=== PATIENT | male | born 1965 | race Caucasian/White ===

== ENCOUNTER 2023-09-02 11:04 | Outpatient (AMB) | payer OTHER, SELFPAY ==
[2023-09-02 11:15] VITALS: BP 136/68; PULSE 105; O2SAT 98; BMI 32.1
--- NOTE | 2023-09-02 11:15 | MHC.OFFVIS ---
Intake Vital Signs 09/02/23 11:15 Height 5 ft 10 in Weight 224 lb BMI 32.1 BP 136/68 Blood Pressure Location Lt brachial Position Sitting Pulse 105 H Pulse Source Pulse Oximeter Pulse Oximetry (%) 98 Oxygen Delivery Method Room Air Intake Visit Reasons: COPD Technician Terminal And Repeater Required: No Security Operations Engineer: Security Operations Engineer offered & declined Accompanied by: Self / Same As Patient Allergies No Known Allergies Allergy (Verified 09/02/23 11:20) Medication List - Last Reconciled 09/02/23 by Diamond Agudelo LPN amlodipine 10 mg PO DAILY atorvastatin 10 mg PO BEDTIME cyclosporine 0.05% 1 drp ophthalmic (eye) Q12H magnesium oxide 420 mg PO DAILY HPI COPD HPI Details Kvng is a pleasant 58 year old male, with less than 10 pack year history, quit 30+ years ago, with underlying COPD and hypertension. He was referred by PCP for pulmonary evaluation after spirometry revealed moderate obstruction. He reports dyspnea with minimal exertion, intermittent wheezing, chest tightness and dry cough over the last few months. He reports chest CT from 2020 noted nodules, however report not available. 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 He denies any prior respiratory conditions or pertinent family history. [facility] Social History (Updated 09/02/23 @ 11:24 by Diamond Agudelo LPN) Patient Tobacco Use Status: Former Tobacco user Tobacco use type: Cigarette Cigarette Packs Per Day: 1 Years Smoked: 5 Review of Systems Const Denies chills, Denies excessive sweating, Denies fever(s), Denies headache(s) and Denies night sweats Eyes Denies dry eyes, Denies irritation and Denies itchy eyes ENT Reports Normal hearing present, Denies headache(s), Denies nasal congestion, Denies nasal discharge, Denies post nasal drip and Denies sore throat Card Denies chest pain, Denies chest pain at rest, Denies chest pain with activity, Denies claudication, Denies leg edema, Denies orthopnea and Denies paroxysmal nocturnal dyspnea Resp Denies chest congestion, Denies excessive phlegm production, Denies pain on inspiration, Denies pain with cough and Denies stridor Musc Denies myalgias Neuro Reports Normal hearing present and Denies headache(s) Endo Denies excessive sweating Muaricio/Lymph Denies lymphadenopathy Aller/Immun Denies itchy eyes and Denies seasonal rhinorrhea Physical Exam Vital Signs: Last Vital Signs Pulse 105 H 09/02/23 11:15 BP 136/68 09/02/23 11:15 Pulse Ox 98 09/02/23 11:15 Oxygen Delivery Method Room Air 09/02/23 11:15 BMI result Body Mass Index 32.1 Const General: cooperative, healthy appearing, comfortable, no acute distress, well developed and alert Nutritional Appearance: obese Orientation/consciousness: patient oriented x3 Limitations: no limitations HEENT Head: Yes normal to inspection, Yes normocephalic and Yes atraumatic Ears: hearing grossly normal bilaterally and external ears normal Eyes General: appearance normal, both eyes and all related structures Eyelids: Yes eyelids normal Sclerae: sclerae normal EOM: EOMs intact bilaterally Neck Neck: Yes normal visual inspection and Yes no lymphadenopathy Lymphatic: no lymphadenopathy noted Chest Chest palpation & inspection: normal inspection of the chest Resp Effort & Inspection: normal respiratory effort, able to speak in complete sentences, no audible wheezes, no cough, no stridor, not tachypneic, no tripod positioning and no use of accessory muscles Auscultation: diminished lung sounds Cardio Jugular venous distension: no JVD Rate: regular rate Rhythm: regular rhythm Skin Other: warm, dry General skin exam: no rashes or lesions noted Neuro General: patient oriented x3 Cranial nerves: Yes Normal hearing present Cognition (Neuro): normal cognition Gait exam (Neuro): Normal gait present Extrem General: Yes normal to inspection, Yes capillary refill normal, Yes no clubbing, cyanosis or edema and Yes no pedal edema Psych Appearance: grossly normal and well kempt Speech and movement: Normal speech and movement present and Clear speech present Affect: normal affect Attitude: cooperative Thought process: Normal thought process present Thought content: Normal thought content present Insight: Good insight present (Psych) Judgement: Good judgement present (Psych) Assessment & Plan Assessment & Plan (1) COPD (chronic obstructive pulmonary disease): Code(s): J44.9 - Chronic obstructive pulmonary disease, unspecified (2) Dyspnea: Code(s): R06.00 - Dyspnea, unspecified (3) Pulmonary nodule: Code(s): R91.1 - Solitary pulmonary nodule Plan Kvng's symptoms are likely related to pulmonary etiologies. Will send for full PFT and chest CT. Will empically trial on Breo. Reviewed inhaler technique and importance of good oral hygiene. All questions were answered and patient is in agreement of plan. Will follow up to review results and response to inhaler. Orders: Orders PFT pulmonary function test Today R06.00 - Dyspnea, unspecified CT chest wo IV con Today R06.00 - Dyspnea, unspecified, R91.1 - Solitary pulmonary nodule Medications: New albuterol sulfate 90 mcg/actuation 2 puffs inhalation Q4-6H PRN 1 ea 3RF shortness of breath or wheezing fluticasone furoate-vilanterol 100-25 mcg/dose (Breo Ellipta) 1 inh inhalation DAILY 60 ea 3RF Coding Level of Care Code New Pt Level 4 (77701) Diagnoses COPD (chronic obstructive pulmonary disease) J44.9 Dyspnea R06.00 Pulmonary nodule R91.1
== END 2023-09-02 12:09 | disposition home or self-care (01) ==
PROVIDERS: PCP Family Medicine; Visit Provider Nurse Practitioner Family
DX: J44.9 Chronic obstructive pulmonary disease, unspecified (principal); R06.00 Dyspnea, unspecified; R91.1 Solitary pulmonary nodule
CPT/HCPCS: 99204

== ENCOUNTER → 2023-09-02 11:04 | Outpatient (BNVA) | payer OTHER, SELFPAY | PROVIDERS: PCP Family Medicine; Visit Provider Nurse Practitioner Family | DX: J44.9 Chronic obstructive pulmonary disease, unspecified (principal); R06.00 Dyspnea, unspecified; R91.1 Solitary pulmonary nodule | CPT/HCPCS: 99202 ==

== ENCOUNTER 2023-09-18 07:13 | Outpatient (REF) | payer OTHER, SELFPAY ==
--- NOTE | ~2023-09-18 | CT_ITS ---
EXAMINATION: CT CHEST WITHOUT CONTRAST CLINICAL INFORMATION: Solitary pulmonary nodule. COMPARISON: None available. TECHNIQUE: Multidetector volumetric CT imaging of the chest was done. Axial MIP volume rendering provided. Sagittal and coronal reformatted images were obtained. This CT examination was performed using dose optimization techniques as appropriate, variously including the following: *Automated exposure control *Adjustment of mA and/or kV according to patient size (this includes techniques or standardized protocols for targeted exams where dose is matched to indication/reason for exam; i.e. extremities or head) *Use of iterative reconstruction technique DLP: 181 mGy-cm FINDINGS: LUNGS: No suspicious pulmonary nodules. No focal consolidation. Central airways are patent. MEDIASTINUM: No bulky axillary, hilar or mediastinal lymphadenopathy. Calcified right hilar and subcarinal lymph nodes. Great vessels are of normal caliber. Heart size is normal. No pericardial effusion. CORONARY ARTERY CALCIFICATION: None visualized on this study. PLEURA: There is no pleural effusion. No pleural mass or thickening. UPPER ABDOMEN: Unremarkable. OSSEOUS STRUCTURES: No destructive bone lesions. CT/CT chest wo IV con IMPRESSION: No acute intrathoracic abnormality.
== END 2023-09-18 07:14 | disposition home or self-care (01) ==
LOC: HO.CT 07:13
PROVIDERS: PCP Family Medicine; Visit Provider Nurse Practitioner Family
DX: R91.1 Solitary pulmonary nodule (principal); R06.00 Dyspnea, unspecified
CPT/HCPCS: 71250

== ENCOUNTER 2023-10-28 14:47 | Outpatient (REF) | payer OTHER, SELFPAY ==
[2023-10-28 09:45] VITALS: PULSE 80; RESP 16; O2SAT 95
--- NOTE | 2023-10-28 15:35 | PFT_ITS ---
Flows: FEV1: 96 % of predicted at 3.47 L FVC: 88 % of predicted at 4.10 L FEV1/FVC: 85 % Bronchodilator response: Absent Volumes: No lung volumes measurements performed secondary to a technical issue. Diffusion capacity: Normal Impression: No obstructive ventilatory defect. No bronchodilator response. No lung volumes measurements performed secondary to technical a issue. MTDD
== END 2023-10-28 14:48 | disposition home or self-care (01) ==
LOC: HO.RESP 14:47
PROVIDERS: PCP Internal Medicine; Visit Provider Nurse Practitioner Family
DX: R06.00 Dyspnea, unspecified (principal)
CPT/HCPCS: 94010; 94640; 94727; 94729

== ENCOUNTER → 2023-10-28 15:35 | Outpatient (BNV) | payer OTHER, SELFPAY | PROVIDERS: PCP Internal Medicine; Visit Provider Internal Medicine Pulmonary Disease | DX: R06.00 Dyspnea, unspecified (principal) | CPT/HCPCS: 94060; 94729 ==

== ENCOUNTER 2023-11-11 08:31 | Outpatient (AMB) | payer OTHER, SELFPAY ==
--- NOTE | 2023-11-11 08:35 | A.OFFVIS_ITS ---
Intake Vital Signs 11/11/23 08:36 Height 5 ft 10 in Weight 227 lb BMI 32.6 BP 128/70 Pulse 79 Pulse Source Pulse Oximeter Pulse Oximetry (%) 100 Oxygen Delivery Method Room Air Intake Visit Reasons: copd: 10 week f/u Service Person Required: No Machine Packager: Machine Packager offered & declined Accompanied by: Self / Same As Patient Allergies No Known Allergies Allergy (Verified 11/11/23 08:39) Medication List - Last Reconciled 11/11/23 by Diamond Agudelo LPN albuterol sulfate 90 mcg/actuation 2 puffs inhalation Q4-6H PRN amlodipine 10 mg PO DAILY atorvastatin 10 mg PO BEDTIME cyclosporine 0.05% 1 drp ophthalmic (eye) Q12H fluticasone propion-salmeterol 100-50 mcg/dose (Wixela Inhub) 1 inh inhalation BID magnesium oxide 420 mg PO DAILY HPI copd: 10 week f/u HPI Details Kvng is a pleasant 58 year old male, with less than 10 pack year history, quit 30+ years ago, with underlying COPD and hypertension. He was referred by PCP for pulmonary evaluation after spirometry revealed moderate obstruction. He reports dyspnea with minimal exertion, intermittent wheezing, chest tightness and dry cough over the last few months. At the last visit, he was started on wixela with significant improvement in symptoms. He reports notable decrease in dyspnea, wheezing and chest tightness. He also reports diminished cough. He continues to use albuterol PRN with good effect. Today he presents to review PFT and chest CT. [facility] Social History (Updated 11/11/23 @ 08:40 by Diamond Agudelo LPN) Patient Tobacco Use Status: Former Tobacco user Tobacco use type: Cigarette Cigarette Packs Per Day: 1 Years Smoked: 5 Review of Systems Const Denies chills, Denies excessive sweating, Denies fever(s), Denies headache(s) and Denies night sweats Eyes Denies dry eyes, Denies irritation and Denies itchy eyes ENT Reports Normal hearing present, Denies headache(s), Denies nasal congestion, Denies nasal discharge, Denies post nasal drip and Denies sore throat Card Denies chest pain, Denies chest pain at rest, Denies chest pain with activity, Denies claudication, Denies leg edema, Denies dyspnea, Denies dyspnea on exertion, Denies orthopnea and Denies paroxysmal nocturnal dyspnea Resp Denies chest congestion, Denies excessive phlegm production, Denies pain on inspiration, Denies pain with cough, Denies dyspnea, Denies dyspnea on exertion, Denies stridor and Denies wheezing Musc Denies myalgias Neuro Reports Normal hearing present and Denies headache(s) Endo Denies excessive sweating Mauricio/Lymph Denies lymphadenopathy Aller/Immun Denies itchy eyes, Denies seasonal rhinorrhea and Denies wheezing Physical Exam Vital Signs: Last Vital Signs Pulse 79 11/11/23 08:36 BP 128/70 11/11/23 08:36 Pulse Ox 100 11/11/23 08:36 Oxygen Delivery Method Room Air 11/11/23 08:36 BMI result Body Mass Index 32.6 Const General: cooperative, healthy appearing, comfortable, no acute distress, well developed and alert Nutritional Appearance: obese Orientation/consciousness: patient oriented x3 Limitations: no limitations HEENT Head: Yes normal to inspection, Yes normocephalic and Yes atraumatic Ears: hearing grossly normal bilaterally and external ears normal Eyes General: appearance normal, both eyes and all related structures Eyelids: Yes eyelids normal Sclerae: sclerae normal EOM: EOMs intact bilaterally Neck Neck: Yes normal visual inspection and Yes no lymphadenopathy Lymphatic: no lymphadenopathy noted Chest Chest palpation & inspection: normal inspection of the chest Resp Effort & Inspection: normal respiratory effort, able to speak in complete sentences, no audible wheezes, no cough, no stridor, not tachypneic, no tripod positioning and no use of accessory muscles Auscultation: clear to auscultation bilaterally Cardio Jugular venous distension: no JVD Rate: regular rate Rhythm: regular rhythm Skin Other: warm, dry General skin exam: no rashes or lesions noted Neuro General: patient oriented x3 Cranial nerves: Yes Normal hearing present Cognition (Neuro): normal cognition Gait exam (Neuro): Normal gait present Extrem General: Yes normal to inspection, Yes capillary refill normal, Yes no clubbing, cyanosis or edema and Yes no pedal edema Psych Appearance: grossly normal and well kempt Speech and movement: Normal speech and movement present and Clear speech present Affect: normal affect Attitude: cooperative Thought process: Normal thought process present Thought content: Normal thought content present Insight: Good insight present (Psych) Judgement: Good judgement present (Psych) Results Reviewed Results Reviewed: [address] [address] [address] Scan Report Signed Patient: Kvng Cosme MR#: [id number] : 1965 Acct:[id number] Age/Sex: 58 / M ADM Date: 09/18/23 Loc: HO.CT Attending Dr: Lorin Batista NP Ordering Physician: Lorin Batista NP Date of Service: 09/18/23 Procedure(s): CT chest wo IV con Accession Number(s): [id number] cc: Pavel Schreiber MD; Lorin Batista NP~ EXAMINATION: CT CHEST WITHOUT CONTRAST CLINICAL INFORMATION: Solitary pulmonary nodule. COMPARISON: None available. TECHNIQUE: Multidetector volumetric CT imaging of the chest was done. Axial MIP volume rendering provided. Sagittal and coronal reformatted images were obtained. This CT examination was performed using dose optimization techniques as appropriate, variously including the following: *Automated exposure control *Adjustment of mA and/or kV according to patient size (this includes techniques or standardized protocols for targeted exams where dose is matched to indication/reason for exam; i.e. extremities or head) *Use of iterative reconstruction technique DLP: 181 mGy-cm FINDINGS: LUNGS: No suspicious pulmonary nodules. No focal consolidation. Central airways are patent. MEDIASTINUM: No bulky axillary, hilar or mediastinal lymphadenopathy. Calcified right hilar and subcarinal lymph nodes. Great vessels are of normal caliber. Heart size is normal. No pericardial effusion. CORONARY ARTERY CALCIFICATION: None visualized on this study. PLEURA: There is no pleural effusion. No pleural mass or thickening. UPPER ABDOMEN: Unremarkable. OSSEOUS STRUCTURES: No destructive bone lesions. CT/CT chest wo IV con IMPRESSION: No acute intrathoracic abnormality. Dictated By: Loretta Calle MD Signed By: <Electronically signed by Loretta Calle MD in OV> 09/21/23 1122 Assessment & Plan Assessment & Plan (1) Asthma: Code(s): J45.909 - Unspecified asthma, uncomplicated (2) Dyspnea: Code(s): R06.00 - Dyspnea, unspecified (3) Pulmonary nodule: Code(s): R91.1 - Solitary pulmonary nodule Plan Reviewed chest CT which was unremarkable, with no concerning pulmonary nodules. No need for further imaging, unless symptoms warrant. Reviewed PFT which did not reveal any obstructive or restrictive defect. There was no response to bronchodilator. TLC and DLCO within normal limits. However prior spirometry revealed moderate obstruction, which was before using Wixela. This is more consistent with asthma, rather than COPD. Advised patient to continue current regimen and if he has worsening control of symptoms to call office. Will send refills. All questions were answered and patient is in agreement of plan. Will follow in 6 months or sooner if needed. Medications: Refilled fluticasone propion-salmeterol 100-50 mcg/dose (Wixela Inhub) 1 inh inhalation BID 60 ea 6RF Coding Level of Care Code Est Pt Level 4 (86291) Diagnoses Asthma J45.909 Dyspnea R06.00 Pulmonary nodule R91.1
[2023-11-11 08:36] VITALS: BP 128/70; PULSE 79; O2SAT 100; BMI 32.6
== END 2023-11-11 08:57 | disposition home or self-care (01) ==
PROVIDERS: PCP Family Medicine; Referring Provider Family Medicine; Visit Provider Nurse Practitioner Family
DX: J45.909 Unspecified asthma, uncomplicated (principal); R06.00 Dyspnea, unspecified; R91.1 Solitary pulmonary nodule
CPT/HCPCS: 99214

== ENCOUNTER → 2023-11-11 08:31 | Outpatient (BNVA) | payer OTHER, SELFPAY | PROVIDERS: PCP Family Medicine; Visit Provider Nurse Practitioner Family | DX: R06.00 Dyspnea, unspecified (principal); J45.909 Unspecified asthma, uncomplicated; R91.1 Solitary pulmonary nodule | CPT/HCPCS: 99212 ==

== ENCOUNTER 2024-05-17 08:46 | Outpatient (AMB) | payer OTHER, SELFPAY ==
--- NOTE | 2024-05-17 08:34 | MHC.OFFVIS ---
Vital Signs 05/17/24 08:49 Height 5 ft 10 in Weight 212 lb 6 oz BMI 30.5 BP 126/74 Blood Pressure Location Rt brachial Position Sitting Pulse 74 Pulse Source Pulse Oximeter Pulse Oximetry (%) 97 Oxygen Delivery Method Room Air Intake Visit Reasons: copd: 6 month f/u Allergies No Known Allergies Allergy (Verified 05/17/24 08:54) HPI HPI copd: 6 month f/u: Details: Kvng is a pleasant 58 year old male, with less than 10 pack year history, quit 30+ years ago, with underlying asthma COPD overlap and hypertension. He has been moderately controlled on Wixela 100 mcg, reporting occasional dyspnea, dry cough and wheezing. He does use albuterol MDI 203 times per week with good effect. He denies any visits to urgent care or hospitalizations since the last visit. [facility] Social History (Reviewed 05/17/24 @ 08:54 by Catrina Claire [facility]) Patient Tobacco Use Status: Former Tobacco user Tobacco use type: Cigarette Cigarette Packs Per Day: 1 Years Smoked: 5 Review of Systems Const Denies chills, Denies excessive sweating, Denies fever(s), Denies headache(s) and Denies night sweats Eyes Denies dry eyes, Denies irritation and Denies itchy eyes ENT Reports Normal hearing present, Denies headache(s), Denies nasal congestion, Denies nasal discharge, Denies post nasal drip and Denies sore throat Card Denies chest pain, Denies chest pain at rest, Denies chest pain with activity, Denies claudication, Denies leg edema, Denies dyspnea, Reports dyspnea on exertion, Denies orthopnea and Denies paroxysmal nocturnal dyspnea Resp Denies chest congestion, Denies excessive phlegm production, Denies pain on inspiration, Denies pain with cough, Denies dyspnea, Reports dyspnea on exertion, Denies stridor and Reports wheezing Musc Denies myalgias Neuro Reports Normal hearing present and Denies headache(s) Endo Denies excessive sweating Mauricio/Lymph Denies lymphadenopathy Aller/Immun Denies itchy eyes, Denies seasonal rhinorrhea and Reports wheezing Physical Exam Vital Signs: Last Vital Signs Pulse 74 05/17/24 08:49 BP 126/74 05/17/24 08:49 Pulse Ox 97 05/17/24 08:49 Oxygen Delivery Method Room Air 09/17/24 08:49 BMI result Body Mass Index 30.5 Const General: cooperative, healthy appearing, comfortable, no acute distress, well developed and alert Nutritional Appearance: obese Orientation/consciousness: patient oriented x3 Limitations: no limitations HEENT Head: Yes normal to inspection, Yes normocephalic and Yes atraumatic Ears: hearing grossly normal bilaterally and external ears normal Eyes General: appearance normal, both eyes and all related structures Eyelids: Yes eyelids normal Sclerae: sclerae normal EOM: EOMs intact bilaterally Neck Neck: Yes normal visual inspection and Yes no lymphadenopathy Lymphatic: no lymphadenopathy noted Chest Chest palpation & inspection: normal inspection of the chest Resp Effort & Inspection: normal respiratory effort, able to speak in complete sentences, no audible wheezes, no cough, no stridor, not tachypneic, no tripod positioning and no use of accessory muscles Auscultation: clear to auscultation bilaterally Cardio Jugular venous distension: no JVD Rate: regular rate Rhythm: regular rhythm Skin Other: warm, dry General skin exam: no rashes or lesions noted Neuro General: patient oriented x3 Cranial nerves: Yes Normal hearing present Cognition (Neuro): normal cognition Gait exam (Neuro): Normal gait present Extrem General: Yes normal to inspection, Yes capillary refill normal, Yes no clubbing, cyanosis or edema and Yes no pedal edema Psych Appearance: grossly normal and well kempt Speech and movement: Normal speech and movement present and Clear speech present Affect: normal affect Attitude: cooperative Thought process: Normal thought process present Thought content: Normal thought content present Insight: Good insight present (Psych) Judgement: Good judgement present (Psych) Assessment & Plan Assessment & Plan (1) Asthma: Code(s): J45.909 - Unspecified asthma, uncomplicated Category: Medical (2) Dyspnea: Code(s): R06.00 - Dyspnea, unspecified Category: Medical (3) Pulmonary nodule: Code(s): R91.1 - Solitary pulmonary nodule Category: Medical Plan Will increase Wixela to [address] with pleural thickening, however not noted in report. Will send for repeat chest CT to assess stability. All questions were answered and patient is in agreement of plan. Will follow in 3-6 months or sooner if needed. Orders: Orders CT chest wo IV con Today J92.9 - Pleural plaque without asbestos Medications: New fluticasone propion-salmeterol 250-50 mcg/dose (Wixela Inhub) 1 inh inhalation Q12H 60 ea 6RF Refilled albuterol sulfate 90 mcg/actuation 2 puffs inhalation Q4-6H PRN 1 ea 3RF shortness of breath or wheezing Coding Level of Care Code Est Pt Level 4 (09743) Diagnoses Asthma J45.909 Dyspnea R06.00 Pulmonary nodule R91.1
[2024-05-17 08:49] VITALS: BP 126/74; PULSE 74; O2SAT 97; BMI 30.5
== END 2024-05-17 09:18 | disposition home or self-care (01) ==
PROVIDERS: PCP Family Medicine; Visit Provider Nurse Practitioner Family
DX: J45.909 Unspecified asthma, uncomplicated (principal); R06.00 Dyspnea, unspecified; R91.1 Solitary pulmonary nodule
CPT/HCPCS: 99214

== ENCOUNTER → 2024-05-17 08:46 | Outpatient (BNVA) | payer OTHER, SELFPAY | PROVIDERS: PCP Family Medicine; Visit Provider Nurse Practitioner Family | DX: J44.9 Chronic obstructive pulmonary disease, unspecified (principal); J92.9 Pleural plaque without asbestos; R91.1 Solitary pulmonary nodule; R06.00 Dyspnea, unspecified; Z87.891 Personal history of nicotine dependence | CPT/HCPCS: 99212 ==

== ENCOUNTER 2024-06-23 07:05 | Outpatient (REF) | payer OTHER, SELFPAY ==
--- NOTE | ~2024-06-23 | CT_ITS ---
EXAMINATION: CT CHEST WITHOUT CONTRAST CLINICAL INFORMATION: Pleural plaque without asbestos exposure. COMPARISON: 09/18/2023. TECHNIQUE: Multidetector volumetric CT imaging of the chest was done. Axial MIP volume rendering provided. Sagittal and coronal reformatted images were obtained. This CT examination was performed using dose optimization techniques as appropriate, variously including the following: *Automated exposure control *Adjustment of mA and/or kV according to patient size (this includes techniques or standardized protocols for targeted exams where dose is matched to indication/reason for exam; i.e. extremities or head) *Use of iterative reconstruction technique DLP: 216 mGy-cm FINDINGS: PULMONARY NODULES: -There are no new, enlarging, or suspicious pulmonary nodules. LUNGS: -Lungs are clear bilaterally without evidence of consolidation or abnormal groundglass opacity. -Minimal apical parenchymal scarring, right greater than left. -Minimal linear type atelectasis lingular segment. -No pleural effusion or pleural thickening identified. No pneumothorax. -Small airways are normal. The larger airways are patent. MEDIASTINUM: -Calcified subcarinal lymph node, as well as a small calcified right hilar lymph node, findings consistent with prior granulomatous disease. -No pathologic lymphadenopathy or masses. -Heart size normal. No pericardial effusion. -Imaged thyroid normal. -Aorta and main pulmonary artery are normal in caliber. -Normal cardiac size. No pericardial effusion. -Normal esophagus and GE junction. CORONARY ARTERY CALCIFICATION: None visualized on this study. PLEURA: There is no pleural effusion. No pleural mass or thickening. AXILLA/CHEST WALL: -No masses or lymphadenopathy. -Left axillary surgical clips. UPPER ABDOMEN: There are a few tiny splenic and hepatic calcified granuloma. The imaged upper abdomen is otherwise normal. OSSEOUS STRUCTURES: -No suspicious lytic or blastic bone lesion. Normal appearance. CT/CT chest wo IV con IMPRESSION: 1. No evidence of pleural thickening, or active lung disease. 2. No new or enlarging pulmonary nodule. 3. No evidence of metastatic disease in the thorax. 4. Ancillary findings as discussed in the body of the report. Electronically signed by: Bishop Guerrero MD 08/16/2024 01:51 PM EST
== END 2024-06-23 07:06 | disposition home or self-care (01) ==
LOC: HO.CT 07:05
PROVIDERS: PCP Internal Medicine; Visit Provider Nurse Practitioner Family
DX: J92.9 Pleural plaque without asbestos (principal)
CPT/HCPCS: 71250

== ENCOUNTER → 2024-06-23 07:10 | Outpatient (BNV) | payer OTHER, SELFPAY | PROVIDERS: PCP Internal Medicine; Visit Provider Radiology Diagnostic Radiology | DX: J92.9 Pleural plaque without asbestos (principal) | CPT/HCPCS: 71250 ==

== ENCOUNTER 2024-09-13 08:45 | Outpatient (AMB) | payer OTHER, SELFPAY ==
[2024-09-13 08:47] VITALS: BP 112/64; PULSE 65; O2SAT 99; BMI 32.1
--- NOTE | 2024-09-13 08:47 | MHC.OFFVIS ---
Vital Signs 09/13/24 08:47 Height 5 ft 10 in Weight 224 lb BMI 32.1 BP 112/64 Blood Pressure Location Rt brachial Position Sitting Pulse 65 Pulse Source Pulse Oximeter Pulse Oximetry (%) 99 Oxygen Delivery Method Room Air Intake Visit Reasons: copd: 6 month f/u Library Page Required: No Business Owner/Engineer: Business Owner/Engineer offered & declined Accompanied by: Self / Same As Patient Allergies No Known Allergies Allergy (Verified 09/13/24 08:53) Medication List - Last Reconciled 09/13/24 by Diamond Agudelo LPN albuterol sulfate 90 mcg/actuation 2 puffs inhalation Q4-6H PRN atorvastatin 10 mg PO BEDTIME fluticasone propion-salmeterol 250-50 mcg/dose (Wixela Inhub) 1 inh inhalation Q12H losartan 25 mg PO DAILY magnesium oxide 420 mg PO DAILY metoprolol succinate ER 25 mg PO BID HPI HPI copd: 6 month f/u: Details: Kvng is a pleasant 59 year old male, with less than 10 pack year history, quit 30+ years ago, with underlying asthma COPD overlap and hypertension. Since the last visit, he has been well controlled on Wixela 250 mcg, using albuterol MDI infrequently. He has noticed the cold weather triggering symptoms however minimal. He currently denies any respiratory symptoms. He denies any visits to urgent care or hospitalizations since the last visit. [facility] Social History Patient Tobacco Use Status: Former Tobacco user Tobacco use type: Cigarette Cigarette Packs Per Day: 1 Years Smoked: 5 Review of Systems Const Denies chills, Denies excessive sweating, Denies fever(s), Denies headache(s) and Denies night sweats Eyes Denies dry eyes, Denies irritation and Denies itchy eyes ENT Reports Normal hearing present, Denies headache(s), Denies nasal congestion, Denies nasal discharge, Denies post nasal drip and Denies sore throat Card Denies chest pain, Denies chest pain at rest, Denies chest pain with activity, Denies claudication, Denies leg edema, Denies dyspnea, Reports dyspnea on exertion, Denies orthopnea and Denies paroxysmal nocturnal dyspnea Resp Denies chest congestion, Denies excessive phlegm production, Denies pain on inspiration, Denies pain with cough, Denies dyspnea, Reports dyspnea on exertion and Denies stridor Musc Denies myalgias Neuro Reports Normal hearing present and Denies headache(s) Endo Denies excessive sweating Mauricio/Lymph Denies lymphadenopathy Aller/Immun Denies itchy eyes and Denies seasonal rhinorrhea Physical Exam Vital Signs: Last Vital Signs Pulse 65 09/13/24 08:47 BP 112/64 09/13/24 08:47 Pulse Ox 99 09/13/24 08:47 Oxygen Delivery Method Room Air 09/13/24 08:47 BMI result Body Mass Index 32.1 Const General: cooperative, healthy appearing, comfortable, no acute distress, well developed and alert Nutritional Appearance: obese Orientation/consciousness: patient oriented x3 Limitations: no limitations HEENT Head: Yes normal to inspection, Yes normocephalic and Yes atraumatic Ears: hearing grossly normal bilaterally and external ears normal Eyes General: appearance normal, both eyes and all related structures Eyelids: Yes eyelids normal Sclerae: sclerae normal EOM: EOMs intact bilaterally Neck Neck: Yes normal visual inspection and Yes no lymphadenopathy Lymphatic: no lymphadenopathy noted Chest Chest palpation & inspection: normal inspection of the chest Resp Effort & Inspection: normal respiratory effort, able to speak in complete sentences, no audible wheezes, no cough, no stridor, not tachypneic, no tripod positioning and no use of accessory muscles Auscultation: clear to auscultation bilaterally Cardio Jugular venous distension: no JVD Rate: regular rate Rhythm: regular rhythm Skin Other: warm, dry General skin exam: no rashes or lesions noted Neuro General: patient oriented x3 Cranial nerves: Yes Normal hearing present Cognition (Neuro): normal cognition Gait exam (Neuro): Normal gait present Extrem General: Yes normal to inspection, Yes capillary refill normal, Yes no clubbing, cyanosis or edema and Yes no pedal edema Psych Appearance: grossly normal and well kempt Speech and movement: Normal speech and movement present and Clear speech present Affect: normal affect Attitude: cooperative Thought process: Normal thought process present Thought content: Normal thought content present Insight: Good insight present (Psych) Judgement: Good judgement present (Psych) Assessment & Plan Assessment & Plan (1) Asthma: Code(s): J45.909 - Unspecified asthma, uncomplicated Category: Medical (2) Dyspnea: Code(s): R06.00 - Dyspnea, unspecified Category: Medical Plan At this time Kvng reports excellent control of respiratory symptoms on current regimen, advised to continue Wixela and albuterol MDI PRN. He is aware if symptoms worsen to call office. All questions were answered and patient is in agreement of plan. Will follow in 6-9 months or sooner if needed. Coding Level of Care Code Est Pt Level 3 (33547) Diagnoses Asthma J45.909 Dyspnea R06.00
== END 2024-09-13 09:03 | disposition home or self-care (01) ==
PROVIDERS: PCP Family Medicine; Visit Provider Nurse Practitioner Family
DX: J45.909 Unspecified asthma, uncomplicated (principal); R06.00 Dyspnea, unspecified
CPT/HCPCS: 99213

== ENCOUNTER → 2024-09-13 08:45 | Outpatient (BNVA) | payer OTHER, SELFPAY | PROVIDERS: PCP Family Medicine; Visit Provider Nurse Practitioner Family | DX: J44.89 Other specified chronic obstructive pulmonary disease (principal); I10 Essential (primary) hypertension; R06.00 Dyspnea, unspecified; Z87.891 Personal history of nicotine dependence | CPT/HCPCS: 99212 ==

== ENCOUNTER 2024-11-23 08:52 | Outpatient (AMB) | payer OTHER, SELFPAY ==
[2024-11-23 09:02] VITALS: BP 138/70; PULSE 58; O2SAT 99; BMI 31.9
--- NOTE | 2024-11-23 09:02 | A.OFFVIS_ITS ---
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 Mechanic offered & declined Accompanied by: Self / Same As Patient Allergies No Known Allergies Allergy (Verified 11/23/24 09:08) Medication List - Last Reconciled 11/23/24 by Diamond Agudelo LPN albuterol sulfate 90 mcg/actuation 2 puffs inhalation Q4-6H PRN atorvastatin 10 mg PO BEDTIME fluticasone propion-salmeterol 250-50 mcg/dose (Wixela Inhub) 1 inh inhalation Q12H losartan 25 mg PO DAILY magnesium oxide 420 mg PO DAILY metoprolol succinate ER 25 mg PO BID HPI HPI asthma: Details: Kvng is a pleasant 59 year old male, with less than 10 pack year history, quit 30+ years ago, with underlying asthma COPD overlap and hypertension. At baseline, he has been well controlled on Wixela 250 mcg, using albuterol MDI infrequently. However two weeks ago had an exacerbation, unknown trigger, with significant dyspnea, chest tightness, inability to fully inspire and persistent wheezing. He required albuterol MDI multiple times with suboptimal effect. He continues to report persistent dry cough since then. He is requesting a nebulizer for home use. He denies any visits to urgent care or hospitalizations since the last visit. [facility] Social History Patient Tobacco Use Status: Former Tobacco user Tobacco use type: Cigarette Cigarette Packs Per Day: 1 Years Smoked: 5 Review of Systems Const Denies chills, Denies excessive sweating, Denies fever(s), Denies headache(s) and Denies night sweats Eyes Denies dry eyes, Denies irritation and Denies itchy eyes ENT Reports Normal hearing present, Denies headache(s), Denies nasal congestion, Denies nasal discharge, Denies post nasal drip and Denies sore throat Card Denies chest pain, Denies chest pain at rest, Denies chest pain with activity, Denies claudication, Denies leg edema, Denies dyspnea, Reports dyspnea on exertion, Denies orthopnea and Denies paroxysmal nocturnal dyspnea Resp Denies change in phlegm color, Denies chest congestion, Reports cough, Denies hemoptysis, Denies excessive phlegm production, Denies pain on inspiration, Denies pain with cough, Denies dyspnea, Reports dyspnea on exertion, Denies stridor and Reports wheezing Musc Denies myalgias Neuro Reports Normal hearing present and Denies headache(s) Endo Denies excessive sweating Mauricio/Lymph Denies lymphadenopathy Aller/Immun Denies itchy eyes, Denies seasonal rhinorrhea and Reports wheezing Physical Exam Vital Signs: Last Vital Signs Pulse 58 11/23/24 09:02 BP 138/70 11/23/24 09:02 Pulse Ox 99 11/23/24 09:02 Oxygen Delivery Method Room Air 11/23/24 09:02 BMI result Body Mass Index 31.9 Const General: cooperative, healthy appearing, comfortable, no acute distress, well developed and alert Nutritional Appearance: obese Orientation/consciousness: patient oriented x3 Limitations: no limitations HEENT Head: Yes normal to inspection, Yes normocephalic and Yes atraumatic Ears: hearing grossly normal bilaterally and external ears normal Eyes General: appearance normal, both eyes and all related structures Eyelids: Yes eyelids normal Sclerae: sclerae normal EOM: EOMs intact bilaterally Neck Neck: Yes normal visual inspection and Yes no lymphadenopathy Lymphatic: no lymphadenopathy noted Chest Chest palpation & inspection: normal inspection of the chest Resp Other: postexhalation cough throughout respiratory exam Effort & Inspection: normal respiratory effort, able to speak in complete sentences, no audible wheezes, Actively coughing, no stridor, not tachypneic, no tripod positioning and no use of accessory muscles Auscultation: diminished lung sounds Cardio Jugular venous distension: no JVD Rate: regular rate Rhythm: regular rhythm Skin Other: warm, dry General skin exam: no rashes or lesions noted Neuro General: patient oriented x3 Cranial nerves: Yes Normal hearing present Cognition (Neuro): normal cognition Gait exam (Neuro): Normal gait present Extrem General: Yes normal to inspection, Yes capillary refill normal, Yes no clubbing, cyanosis or edema and Yes no pedal edema Psych Appearance: grossly normal and well kempt Speech and movement: Normal speech and movement present and Clear speech present Affect: normal affect Attitude: cooperative Thought process: Normal thought process present Thought content: Normal thought content present Insight: Good insight present (Psych) Judgement: Good judgement present (Psych) Assessment & Plan Assessment & Plan (1) Asthma: Code(s): J45.909 - Unspecified asthma, uncomplicated Category: Medical (2) Dyspnea: Code(s): R06.00 - Dyspnea, unspecified Category: Medical Plan Will send in prednisone for postexhalation cough after exacerbation two weeks ago. Will also send nebulizer for home use. Will continue on Wixela 250 mcg, however if symptoms continue to be less controlled will increase in Wixela 500 mcg. He is aware if symptoms do not improve to call office or if worsen seek emergent care. All questions were answered and patient is in agreement of plan. Will follow in 3 months or sooner if needed. Medications: New prednisone 40 mg (2 x 20 mg) PO DAILY 10 tabs 0RF Coding Level of Care Code Est Pt Level 4 (83409) Diagnoses Asthma J45.909 Dyspnea R06.00
== END 2024-11-23 09:23 | disposition home or self-care (01) ==
LOC: HO.HPSW 08:52
PROVIDERS: PCP Family Medicine; Visit Provider Nurse Practitioner Family
DX: J45.909 Unspecified asthma, uncomplicated (principal); R06.00 Dyspnea, unspecified
CPT/HCPCS: 99214

== ENCOUNTER → 2024-11-23 08:52 | Outpatient (BNVA) | payer OTHER, SELFPAY | PROVIDERS: PCP Family Medicine; Visit Provider Nurse Practitioner Family | DX: J45.909 Unspecified asthma, uncomplicated (principal); R06.00 Dyspnea, unspecified | CPT/HCPCS: 99212 ==

== ENCOUNTER 2024-12-15 08:08 | Outpatient (REF) | payer OTHER, SELFPAY ==
--- NOTE | ~2024-12-15 | XR_ITS ---
EXAMINATION: XR KNEE, LEFT CLINICAL INFORMATION: M25.562 - Pain in left knee COMPARISON: None available. TECHNIQUE: Four views of the left knee. FINDINGS: No fracture, dislocation, or suspicious bone lesion. Normal bone mineralization. Normal alignment. Mild medial compartment joint space narrowing. Lateral and patellofemoral compartments appear normal. Subtle chondrocalcinosis noted. No significant joint effusion. Soft tissues appear normal. XR/XR knee LT 3V IMPRESSION: 1. Subtle chondrocalcinosis. 2. Mild medial compartment osteoarthritis. Electronically signed by: Bishop Guerrero MD 12/15/2024 02:13 PM EDT
--- NOTE | ~2024-12-15 | XR_ITS ---
EXAMINATION: XR KNEE, RIGHT CLINICAL INFORMATION: M25.561 - Pain in right knee COMPARISON: None available. TECHNIQUE: Four views of the right knee. FINDINGS: No fracture, dislocation, or suspicious bone lesion. Normal bone mineralization. Normal alignment. Prior ACL repair. Chondrocalcinosis in the medial and lateral compartments. Mild to moderate medial compartment and mild lateral and patellofemoral compartment joint space narrowing. Subtle marginal spurs in the medial compartment. No significant joint effusion. Soft tissues appear normal. XR/XR knee RT 3V IMPRESSION: Chondrocalcinosis in the medial lateral compartments. Mild to moderate medial compartment and mild lateral and patellofemoral compartment arthritis. Prior ACL repair. Electronically signed by: Bishop Guerrero MD 12/15/2024 02:18 PM EDT
--- OUTSIDE RECORDS SUMMARY | 2024-12-15 08:24 | XMS_ITS | Encounter Summary ---
Author Name [facility] [place] [facility] [place] Address [address] [place] [address] Care Team Providers Care Solid Glass Rod Dowel Machine Operator Name Role Phone ИРИНА BAILEY Primary Care Provider JERICHO Mercedes Primary Care Provider Unavailabl e Insurance Providers: All historical and current Section Date Range: From patient's date of to the date document was created. This section includes the names of all active insurance providers for the patient. Insurance Provider Type of Coverage Plan Name Start of Policy Coverage End of Policy Coverage Group Number Member ID Insurance Provider's Telephone Number Policy Rust's Name Patient's Relationship to Policy Rust [employer] PRESCRIPT ION HDHP Aug 31, 2022 THPRX [id number] DADA BARRON PATIENT [facility] 2017 PRIME Aug 31, 2017 [id number] [phone] DADA BARRON PATIENT [facility] 2024 PRIME RETIR ED Aug 31, 2024 PRIME RETIRED [id number] DADA BARRON PATIENT [facility] LAUREN JOY E Aug 31, 2022 [id number] DADA BARRON PATIENT Selected Encounter This section includes the information on record at [place] for the Encounter. Date/Time Encounter Type Encounter Description Reason Provider Source Jun 06, 2024 02:30 PM CMPTR OPHTH IMG OPTIC NERVE OPTOMETRY ICD-10-CM H40.013 Open angle with borderline findings, low risk, bilateral ERI MCDONNELL Zachary Encounter Template Text not used by [place] Assessments - Encounter Diagnoses This section includes the primary and secondary diagnoses documented for the Encounter. Date/Time Primary/Secondary Diagnosis Diagnosis Name Provider Source Jun 06, 2024 02:30 PM PRIMARY Open angle with borderline findings, low risk, bilateral ERI MCDONNELL [place] [facility] [place] [facility] Plan of Treatment: Future Appointments (+ 6 months) and Future Tests (+/- 45 days) The Plan of Treatment section includes [facility] [place] [facility] This section includes future appointments and future orders which are active, pending or scheduled. Future Appointments This section includes appointments that were scheduled to occur 6 months from the date of the Encounter, up to a maximum of 20 appointments. The data comes from all [place] treatment facilities. Appointment Date/Time Appointment Type Appointme nt Facility Name Jun 09, 2024 10:30 AM AMBULATORY - MEDICINE [place] [facility] [place] [facility] Jun 20, 2024 10:00 AM AMBULATORY - MEDICINE [place] [facility] [place] [facility] Jun 30, 2024 09:45 AM AMBULATORY - MEDICINE [place] [facility] [place] [facility] Jul 12, 2024 09:00 AM AMBULATORY - MEDICINE [place] [facility] [place] [facility] Jul 12, 2024 03:00 PM AMBULATORY - MEDICINE [place] [facility] [place] [facility] Jul 18, 2024 09:30 AM AMBULATORY - REHAB MEDICIN E [place] [facility] [place] [facility] Jul 22, 2024 10:00 AM AMBULATORY - MEDICINE [place] [facility] [place] [facility] Aug 02, 2024 09:30 AM AMBULATORY - NONE [place] [facility] [place] [facility] Nov 23, 2024 09:15 AM AMBULATORY - MEDICINE [place] [facility] [place] [facility] Lab Results: +/- 30 days of the encounter This section includes the Chemistry and Hematology Lab Results on record with [facility] for the patient. Radiology Reports and Pathology Reports are provided separately, in subsequent sections. Lab Results This section contains the Chemistry/Hematology Results that were resulted 30 days before or 30 daysafter the date of the Encounter. Date/Time Source Result Type Result - Unit Interpretation Reference Range Specimen Type Comment May 18, 2024 12:00 AM [facility] [place] [facility] OCCULT BLOOD FIT X1 SCREEN(IN-HOUSE) FECES Sp ecimen Type: FECES No comment entered. Ordering Provider: JERICHO TORRES Report Released Date/Time: May 18, 2024 05:04 PM Reporting Lab: [facility] [address] [facility] [id number] Performing Lab: [facility] [address] [facility] [address] OCCULT BLOOD (FIT)#1 OF 1 Negative NEG Social History: Smoking Status (Most current) and Tobacco Use (All prior to encounter date) This section includes the most current, and the historical, smoking and tobacco- related health factors from the [place] facility where the Encounter took place. Current Smoking Status This section includes the most current smoking, or tobacco-related health factor, from the [place] facility where the Encounter took place. Date/Time Current Smoking Status Comment Kye ity Nov 18, 2023 11:00 AM [place]-TOBACCO [facility] Tobacco Use History This section includes a history of the smoking, or tobacco-related health factors, that were collected on or before the date of the Encounter. The data comes from the [place] facility where the Encounter took place. Date/Time Smoking Status/Tobacco Use Comment F acility Nov 18, 2023 11:00 AM VA-TOBACCO QUIT 15 YRS OR MORE [place] [facility] [place] [facility] Aug 01, 2022 10:30 AM VA-TOBACCO FORMER USER [place] [facility] [place] [facility] Aug 01, 2022 10:30 AM VA-TOBACCO QUIT 15 YRS OR MORE [facility] [place] [facility] 2021 09:56 AM VA-TOBACCO FORMER USER [place] [facility] [place] [facility] 2021 09:56 AM [place]-TOBACCO QUIT 15 YRS OR MORE [facility] [place] [facility] Radiology Reports: +/- 30 days of the encounter Radiology Reports For cases when an order for radiology services may have been completed prior to the date of the Encounter, the report list includes the Radiology Reports that were completed up to 30 days before dateof the Encounter. For cases when an order for radiology services may have been completed after the date of the Encounter, the report list also includes the Radiology Reports that were completed up to30 days after date of the Encounter. The data comes from all [place] treatment facilities. Date/Time Radiology Report Provider Source May 18, 2024 02:20 PM KNEE 3 VIEWS (RIGHT): FELIX BARRON [id number] -[id number] M Exm Date: MAY 18, 2024@14:20 Req Phys: JERICHO TORRES Loc: CWM/NO/PACT 2 (Req'g Loc) Img Loc: [facility]BUILDING 1 Service: [place] [address] (Case [id number] COMPLETE) KNEE 3 VIEWS (RIGHT) (RAD Detailed) CPT:77766 Reason for Study: sprain, look for fracture Clinical History: Report Status: Verified Date Reported: MAY 18, 2024 Date Verified: MAY 18, 2024 Road Train Driver E-Sig:/ES/BEN SAUCEDO JR Report: Study: AP weight-bearing views of the knees with lateral and sunrise views of the right knee. Comparison: AP view of the knees from January 28, 2023. Findings: The patient is again status post ACL repair. Medial and lateral meniscal chondrocalcinosis changes are again seen with moderate medial compartment degenerative, CPPD arthropathy or posttraumatic arthritic narrowing with preservation of the right knee lateral joint compartment. The right patella is mildly laterally subluxated with moderate narrowing of the lateral joint compartment resulting. There is no suprapatellar joint effusion present. No acute bony fracture is seen. The bony mineralization is normal. Single displaced femoral ACL graft retention suture anchor present in the distal thigh soft tissues superiorly, seen only on the lateral projection. Impression: Knee findings, as described above. Primary Diagnostic Code: No immediate attention required Primary Interpreting Staff: BEN SAUCEDO JR, Radiologist (Road Train Driver) /BEN PAULINO JR [facility] Encounter Notes: All associated encounter notes This section contains the clinical notes associated to the Encounter. Date/Time Encounter Note(s) Provider Source Jun 06, 2024 01:54 PM OPTOMETRY CONSULT: LOCAL TITLE: CONSULT REPORT/OPTOMETRY/SATHYA (Abdiel) STANDARD TITLE: OPTOMETRY CONSULT DATE OF NOTE: JUN 06, 2024@13:54 ENTRY DATE: JUN 06, 2024@13:54:25 AUTHOR: ERI MCDONNELL COSIGNER: URGENCY: STATUS: COMPLETED Active Problems: Active Problem Pain of right knee M25.561, Onset 0 05/18/2024 JERICHO TORRES Exposure to potentially hazardous s 10/20/2023 TORREY BAXTER COPD - Chronic Obstructive Pulmonar 07/21/2023 JERICHO TORRES Impaired fasting glucose R73.01, On 04/17/2023 JERICHO TORRES Cough R05.9, Onset 08/01/2022 JERICHO TORRES Mass of neck R22.1, Onset 08/01/2022 JERCIHO TORRES Migraine G43.909, Onset 06/03/2022 JERICHO TORRES Solitary pulmonary nodule R91.1, On 06/03/2022 JERICHO TORRES Hypercholesterolemia E78.00 2021 MICHAEL ROWELL HTN - Hypertension ([facility] [id number]) I 2021 MICHAEL ROWELL Active Medications ([facility]): Active Outpatient Medications (including Supplies): Active Outpatient Medications Status = 1) ALBUTEROL 90MCG (CFC-F) 200D ORAL INHL INHALE 2 PUFFS ACTIVE BY MOUTH EVERY 4 TO 6 HOURS NEEDED FOR SHORTNESS OF BREATH OR WHEEZING 2) ATORVASTATIN CALCIUM 20MG TAB TAKE ONE-HALF TABLET BY ACTIVE MOUTH AT BEDTIME FOR CHOLESTEROL 3) FLUTICAS 250/SALMETEROL 50 INHL DISK 60 INHALE 1 PUFF ACTIVE BY MOUTH EVERY 12 HOURS - RINSE MOUTH AFTER USE 4) MAGNESIUM OXIDE 420MG TAB TAKE ONE TABLET BY MOUTH ACTIVE ONCE DAILY 5) METOPROLOL TARTRATE 50MG TAB TAKE ONE TABLET BY MOUTH ACTIVE TWICE DAILY FOR BLOOD PRESSURE/HEART Active Non-VA Medications Status = 1) Non-VA ATORVASTATIN CALCIUM 20MG TAB 10MG BY MOUTH ACTIVE ONCE DAILY 6 Total Medications Active Medications (non-VA prescribed): Allergies: LISINOPRIL, AMLODIPINE S: Low risk open-angle glaucoma suspect OU is in for repeat threshold medina. O: Zoila fast 242 medina were run by wardrobe technician. A: Both medina are normal with within normal limits GHTN good fixation. History of low risk open-angle glaucoma suspect OU. P: Patient will schedule follow-up or within the next months. /presley/ ERI MCDONNELL OD STAFF SPEEDER TENDER Signed: 06/06/2024 14:31 ERI MCDONNELL [facility]
--- OUTSIDE RECORDS SUMMARY | 2024-12-15 08:24 | XMS_ITS | Continuity of Care Document ---
Author Name [facility] Organization [facility] Care Team Providers Care Transistor Tester Name Role Phone [facility] Unavailable Unavailable Problems Combined list of problems from Department of Defense and Veterans Affairs facilities. It does not include entries that were removed or entered in error. Problem Status Onset Date Problem Type Date of Resolution Comments Source Pain of right knee Active 08/31/19 24 Condition May 18, 2024 Entered By: EVE TORRES Comment: surgery x 2 [facility] COPD - Chronic Obstructive Pulmonary Disease (SCT [id number]) Active 08/31/19 23 Condition Jul 21, 2023 Entered By: EVE TORRES Comment: confirmed by PFT [facility] Impaired fasting glucose Active 08/31/19 23 Condition Apr 17, 2023 Entered By: EVE TORRES Comment: Provided education [facility] Cough Active 08/31/19 22 Condition Aug 01, 2022 Entered By: EVE TORRES Comment: work up in progress [facility] Mass of neck Active 08/31/19 22 Condition Aug 01, 2022 Entered By: EVE TORRES Comment: ordered u/s [facility] Migraine Active 08/31/19 22 Condition Jun 03, 2022 Entered By: EVE TORRES Comment: referred to neurology [facility] Solitary pulmonary nodule Active 08/31/19 22 Condition [facility] Exposure to potentially hazardous substance Active Condition Oct 20, 2023 Entered By: MARY KAY BAXTER SA Comment: Orignal ISAIAH Screen completed 08/01/22 [facility] HTN - Hypertension Active Condition [facility] HTN - Hypertension (SCT [id number]) Active Condition [facility] Hypercholesterolemia Active Condition [facility] Hyperlipidemia Active Condition [facility] Keratoconjunctivitis sicca Active Condition [facility] Keratoconus Active Condition [facility] 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, 2017 Entered By: KENDRA HUBER Comment: left arm w/ lymph node removal [facility] 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 [facility] 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 [facility] Diagnosis: ICD-10-CM J44.9 Chronic obstructive pulmonary disease, unspecified Active Diagnosis [facility] Diagnosis: ICD-10-CM I10 Essential (primary) hypertension Active Diagnosis [facility] Diagnosis: ICD-10-CM Z46.1 Encounter for fitting and adjustment of hearing aid Active Diagnosis [facility] Diagnosis: ICD-10-CM Z46.0 Encounter for fit/adjst of spectacles and contact lenses Active Diagnosis [facility] Diagnosis: ICD-10-CM 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, bilateral Active Diagnosis [facility] Diagnosis: ICD-10-CM H40.013 Open angle with borderline findings, low risk, bilateral Active Diagnosis [facility] Diagnosis: ICD-10-CM M25.561 Pain in right knee Active Diagnosis [facility] Diagnosis: ICD-10-CM Z13.6 Encounter for screening for cardiovascular disorders Active Diagnosis [facility] Diagnosis: ICD-10-CM Z02.89 Encounter for other administrative examinations Active Diagnosis [facility] Medications Combined list of outpatient medications from Department of Defense and Veterans Affairs facilities.Medications provided include 1) outpatient medications from the last 15 months, and 2) patient-reported medications. Medication Details Route Status Patient Instructions Prescription Expires Prescription Number Last Dispense Date Ordering Provider Order Date Order Qty Source ALBUTEROL 90MCG/ACTUA T (CFC-F) INHL,ORAL,8 .5GM DOSE COUNTER INHALE 2 PUFFS BY MOUTH EVERY 4 TO 6 HOURS NEEDED FOR SHORTNES S OF BREATH OR WHEEZING RESPIR ATORY (INHAL ATION) ACTIVE 10/19/2025 [id number] CASISUS FARAH 2024 1 [facility] ALBUTEROL 90MCG/ACTUA T (CFC-F) INHL,ORAL,8 .5GM DOSE COUNTER INHALE 2 PUFFS BY MOUTH EVERY 4 TO 6 HOURS NEEDED FOR SHORTNES S OF BREATH OR WHEEZING RESPIR ATORY (INHAL ATION) DISCONT INUED 05/18/2025 [id number] 4 CASSIUS FARAH 2023 1 [facility] ALBUTEROL 90MCG/ACTUA T (CFC-F) INHL,ORAL,8 .5GM DOSE COUNTER INHALE 2 PUFFS BY MOUTH EVERY 4 TO 6 HOURS NEEDED FOR SHORTNES S OF BREATH OR WHEEZING RESPIR ATORY (INHAL ATION) DISCONT INUED 09/03/2024 [id number] 4 CASSIUS FARAH 2023 1 [facility] ALBUTEROL SO4 0.083% INHL,3ML INHALE 1 AMPULE IN NEBULIZE R EVERY 4 TO 6 HOURS NEEDED FOR BREATHIN G RESPIR ATORY (INHAL ATION) ACTIVE 02/21/2025 [id number] 5 CASSIUS FARAH 2024 180 [facility] AMLODIPINE BESYLATE 10MG TAB TAKE ONE TABLET BY MOUTH ONCE DAILY FOR BLOOD PRESSURE /HEART, DO NOT TAKE WITH GRAPEFRU IT JUICE ORAL DISCONT INUED BY PROVIDE R 08/18/2024 [id number] 4 KARLA TORRES ZACHARY D 2022 90 [facility] ATORVASTATI N CA 20MG TAB TAKE ONE-HALF TABLET BY MOUTH AT BEDTIME FOR CHOLESTE ROL ORAL ACTIVE 06/24/2025 [id number] 5 KARLA TORRES ZACHARY D 2023 45 [facility] ATORVASTATI N CA 20MG TAB TAKE ONE-HALF TABLET BY MOUTH AT BEDTIME FOR CHOLESTE ROL ORAL DISCONT INUED 08/03/2024 [id number] 4 KARLA TORRES 2022 45 [facility] ATORVASTATI N CA 20MG TAB TAKE ONE-HALF TABLET BY MOUTH ONCE DAILY ORAL ACTIVE CATALINO ROWELL VLOC DOYLE 2020 [facility] CYCLOSPORIN E 0.05% (PF) EMULSION,OP H,0.4ML INSTILL 1 DROP INTO EACH EYE TWICE DAILY FOR DRY EYE OPHTHA LMIC ACTIVE 06/10/2025 [id number] 4 ARTIS LAWRENCE AH B 2023 180 [facility] FLUTICASONE 100MCG/SALM ETEROL 50MCG INHL,ORAL,D ISKUS,60 INHALE 1 PUFF BY MOUTH TWICE DAILY - RINSE MOUTH AFTER USE RESPIR ATORY (INHAL ATION) DISCONT INUED 11/11/2024 [id number] 4 CASSIUS FARAH 2023 1 [facility] FLUTICASONE 100MCG/SALM ETEROL 50MCG INHL,ORAL,D ISKUS,60 INHALE 1 PUFF BY MOUTH TWICE DAILY - RINSE MOUTH AFTER USE RESPIR ATORY (INHAL ATION) DISCONT INUED 09/04/2024 [id number] 4 CASSIUS FARAH 2023 1 [facility] FLUTICASONE 250MCG/SALM ETEROL 50MCG INHL,ORAL,D ISKUS,60 INHALE 1 PUFF BY MOUTH TWICE DAILY - RINSE MOUTH AFTER USE RESPIR ATORY (INHAL ATION) SUSPEND ED 10/19/2025 [id number] 5 CASSIUS FARAH 2024 1 [facility] FLUTICASONE 250MCG/SALM ETEROL 50MCG INHL,ORAL,D ISKUS,60 INHALE 1 PUFF BY MOUTH EVERY 12 HOURS - RINSE MOUTH AFTER USE RESPIR ATORY (INHAL ATION) DISCONT INUED 05/18/2025 [id number] 5 CASSIUS FARAH 2023 1 [facility] LOS[place]AN 25MG TAB TAKE ONE TABLET BY MOUTH ONCE DAILY FOR BLOOD PRESSURE /HEART ORAL ACTIVE 06/22/2025 [id number] 5 KARLA TORRES D 2023 30 [facility] MAGNESIUM OXIDE 420MG TAB TAKE ONE TABLET BY MOUTH ONCE DAILY ORAL ACTIVE 11/02/2025 [id number] 5 KARLA TORRES ZACHARY D 2024 90 [facility] MAGNESIUM OXIDE 420MG TAB TAKE ONE TABLET BY MOUTH ONCE DAILY ORAL DISCONT INUED 07/21/2024 [id number] 4 KARLA TORRES D 2022 90 [facility] METOPROLOL TARTRATE 25MG TAB TAKE ONE-HALF TABLET BY MOUTH TWICE DAILY FOR BLOOD PRESSURE /HEART ORAL DISCONT INUED BY PROVIDE R 03/26/2025 [id number] 4 KARLA TORRES 2023 90 [facility] METOPROLOL TARTRATE 50MG TAB TAKE ONE TABLET BY MOUTH TWICE DAILY FOR BLOOD PRESSURE /HEART ORAL ACTIVE 06/22/2025 [id number] 5 KARLA TORRES D 2023 180 [facility] METOPROLOL TARTRATE 50MG TAB TAKE ONE TABLET BY MOUTH TWICE DAILY FOR BLOOD PRESSURE /HEART ORAL DISCONT INUED (EDIT) 05/19/2025 [id number] 4 KARLA TORRES D 2023 60 [facility] NO KNOWN NON-VA MEDS MISCELLANEO US ACTIVE TYLER BOBO 2019 [facility] PREDNISONE 20MG TAB TAKE TWO TABLETS BY MOUTH ONCE DAILY ORAL ACTIVE 12/23/2024 [id number] 5 CASSIUS FARAH 2024 10 [facility] Allergies, Adverse Reactions, Alerts Combined list of allergies from Department of Defense and Veterans Affairs facilities. It does not include entries that were removed or entered in error. Substance Category Reaction Severity Reaction type Status Date Reported Comments Source AMLODIPINE Propensity to adverse reactions to drug (finding) Edema MILD active 4 [facility] LISINOPRIL Propensity to adverse reactions to drug (finding) Cough MODERATE active 3 [facility] Immunizations Combined list of available immunizations from the Department of [facility] and Veterans Affairs facilities. Immunization Series Date Given Administered By Site Reaction Lot Number CVX Code Drug Molder Punch Status Comments Source INFLUENZA, SPLIT VIRUS, TRIVALENT, PF 2023 X[place] TAP[place] [id number] 140 complet ed [facility] INFLUENZA, INJECTABLE, QUADRIVALENT, PRESERVATIVE FREE 2022 MARIBEL WAGNER LEFT DELTO ID [id number] 150 complet ed Completed Series, [facility] INFLUENZA, INJECTABLE, QUADRIVALENT, PRESERVATIVE FREE 2021 150 complet ed [facility] INFLUENZA, INJECTABLE, QUADRIVALENT, PRESERVATIVE FREE 2020 150 complet ed [facility] COVID-19 (MODERNA), MRNA, LNP-S, PF, 100 MCG/0.5 ML DOSE 2 2020 207 complet ed MOD; [id number]; 1 [facility] COVID-19 (MODERNA), MRNA, LNP-S, PF, 100 MCG OR 50 MCG DOSE 1 2020 207 complet ed [facility] ZOSTER RECOMBINANT 2 2019 187 complet ed [facility] INFLUENZA, INJECTABLE, QUADRIVALENT 2018 158 complet ed [facility] ZOSTER RECOMBINANT 1 2018 187 complet ed [facility] INFLUENZA, TRIVALENT, ADJUVANTED 2018 168 complet ed [facility] TDAP 2015 115 complet ed [facility] Results Combined list of recent chemistry, hematology and other laboratory results from Department of Defense and Veterans Affairs, ranging from 15 months to all on record, depending upon the facility. Order Name Results Value Reference Range Date Interpretation Specimen Comments Source BASIC METABOLI C PANEL (non-fas ting) UREA NITROGEN [MASS/VOLU ME] IN SERUM OR PLASMA 21 mg/dL 7 - 25 08/02 Specimen Type: SERUM No comment entered. Ordering Provider: EVE TORRES Report Released Date/Time: Jun 21, 2024 05:43 PM Reporting Lab: [facility] [place] [facility] [address] [facility] [address] Performing Lab: [facility] [place] [facility] [address] [facility] [address] [facility] [place] [facility] BASIC METABOLI C PANEL (non-fas ting) GLUCOSE [MASS/VOLU ME] IN SERUM OR PLASMA 112 mg/dL 65 - 100 08/02 H Specimen Type: SERUM No comment entered. Ordering Provider: EVE TORRES Report Released Date/Time: Jun 21, 2024 05:43 PM Reporting Lab: [facility] [place] [facility] [address] [facility] [address] Performing Lab: [facility] [place] [facility] [address] [facility] [address] [facility] [place] [facility] BASIC METABOLI C PANEL (non-fas ting) SODIUM [MOLES/VOL UME] IN SERUM OR PLASMA 137 mmol/L 135 - 145 08/02 Specimen Type: SERUM No comment entered. Ordering Provider: EVE TORRES Report Released Date/Time: Jun 21, 2024 05:43 PM Reporting Lab: [facility] [place] [facility] [address] [facility] [address] Performing Lab: [facility] [place] [facility] [address] [facility] [address] [facility] [place] [facility] BASIC METABOLI C PANEL (non-fas ting) POTASSIUM [MOLES/VOL UME] IN SERUM OR PLASMA 4.6 mmol/L 3.5 - 5.0 08/02 Specimen Type: SERUM No comment entered. Ordering Provider: EVE TORRES Report Released Date/Time: Jun 21, 2024 05:43 PM Reporting Lab: [facility] [address] [address] Performing Lab: [facility] [address] [address] [facility] BASIC METABOLI C PANEL (non-fas ting) CHLORIDE [MOLES/VOL UME] IN SERUM OR PLASMA 102 mmol/L 100 - 110 08/02 Specimen Type: SERUM No comment entered. Ordering Provider: EVE TORRES Report Released Date/Time: Jun 21, 2024 05:43 PM Reporting Lab: [facility] [address] Performing Lab: [facility] [address] [facility]N [facility] BASIC METABOLI C PANEL (non-fas ting) CARBON DIOXIDE, TOTAL [MOLES/VOL UME] IN SERUM OR PLASMA 24 meq/L 20 - 30 08/02 Specimen Type: SERUM No comment entered. Ordering Provider: EVE TORRES Report Released Date/Time: Jun 21, 2024 05:43 PM Reporting Lab: [facility] [address] Performing Lab: [facility] [address] [address] [facility] BASIC METABOLI C PANEL (non-fas ting) CREATININE [MASS/VOLU ME] IN SERUM OR PLASMA 0.97 mg/dL 0.50 - 1.40 08/02 Specimen Type: SERUM No comment entered. Ordering Provider: EVE TORRES Report Released Date/Time: Jun 21, 2024 05:43 PM Reporting Lab: [facility] [address] Performing Lab: [facility] [address] [facility] [address] [facility] BASIC METABOLI C PANEL (non-fas ting) GLOMERULAR FILTRATION RATE/1.73 SQ M.PREDICTE D [VOLUME RATE/AREA] IN SERUM, PLASMA OR BLOOD BY CREATININE -BASED FORMULA (CKD-EPI 2020) 89 mL/min 60 08/02 Specimen Type: SERUM No comment entered. Ordering Provider: EVE TORRES Report Released Date/Time: Jun 21, 2024 05:43 PM Reporting Lab: [facility] [address] Performing Lab: [facility] [address] [facility] OCCULT BLOOD FIT X1 SCREEN(I N-HOUSE) HEMOGLOBIN .GASTROINT ESTINAL.LO WER [PRESENCE] IN STOOL BY IMMUNOASSA Y Negative 05/18 Specimen Type: FECES No comment entered. Ordering Provider: EVE TORRES Report Released Date/Time: May 18, 2024 05:04 PM Reporting Lab: [facility] [address] Performing Lab: [facility] [address] [facility] L[facility] PROTEIN [MASS/VOLU ME] IN SERUM OR PLASMA 7.1 g/dL 6.0 - 8.3 11/15 Specimen Type: SERUM No comment entered. Ordering Provider: EVE TORRES Report Released Date/Time: Nov 07, 2023 04:13 PM Reporting Lab: [facility] [address] Performing Lab: [facility] [address] [facility] ALBUMIN [MASS/VOLU ME] IN SERUM OR PLASMA 4.2 g/dL 3.5 - 5.0 11/15 Specimen Type: SERUM No comment entered. Ordering Provider: EVE TORRES Report Released Date/Time: Nov 07, 2023 04:13 PM Reporting Lab: [facility] [place] [facility] [address] [facility] [address] Performing Lab: [facility] [place] [facility] [address] [facility] [address] [facility] [place] [facility] LIVER FUNCTION ALKALINE PHOSPHATAS E [ENZYMATIC ACTIVITY/V OLUME] IN SERUM OR PLASMA 56 U/L 40 - 150 11/15 Specimen Type: SERUM No comment entered. Ordering Provider: EVE TORRES Report Released Date/Time: Nov 07, 2023 04:13 PM Reporting Lab: [facility] [place] [facility] [address] [facility] [address] Performing Lab: [facility] [place] [facility] [address] [facility] [address] [facility] [place] [facility] LIVER FUNCTION ASPARTATE AMINOTRANS FERASE [ENZYMATIC ACTIVITY/V OLUME] IN SERUM OR PLASMA 15 U/L 5 - 34 11/15 Specimen Type: SERUM No comment entered. Ordering Provider: EVE TORRES Report Released Date/Time: Nov 07, 2023 04:13 PM Reporting Lab: [facility] [place] [facility] [address] [facility] [address] Performing Lab: [facility] [place] [facility] [address] [facility] [address] [facility] [place] [facility] LIVER FUNCTION ALANINE AMINOTRANS FERASE [ENZYMATIC ACTIVITY/V OLUME] IN SERUM OR PLASMA 27 U/L 11/15 Specimen Type: SERUM No comment entered. Ordering Provider: EVE TORRES Report Released Date/Time: Nov 07, 2023 04:13 PM Reporting Lab: [facility] [place] [facility] [address] [facility] [address] Performing Lab: [facility] [place] [facility] [address] [facility] [address] [facility] [place] [facility] LIVER FUNCTION BILIRUBIN. TOTAL [MASS/VOLU ME] IN SERUM OR PLASMA 0.5 mg/dL 0.2 - 1.2 11/15 Specimen Type: SERUM No comment entered. Ordering Provider: EVE TORRES Report Released Date/Time: Nov 07, 2023 04:13 PM Reporting Lab: [facility] [place] [facility] [address] [facility] [address] Performing Lab: [facility] [place] [facility] [address] [facility] [address] [facility] [place] [facility] BASIC METABOLI C PANEL (fasting ) UREA NITROGEN [MASS/VOLU ME] IN SERUM OR PLASMA 15 mg/dL 7 - 25 11/15 Specimen Type: SERUM No comment entered. Ordering Provider: EVE TORRES Report Released Date/Time: Nov 07, 2023 04:13 PM Reporting Lab: [facility] [place] [facility] [address] [facility] [address] Performing Lab: [facility] [place] [address] [address] [facility] [place] [facility] BASIC METABOLI C PANEL (fasting ) GLUCOSE [MASS/VOLU ME] IN SERUM OR PLASMA 151 mg/dL 65 - 100 11/15 H Specimen Type: SERUM No comment entered. Ordering Provider: EVE TORRES Report Released Date/Time: Nov 07, 2023 04:13 PM Reporting Lab: [facility] [place] [address] [address] Performing Lab: [facility] [place] [address] [address] [facility] [place] [facility] BASIC METABOLI C PANEL (fasting ) SODIUM [MOLES/VOL UME] IN SERUM OR PLASMA 137 mmol/L 135 - 145 11/15 Specimen Type: SERUM No comment entered. Ordering Provider: EVE TORRES Report Released Date/Time: Nov 07, 2023 04:13 PM Reporting Lab: [facility] [place] [facility] [address] [facility] [address] Performing Lab: [facility] [place] [address] [address] [facility] [place] [facility] BASIC METABOLI C PANEL (fasting ) POTASSIUM [MOLES/VOL UME] IN SERUM OR PLASMA 4.3 mmol/L 3.5 - 5.0 11/15 Specimen Type: SERUM No comment entered. Ordering Provider: EVE TORRES Report Released Date/Time: Nov 07, 2023 04:13 PM Reporting Lab: [facility] [address] [address] Performing Lab: [facility] [address] [address] [facility] BASIC METABOLI C PANEL (fasting ) CHLORIDE [MOLES/VOL UME] IN SERUM OR PLASMA 102 mmol/L 100 - 110 11/15 Specimen Type: SERUM No comment entered. Ordering Provider: EVE TORRES Report Released Date/Time: Nov 07, 2023 04:13 PM Reporting Lab: [address] [address] Performing Lab: [facility] [address] [address] [facility] BASIC METABOLI C PANEL (fasting ) CARBON DIOXIDE, TOTAL [MOLES/VOL UME] IN SERUM OR PLASMA 26 meq/L 20 - 30 11/15 Specimen Type: SERUM No comment entered. Ordering Provider: EVE TORRES Report Released Date/Time: Nov 07, 2023 04:13 PM Reporting Lab: [facility] [address] [address] Performing Lab: [facility] [address] [address] [facility] BASIC METABOLI C PANEL (fasting ) CREATININE [MASS/VOLU ME] IN SERUM OR PLASMA 0.94 mg/dL 0.50 - 1.40 11/15 Specimen Type: SERUM No comment entered. Ordering Provider: EEV TORRES Report Released Date/Time: Nov 07, 2023 04:13 PM Reporting Lab: [facility] [address] [address] Performing Lab: [facility] [place] [facility] [address] [facility] [address] [facility] [place] [facility] BASIC METABOLI C PANEL (fasting ) GLOMERULAR FILTRATION RATE/1.73 SQ M.PREDICTE D [VOLUME RATE/AREA] IN SERUM, PLASMA OR BLOOD BY CREATININE -BASED FORMULA (CKD-EPI 2020) >90mL/mi n 60 11/15 Specimen Type: SERUM No comment entered. Ordering Provider: EVE TORRES Report Released Date/Time: Nov 07, 2023 04:13 PM Reporting Lab: [facility] [place] [facility] [address] [facility] [address] Performing Lab: [facility] [place] [facility] [address] [facility] [address] [facility] [place] [facility] TSH THYROTROPI N [UNITS/VOL UME] IN SERUM OR PLASMA 1.79 u[IU]/mL 0.35 - 5.00 11/15 Specimen Type: SERUM No comment entered. Ordering Provider: EVE TORRES Report Released Date/Time: Nov 07, 2023 04:13 PM Reporting Lab: [facility] [place] [place] [facility] [address] [facility] [address] Performing Lab: [facility] [place] [facility] [address] [facility] [address] [facility] [place] [facility] CBC AND DIFF (AUTO) LEUKOCYTES [#/VOLUME] IN BLOOD BY AUTOMATED COUNT 6.17 10*3/uL 4.50 - 11.00 11/15 Specimen Type: BLOOD No comment entered. Ordering Provider: EVE TORRES Report Released Date/Time: Nov 07, 2023 04:13 PM Reporting Lab: [facility] [place] [facility] [address] [facility] [address] Performing Lab: [facility] [address] [facility] [address] [facility] [place] [facility] CBC AND DIFF (AUTO) ERYTHROCYT ES [#/VOLUME] IN BLOOD BY AUTOMATED COUNT 4.84 10*6/uL 4.23 - 5.66 11/15 Specimen Type: BLOOD No comment entered. Ordering Provider: EVE TORRES Report Released Date/Time: Nov 07, 2023 04:13 PM Reporting Lab: [facility] [place] [facility] [address] [facility] [address] Performing Lab: [facility] [place] [facility] [address] [facility] [address] [facility] [place] [facility] CBC AND DIFF (AUTO) HEMOGLOBIN [MASS/VOLU ME] IN BLOOD 14.2 g/dL 12.8 - 17 11/15 Specimen Type: BLOOD No comment entered. Ordering Provider: EVE TORRES Report Released Date/Time: Nov 07, 2023 04:13 PM Reporting Lab: [facility] [place] [facility] [address] [facility] [address] Performing Lab: [facility] [place] [address] [address] [facility] [place] [facility] CBC AND DIFF (AUTO) HEMATOCRIT [VOLUME FRACTION] OF BLOOD BY AUTOMATED COUNT 42.6 39.2 - 50.4 11/15 Specimen Type: BLOOD No comment entered. Ordering Provider: EVE OTRRES Report Released Date/Time: Nov 07, 2023 04:13 PM Reporting Lab: [facility] [place] [facility] [address] [facility] [address] Performing Lab: [facility] [place] [facility] [address] [facility] [address] [facility] [place] [facility] CBC AND DIFF (AUTO) MCV [ENTITIC VOLUME] BY AUTOMATED COUNT 88.0 fL 82 - 99 11/15 Specimen Type: BLOOD No comment entered. Ordering Provider: EVE TORRES Report Released Date/Time: Nov 07, 2023 04:13 PM Reporting Lab: [facility] [place] [facility] [address] [facility] [address] Performing Lab: [facility] [place] [facility] [address] [facility] [address] [facility] CBC AND DIFF (AUTO) MCHC [MASS/VOLU ME] BY AUTOMATED COUNT 33.3 g/dL 30.8 - 35.1 11/15 Specimen Type: BLOOD No comment entered. Ordering Provider: EVE TORRES Report Released Date/Time: Nov 07, 2023 04:13 PM Reporting Lab: [facility] [place] [facility] [address] [facility] [address] Performing Lab: [facility] [place] [facility] [address] [facility] [address] [facility] [place] [facility] CBC AND DIFF (AUTO) PLATELETS [#/VOLUME] IN BLOOD BY AUTOMATED COUNT 262 10*3/uL 140 - 360 11/15 Specimen Type: BLOOD No comment entered. Ordering Provider: EVE TORRES Report Released Date/Time: Nov 07, 2023 04:13 PM Reporting Lab: [facility] [place] [address] [address] Performing Lab: [facility] [place] [facility] [address] [facility] [address] [facility] CBC AND DIFF (AUTO) ERYTHROCYT E DISTRIBUTI ON WIDTH [RATIO] BY AUTOMATED COUNT 12.3 12.0 - 16.0 11/15 Specimen Type: BLOOD No comment entered. Ordering Provider: EVE TORRES Report Released Date/Time: Nov 07, 2023 04:13 PM Reporting Lab: [facility] [place] [facility] [address] [facility] [address] Performing Lab: [facility] [place] [facility] [address] [facility] [address] [facility] [place] [facility] CBC AND DIFF (AUTO) MONOCYTES [#/VOLUME] IN BLOOD BY AUTOMATED COUNT 0.56 10*3/uL 0.30 - 1.10 11/15 Specimen Type: BLOOD No comment entered. Ordering Provider: EVE TORRES Report Released Date/Time: Nov 07, 2023 04:13 PM Reporting Lab: [facility] [place] [facility] [address] [facility] [address] Performing Lab: [facility] [place] [address] [facility] [address] [facility] CBC AND DIFF (AUTO) MCH [ENTITIC MASS] BY AUTOMATED COUNT 29.3 pg 26.2 - 32.6 11/15 Specimen Type: BLOOD No comment entered. Ordering Provider: EVE TORRES Report Released Date/Time: Nov 07, 2023 04:13 PM Reporting Lab: [facility] [address] [facility] [address] Performing Lab: [facility] [address] [facility] [address] [facility] CBC AND DIFF (AUTO) NEUTROPHIL S/100 LEUKOCYTES IN BLOOD BY AUTOMATED COUNT 62.7 43.7 - 75.8 11/15 Specimen Type: BLOOD No comment entered. Ordering Provider: EVE TORRES Report Released Date/Time: Nov 07, 2023 04:13 PM Reporting Lab: [facility] [address] [facility] [address] Performing Lab: [facility] [address] [facility] [address] [facility] CBC AND DIFF (AUTO) LYMPHOCYTE S/100 LEUKOCYTES IN BLOOD BY AUTOMATED COUNT 24.3 14.0 - 42.3 11/15 Specimen Type: BLOOD No comment entered. Ordering Provider: EVE TORRES Report Released Date/Time: Nov 07, 2023 04:13 PM Reporting Lab: [facility] [place] [address] [facility] [address] Performing Lab: [facility] [address] [facility] [address] [facility] CBC AND DIFF (AUTO) MONOCYTES/ 100 LEUKOCYTES IN BLOOD BY AUTOMATED COUNT 9.1 5.1 - 13.7 11/15 Specimen Type: BLOOD No comment entered. Ordering Provider: EVE TORRES Report Released Date/Time: Nov 07, 2023 04:13 PM Reporting Lab: [facility] [place] [address] [facility] [address] Performing Lab: [facility] [place] [facility] [address] [facility] [address] [facility] [place] [facility] CBC AND DIFF (AUTO) EOSINOPHIL S/100 LEUKOCYTES IN BLOOD BY AUTOMATED COUNT 2.8 0.4 - 6.8 11/15 Specimen Type: BLOOD No comment entered. Ordering Provider: EVE TORRES Report Released Date/Time: Nov 07, 2023 04:13 PM Reporting Lab: [facility] [place] [facility] [address] [facility] [address] Performing Lab: [facility] [place] [facility] [address] [facility] [address] [facility] [place] [facility] CBC AND DIFF (AUTO) BASOPHILS/ 100 LEUKOCYTES IN BLOOD BY AUTOMATED COUNT 0.8 0.1 - 2.0 11/15 Specimen Type: BLOOD No comment entered. Ordering Provider: EVE TORRES Report Released Date/Time: Nov 07, 2023 04:13 PM Reporting Lab: [facility] [place] [facility] [address] [facility] [address] Performing Lab: [facility] [place] [facility] [address] [facility] [address] [facility] [place] [facility] CBC AND DIFF (AUTO) NEUTROPHIL S [#/VOLUME] IN BLOOD BY AUTOMATED COUNT 3.87 10*3/uL 2.20 - 7.60 11/15 Specimen Type: BLOOD No comment entered. Ordering Provider: EVE TORRES Report Released Date/Time: Nov 07, 2023 04:13 PM Reporting Lab: [facility] [place] [facility] [address] [facility] [address] Performing Lab: [facility] [place] [facility] [address] [facility] [address] [facility] [place] [facility] CBC AND DIFF (AUTO) LYMPHOCYTE S [#/VOLUME] IN BLOOD BY AUTOMATED COUNT 1.50 10*3/uL 1.00 - 3.20 11/15 Specimen Type: BLOOD No comment entered. Ordering Provider: EVE TORRES Report Released Date/Time: Nov 07, 2023 04:13 PM Reporting Lab: [facility] [place] [address] [facility] [address] Performing Lab: [facility] [place] [facility] [address] [facility] [address] [facility] CBC AND DIFF (AUTO) EOSINOPHIL S [#/VOLUME] IN BLOOD BY AUTOMATED COUNT 0.17 10*3/uL 0.03 - 0.44 11/15 Specimen Type: BLOOD No comment entered. Ordering Provider: EVE TORRES Report Released Date/Time: Nov 07, 2023 04:13 PM Reporting Lab: [facility] [place] [address] [facility] [address] Performing Lab: [facility] [place] [address] [facility] [address] [facility] CBC AND DIFF (AUTO) BASOPHILS [#/VOLUME] IN BLOOD BY AUTOMATED COUNT 0.05 10*3/uL 0.01 - 0.13 11/15 Specimen Type: BLOOD No comment entered. Ordering Provider: EVE TORRES Report Released Date/Time: Nov 07, 2023 04:13 PM Reporting Lab: [facility] [address] [facility] [address] Performing Lab: [facility] [place] [facility] [address] [facility] [address] [facility] CBC AND DIFF (AUTO) IMMATURE GRANULOCYT ES/100 LEUKOCYTES IN BLOOD BY AUTOMATED COUNT 0.3 0.0 - 0.7 11/15 Specimen Type: BLOOD No comment entered. Ordering Provider: EVE TORRES Report Released Date/Time: Nov 07, 2023 04:13 PM Reporting Lab: [facility] [address] [facility] [address] Performing Lab: [facility] [place] [address] [facility] [address] [facility] CBC AND DIFF (AUTO) IMMATURE GRANULOCYT ES [#/VOLUME] IN BLOOD 0.02 10*3/uL 0.00 - 0.06 11/15 Specimen Type: BLOOD No comment entered. Ordering Provider: EVE TORRES Report Released Date/Time: Nov 07, 2023 04:13 PM Reporting Lab: [facility] [place] [facility] [address] [facility] [address] Performing Lab: [facility] [place] [facility] [address] [facility] [address] [facility] [facility] LIPID PANEL FASTING CHOLESTERO L [MASS/VOLU ME] IN SERUM OR PLASMA 173 mg/dL 11/15 Specimen Type: SERUM No comment entered. Ordering Provider: EVE TORRES Report Released Date/Time: Nov 07, 2023 04:13 PM Reporting Lab: [facility] [place] [address] [address] Performing Lab: [facility] [place] [address] [address] [facility] LIPID PANEL FASTING TRIGLYCERI DE [MASS/VOLU ME] IN SERUM OR PLASMA 132 mg/dL 0 - 150 11/15 Specimen Type: SERUM No comment entered. Ordering Provider: EVE TORRES Report Released Date/Time: Nov 07, 2023 04:13 PM Reporting Lab: [facility] [place] [address] [address] Performing Lab[facility] [place] [facility] [address] [facility] [address] [facility] LIPID PANEL FASTING CHOLESTERO L IN LDL [MASS/VOLU ME] IN SERUM OR PLASMA BY CALCULATIO N 98 mg/dL 0 - 129 11/15 Specimen Type: SERUM No comment entered. Ordering Provider: EVE TORRES Report Released Date/Time: Nov 07, 2023 04:13 PM Reporting Lab: [facility] [place] [address] [address] Performing Lab: [facility] [place] [address] [address] [facility] LIPID PANEL FASTING CHOLESTERO L.TOTAL/CH OLESTEROL IN HDL [MASS RATIO] IN SERUM OR PLASMA 3.5 11/15 Specimen Type: SERUM No comment entered. Ordering Provider: EVE TORRES Report Released Date/Time: Nov 07, 2023 04:13 PM Reporting Lab: [facility] [place] [facility] [address] [facility] [address] Performing Lab: [facility] [place] [facility] [address] [facility] [address] [facility] [place] [facility] LIPID PANEL FASTING CHOLESTERO L IN HDL [MASS/VOLU ME] IN SERUM OR PLASMA 49 mg/dL 40 - 60 11/15 Specimen Type: SERUM No comment entered. Ordering Provider: EVE TORRES Report Released Date/Time: Nov 07, 2023 04:13 PM Reporting Lab: [facility] [place] [address] [address] Performing Lab: [facility] [place] [address] [address] [facility] PSA PROSTATE SPECIFIC AG [MASS/VOLU ME] IN SERUM OR PLASMA 0.77 ng/mL 0.00 - 4.00 11/15 Specimen Type: SERUM No comment entered. Ordering Provider: EVE TORRES Report Released Date/Time: Nov 07, 2023 04:13 PM Reporting Lab: [facility] [place] [address] [address] Performing Lab: [facility] [place] [address] [address] [facility] [place] [facility] MAGNESIU M MAGNESIUM [MASS/VOLU ME] IN SERUM OR PLASMA 2.1 mg/dL 1.6 - 2.6 11/15 Specimen Type: SERUM No comment entered. Ordering Provider: EVE TORRES Report Released Date/Time: Nov 07, 2023 04:13 PM Reporting Lab: [facility] [address] Performing Lab: [facility] [place] [facility] [address] [facility] [address] [facility] [place] [facility] URINALYS IS CLEAN CATCH COLOR OF URINE Light-Ye llow 11/15 Specimen Type: URINE Comment: If Glucose = >500 and Ketones are positive, please alert the Physician. Ordering Provider: EVE TORRES Report Released Date/Time: Nov 07, 2023 04:13 PM Reporting Lab: [facility] [place] [facility] [address] [facility] [address] Performing Lab: [facility] [place] [address] [address] [facility] [place] [facility] URINALYS IS CLEAN CATCH APPEARANCE OF URINE Clear 11/15 Specimen Type: URINE Comment: If Glucose = >500 and Ketones are positive, please alert the Physician. Ordering Provider: EVE TORRES Report Released Date/Time: Nov 07, 2023 04:13 PM Reporting Lab: [facility] [place] [facility] [address] [facility] [address] Performing Lab: [facility] [place] [facility] [address] [facility] [address] [facility] [place] [facility] URINALYS IS CLEAN CATCH GLUCOSE [MASS/VOLU ME] IN URINE NEGATIVE mg/dL 11/15 Specimen Type: URINE Comment: If Glucose = >500 and Ketones are positive, please alert the Physician. Ordering Provider: EVE TORRES Report Released Date/Time: Nov 07, 2023 04:13 PM Reporting Lab: [facility] [place] [address] [address] Performing Lab: [facility] [place] [address] [address] [facility] [place] [facility] URINALYS IS CLEAN CATCH KETONES [MASS/VOLU ME] IN URINE BY TEST STRIP NEGATIVE mg/dL 11/15 Specimen Type: URINE Comment: If Glucose = >500 and Ketones are positive, please alert the Physician. Ordering Provider: EVE TORRES Report Released Date/Time: Nov 07, 2023 04:13 PM Reporting Lab: [facility] [place] [facility] [address] [facility] [address] Performing Lab: [facility] [place] [facility] [address] [facility] [address] [facility] URINALYS IS CLEAN CATCH ERYTHROCYT ES [PRESENCE] IN URINE SEDIMENT BY LIGHT MICROSCOPY NEGATIVE mg/dL 11/15 Specimen Type: URINE Comment: If Glucose = >500 and Ketones are positive, please alert the Physician. Ordering Provider: EVE TORRES Report Released Date/Time: Nov 07, 2023 04:13 PM Reporting Lab: [facility] [place] [facility] [address] [facility] [address] Performing Lab: [facility] [place] [facility] [address] [facility] [address] [facility] URINALYS IS CLEAN CATCH PROTEIN [MASS/VOLU ME] IN URINE BY TEST STRIP NEGATIVE mg/dL 11/15 Specimen Type: URINE Comment: If Glucose = >500 and Ketones are positive, please alert the Physician. Ordering Provider: EVE TORRES Report Released Date/Time: Nov 07, 2023 04:13 PM Reporting Lab: [facility] [place] [facility] [address] [facility] [address] Performing Lab: [facility] [place] [facility] [address] [facility] [address] [facility] URINALYS IS CLEAN CATCH NITRITE [PRESENCE] IN URINE NEGATIVE mg/dL 11/15 Specimen Type: URINE Comment: If Glucose = >500 and Ketones are positive, please alert the Physician. Ordering Provider: EVE TORRES Report Released Date/Time: Nov 07, 2023 04:13 PM Reporting Lab: [facility] [place] [facility] [address] [facility] [address] Performing Lab: [facility] [place] [facility] [address] [facility] [address] [facility] URINALYS IS CLEAN CATCH BILIRUBIN. TOTAL [PRESENCE] IN URINE NEGATIVE mg/dL 11/15 Specimen Type: URINE Comment: If Glucose = >500 and Ketones are positive, please alert the Physician. Ordering Provider: VEE TORRES Report Released Date/Time: Nov 07, 2023 04:13 PM Reporting Lab: [facility] [address] Performing Lab: [facility] [address] [facility] URINALYS IS CLEAN CATCH SPECIFIC GRAVITY OF URINE BY REFRACTOME TRY 1.018 1.016 - 1.022 11/15 Specimen Type: URINE Comment: If Glucose = >500 and Ketones are positive, please alert the Physician. Ordering Provider: EVE TORRES Report Released Date/Time: Nov 07, 2023 04:13 PM Reporting Lab: [facility] [address] Performing Lab: [facility] [address] [facility] URINALYS IS CLEAN CATCH PH OF URINE BY TEST STRIP 6.5 5.0 - 9.0 11/15 Specimen Type: URINE Comment: If Glucose = >500 and Ketones are positive, please alert the Physician. Ordering Provider: EVE TORRES Report Released Date/Time: Nov 07, 2023 04:13 PM Reporting Lab: [facility] [address] Performing Lab: [facility] [address] [facility] URINALYS IS CLEAN CATCH UROBILINOG EN [MASS/VOLU ME] IN URINE BY TEST STRIP <2.0mg/d L <2.0 - 2.0 11/15 Specimen Type: URINE Comment: If Glucose = >500 and Ketones are positive, please alert the Physician. Ordering Provider: EVE TORRES Report Released Date/Time: Nov 07, 2023 04:13 PM Reporting Lab: [facility] [place] [facility] [address] [facility] [address] Performing Lab: [facility] [place] [address] [facility] [address] [facility] URINALYS IS CLEAN CATCH LEUKOCYTE ESTERASE [PRESENCE] IN URINE BY TEST STRIP NEGATIVE 11/15 Specimen Type: URINE Comment: If Glucose = >500 and Ketones are positive, please alert the Physician. Ordering Provider: EVE TORRES Report Released Date/Time: Nov 07, 2023 04:13 PM Reporting Lab: [facility] [place] [facility] [address] [facility] [address] Performing Lab: [facility] [place] [facility] [address] [facility] [address] [facility] [place] [facility] Vital Signs Combined list of inpatient and outpatient Vital Signs from Department of Defense and Veterans Affairs, ranging from 12 months to all on record, depending upon the facility. Vital Sign Value Date Comments Source SYSTOLIC BLOOD PRESSURE 134 07/22/20 24 10:12:56 [facility] DIASTOLIC BLOOD PRESSURE 78 024 10:12:56 [facility] PULSE 62 07/22/2024 10:12:56 [facility] SYSTOLIC BLOOD PRESSURE 146 05/18/20 24 13:25:58 [facility] DIASTOLIC BLOOD PRESSURE 88 024 13:25:58 [facility] PULSE OXIMETRY 98 05/18/2024 13:25:58 [facility] WEIGHT 215.2 05/18/2024 13:25:58 [facility] BMI 31 kg/m2 05/18/2024 13:25:58 [facility] PAIN 5 05/18/2024 13:25:58 [facility] HEIGHT 70 05/18/2024 13:25:58 [facility] TEMPERATURE 98.1 05/18/2024 13:25:58 [facility] PULSE 84 05/18/2024 13:25:58 [facility] RESPIRATION 16 05/18/2024 13:25:58 [facility] SYSTOLIC BLOOD PRESSURE 146 04/25/20 24 13:39:19 [facility] DIASTOLIC BLOOD PRESSURE 84 024 13:39:19 [facility] PULSE OXIMETRY 95 04/25/2024 13:39:19 [facility] WEIGHT 219 04/25/2024 13:39:19 [facility] BMI 31 kg/m2 04/25/2024 13:39:19 [facility] PAIN 4 04/25/2024 13:39:19 [facility] TEMPERATURE 98.4 04/25/2024 13:39:19 [facility] PULSE 88 04/25/2024 13:39:19 [facility] RESPIRATION 20 04/25/2024 13:39:19 [facility] SYSTOLIC BLOOD PRESSURE 118 03/25/20 24 15:02:05 [facility] DIASTOLIC BLOOD PRESSURE 78 024 15:02:05 [facility] PULSE OXIMETRY 98 03/25/2024 15:02:05 [facility] WEIGHT 220.4 03/25/2024 15:02:05 [facility] BMI 32 kg/m2 03/25/2024 15:02:05 [facility] PAIN 4 03/25/2024 15:02:05 [facility] HEIGHT 70 03/25/2024 15:02:05 [facility] TEMPERATURE 98.1 03/25/2024 15:02:05 [facility] PULSE 88 03/25/2024 15:02:05 [facility] RESPIRATION 16 03/25/2024 15:02:05 [facility] Encounters Combined list of: 1) Encounters from Department of Veterans Affairs facilities going backup to the last 18 months, not all VA inpatient encounters are included; 2) Encounters from the Department of [facility] facilities going backup to 280 months. Location Location Details Encounter Type Encounter Number Reason For Visit Attending Provider ADM Date DC Date Status Disposition Source [facility] Outpatient Encounter [id number] D 07/15 [facility] En[facility] [id number] D 07/20 [facility]counter [id number] 07/27 [facility]counter [id number] D 08/03 [facility]counter [id number] 08/05 [facility] Encounter [id number] D 08/06 [facility] OFF/OP EST DECEMBER X REQ PHY/QHP [id number] Diagnos is: ICD-10- CM I10 Essenti al (primar y) hyperte nsion MARIBEL WAGNER A 08/18 [facility] Encounter [id number] 08/18 [facility] [id number] 09/02 [facility]counter [id number] 09/10 [facility]counter [id number] 09/22 [facility] Encounter [id number] 09/23 [facility] OFF/OP EST MAY X REQ PHY/QHP [id number] Diagnos is: ICD-10- CM I10 Essenti al (primar y) MARIBEL Hodges 09/29 [facility] Out[facility] En[facility] [id number] 10/02 [facility] Out[facility] Encounter [id number] 10/05 [facility] Out[facility] Encounter [id number] Diagnos is: ICD-10- CM Z02.89 Encount er for other adminis trative examina RAUDEL Baca 10/28 [facility] Out[facility] Encounter [id number] 11/10 [facility] Out[facility] Encounter [id number] 11/10 [facility] OFFICE O/P EST SF 10 MIN [id number] Diagnos is: ICD-10- CM I10 Essenti al (primar y) hyperte LELAND Mcdowell RD D 11/17 [facility] ELECTROCAR DIOGRAM REPORT [id number] Diagnos is: ICD-10- CM Z13.6 Encount er for screeni ng for cardiov ascular disorde rs New NOEL 11/17 [facility] ELECTROCAR DIOGRAM TRACING [id number] Diagnos is: ICD-10- CM I10 Essenti al (primar y) hyperte LELAND Mcdowell RD D 11/17 [facility] Out[facility] Encounter [id number] 11/25 [facility] En[facility] [id number] 12/02 [facility] En[facility] [id number] D 03/04 [facility] Out[facility] Encounter [id number] D 03/07 [facility] Out[facility] Encounter [id number] 03/16 [facility] OFFICE O/P EST SF 10 MIN [id number] Diagnos is: ICD-10- CM I10 Essenti al (primar y) hyperte nsion LELAND TORRES RD D 03/25 [facility] [id number] 03/28 [facility] Encounter [id number] OSMEL BEAVER 04/05 [facility] Out[facility] Encounter [id number] 04/07 [facility] OFF/OP EST MAY X REQ PHY/QHP [id number] Diagnos is: ICD-10- CM I10 Essenti al (primar y) hyperte nsion KHALIF,TI MOTHY E 04/25 [facility] [facility] En[facility] [id number] [facility] Encounter [id number] 05/17 [facility] OFFICE O/P EST LOW 20 MIN [id number] Diagnos is: ICD-10- CM M25.561 Pain in right knee LELAND TORRES RD D 05/18 [facility] Out[facility] Encounter [id number] D 05/18 [facility] Out[facility] Encounter [id number] D 05/19 [facility] Out[facility] Encounter [id number] 1.06/02 [facility] EXTENDED VISUAL FIELD XM [id number] 1. Diagnos is: ICD-10- CM H40.013 Open angle with borderl ine finding s, low risk, bilater WENDY Guardado 06/06 [facility] CMPTR OPHTH IMG OPTIC NERVE [id number] 1. 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, bilater al HOWARDEYAD H B 06/09 [facility] FIT SPECTACLES MULTIFOCAL [id number] Diagnos is: ICD-10- CM Z46.0 Encount er for fit/adj st of spectac les and contact lenses HOWARD,EYAD H B 06/09 [facility] OFF/OP EST MAY X REQ PHY/QHP [id number] Diagnos is: ICD-10- CM I10 Essenti al (primar y) hyperte MARIBEL Spear A 06/20 [facility] Out[facility] Encounter [id number] 06/21 [facility] Out[facility] Encounter [id number] 06/23 [facility] Out[facility] Encounter [id number] 06/30 [facility] Out[facility] Encounter [id number] 07/07 [facility] Out[facility] Encounter [id number] 07/12 [facility] Out[facility] Encounter [id number] 07/14 [facility] HEARING AID REPAIR/MOD IFYING [id number] Diagnos is: ICD-10- CM Z46.1 Encount er for fitting and adjustm ent of hearing aid SENIOR,JACKIE OLE L 07/18 [facility] OFF/OP EST MAY X REQ PHY/QHP [id number] Diagnos is: ICD-10- CM I10 Essenti al (primar y) hyperte MARIBEL Spear 07/22 [facility] Outpatient Encounter [id number] D 07/22 [facility] Out[facility] Encounter [id number] D 08/08 [facility] Out[facility] Encounter [id number] D 08/08 [facility] Out[facility] Encounter [id number] 08/23 [facility] Outpatient Encounter [id number] 09/13 [facility] Out[facility] Encounter [id number] 09/22 [facility] Outpatient Encounter [id number] D 11/01 [facility] Outpatient Encounter [id number] D 11/02 [facility] Outpatient Encounter [id number] 11/24 [facility] Outpatient Encounter [id number] D 11/28 [facility] SPECIAL SUPPLIES PHYS/QHP [id number] Diagnos is: ICD-10- CM J44.9 Chronic obstruc tive pulmona ry disease , unspeci fied JARMOLOWMATHEUS CastilloSOFIYA 11/29 [facility] Outpatient Encounter [id number] 12/01 [facility] Social History Combined list of available smoking, tobacco, and other social history from Department of Defense and Veterans Affairs facilities. Social History Type Response Date Comment Sour e Tobacco smoking status NHIS VA-TOBACCO FORMER USER 11/18/2023 [facility] [place] History of tobacco use VA-TOBACCO QUIT 15 YRS OR MORE 11/18/2023 [facility] History of tobacco use VA-TOBACCO FORMER USER 08/01/2022 [facility] [place] History of tobacco use VA-TOBACCO QUIT 15 YRS OR MORE 2021 [facility] [place] History of tobacco use VA-TOBACCO FORMER USER 07/12/2020 [facility] History of tobacco use VA-TOBACCO NEVER USED 09/23/2019 [facility] History of tobacco use VA-TOBACCO QUIT 15 YRS OR MORE 08/26/2019 [facility] TARANGO [facility] History of tobacco use VA-TOBACCO QUIT 5 TO < 15 YRS 01/07/2019 [facility] TARANGO [facility] History of tobacco use VA-TOBACCO NEVER USED 07/16/2018 [facility] History of tobacco use [facility]ACCO [facility] Plan of Care List of future care activities from Department of Veterans Affairs facilities. Additional future care activities may be listed in the Assessment and Plan section. Date/Time Care Activity Care Activity Detail Facili ty 12/15/2024 AMBULATORY - MEDICINE AMBULATORY - MEDICI NE [facility]
--- OUTSIDE RECORDS SUMMARY | 2024-12-15 08:24 | XMS_ITS | Encounter Summary ---
Author Name [facility] [place] [facility] [place] [facility] [place] Address [address] [place] [address] Care Team Providers Care Rx Specialist Name Role Phone ИРИНА BAILEY Primary Care Provider GILBERT Mercedes Primary Care Provider Unavailabl e Insurance [...] PRESCRIPT ION HDHP Aug 31, 2022 [id number] DADA BARRON PATIENT [facility] 2017 PRIME Aug 31, 2017 [id number] DADA BARRON PATIENT [facility] 2024 PRIME RETIR ED Aug 31, 2024 PRIME RETIRED [id number] DADA BARRON PATIENT [facility] [place] JOY E Aug 31, 2022 [id number] DADA BARRON PATIENT Selected Encounter This section includes the information on record at [place] for the Encounter. Date/Time Encounter Type Encounter Description Reason Provider Source Mar 25, 2024 03:00 PM OFFICE O/P EST SF 10 MIN PRIMARY CARE/MEDICINE ICD-10-CM I10 Essential (primary) hypertension GILBERT TORRES [facility] Encounter Template Text not used by [place] Assessments - Encounter Diagnoses This section includes the primary and secondary diagnoses documented for the Encounter. Date/Time Primary/Secondary Diagnosis Diagnosis Name Provider Source Mar 25, 2024 03:49 PM PRIMARY Essential (primary) hypertension GILBERT TORRES [facility] [place] [facility] Plan of Treatment: Future Appointments (+ 6 months) and Future Tests (+/- 45 days) The Plan of Treatment section includes future care activities for the patient [facility] [place] [facility] This section includes future appointments and future orders which are active, pending or scheduled. Future Appointments This section includes appointments that were scheduled to occur 6 months from the date of the Encounter, up to a maximum of 20 appointments. The data comes from all [place] treatment facilities. Appointment Date/Time Appointment Type Appointme nt Facility Name Mar 28, 2024 09:45 AM AMBULATORY - MEDICINE [facility] [place] [facility] Apr 25, 2024 01:30 PM AMBULATORY - MEDICINE [facility] [place] [facility] May 17, 2024 09:00 AM AMBULATORY - MEDICINE [facility] [place] [facility] May 18, 2024 01:30 PM AMBULATORY - MEDICINE [facility] [place] [facility] Jun 06, 2024 02:00 PM AMBULATORY - MEDICINE [facility] [place] [facility] Jun 09, 2024 10:30 AM AMBULATORY - MEDICINE [facility] [place] [facility] Jun 20, 2024 10:00 AM AMBULATORY - MEDICINE [facility] [place] [facility] Jun 30, 2024 09:45 AM AMBULATORY - MEDICINE [facility] [place] [facility] Jul 12, 2024 09:00 AM AMBULATORY - MEDICINE [facility] [place] [facility] Jul 12, 2024 03:00 PM AMBULATORY - MEDICINE [facility] [place] [facility] Jul 18, 2024 09:30 AM AMBULATORY - REHAB MEDICIN E [facility] [place] [facility] Jul 22, 2024 10:00 AM AMBULATORY - MEDICINE [facility] [place] [facility] Aug 02, 2024 09:30 AM [facility]BUL[facility]ORY - NONE [facility] Active, Pending, and Scheduled Orders This section includes a listing of several types of active, pending, and scheduled orders, including clinic medications orders, diagnostic test orders, procedure orders and consult orders; where the start date of the order is 45 days before the date of the Encounter or 45 days after the date of theEncounter. The data comes from all [place] treatment facilities. Test Date/Time Test Type Test Details Facility Name Mar 04, 2024 09:25 PM Consult Order [facility] Tanker Driver's Choice [facility] Vital Signs: All taken on the encounter date This section contains inpatient and outpatient Vital Signs collected on the date of the Encounter. Date/Time Temperature Pulse Blood Pressure Respiratory Rate SP02 Pain Height Weight Body Mass Index Source Mar 25, 2024 03:02 PM 98.1 88 118/78 16 98 4 70 220.4 32 [facility] Social History: Smoking Status (Most current) and Tobacco Use (All prior to encounter date) This section includes the most current, and the historical, smoking and tobacco- related health factors from the [place] facility where the Encounter took place. Current Smoking Status This section includes the most current smoking, or tobacco-related health factor, from the [place] facility where the Encounter took place. Date/Time Current Smoking Status Comment Facil ity Nov 18, 2023 11:00 AM [facility]BACCO FOR[facility] Tobacco Use History This section includes a history of the smoking, or tobacco-related health factors, that were collected on or before the date of the Encounter. The data comes from the [place] facility where the Encounter took place. Date/Time Smoking Status/Tobacco Use Comment F acility Nov 18, 2023 11:00 AM VA-TOBACCO QUIT 15 YRS OR MORE [facility] [place] [facility] Aug 01, 2022 10:30 AM VA-TOBACCO FORMER USER [facility] [place] [facility] Aug 01, 2022 10:30 AM VA-TOBACCO QUIT 15 YRS OR MORE [facility] 2021 09:56 AM VA-TOBACCO FORMER USER [facility] 2021 09:56 AM DE-TOBACCO QUIT 15 YRS OR MORE [facility] Encounter Notes: All associated encounter notes This section contains the clinical notes associated to the Encounter. Date/Time Encounter Note(s) Provider Source Mar 25, 2024 03:44 PM PHYSICIAN NOTE: LOCAL TITLE: MD NOTE STANDARD TITLE: PHYSICIAN NOTE DATE OF NOTE: MAR 25, 2024@15:44 ENTRY DATE: MAR 25, 2024@15:44:19 AUTHOR: GILBERT TORRES EXP COSIGNER: URGENCY: STATUS: COMPLETED Patient Name: FELIX BARRON VITALS: Patient temperature: 98.1 F [36.7 C] (03/25/2024 15:02) Blood pressure: 118/78 (03/25/2024 15:02) Patient height: 70 in [177.8 cm] (03/25/2024 15:02) Patient weight: 220.4 lb [99.97 kg] (03/25/2024 15:02) Patient BMI: BMI: 31.7 Patient pulse: 88 (03/25/2024 15:02) Patient respiration: 16 (03/25/2024 15:02) Patient Pulse Oximetry: 98% (03/25/2024 15:02) Pain Ratin (03/25/2024 15:02) Active VA Medications: Active Outpatient Medications (including Supplies): Active Outpatient Medications Status 1) ALBUTEROL 90MCG (CFC-F) 200D ORAL INHL INHALE 2 PUFFS ACTIVE BY MOUTH EVERY 4 TO 6 HOURS NEEDED FOR SHORTNESS OF BREATH OR WHEEZING 2) ATORVASTATIN CALCIUM 20MG TAB TAKE ONE-HALF TABLET BY ACTIVE MOUTH AT BEDTIME FOR CHOLESTEROL 3) FLUTICAS 100/SALMETEROL 50 INHL DISK 60 INHALE 1 PUFF ACTIVE BY MOUTH TWICE DAILY - RINSE MOUTH AFTER USE 4) MAGNESIUM OXIDE 420MG TAB TAKE ONE TABLET BY MOUTH ACTIVE ONCE DAILY Pending Outpatient Medications Status 1) METOPROLOL TARTRATE 25MG TAB TAKE ONE-HALF TABLET BY PENDING MOUTH TWICE DAILY FOR BLOOD PRESSURE/HEART Active Non-VA Medications Status 1) Non-VA ATORVASTATIN CALCIUM 20MG TAB 10MG BY MOUTH ACTIVE ONCE DAILY 6 Total Medications Remote Medications: Active Medications from Remote Data ECONAZOLE NITRATE 1% CREAM,TOP Sig: Quantity: 60 Days Supply: 10 Original # of Refills: 0 Rx Expiration: Last filled 10/16/08 at [facility] #[id number] (Active) CODEINE 10MG/GUAIFENESIN 100MG/5ML LIQUID Sig: Quantity: 100 Days Supply: 3 Original # of Refills: 0 Rx Expiration: Last filled 01/22/19 at [facility] #[id number] (Active) ESOMEPRAZOLE MAGNESIUM 40MG CAP,EC Sig: Quantity: 30 Days Supply: 30 Original # of Refills: 5 Rx Expiration: Last filled 11/27/15 at [facility] (Active) METHYLPREDNISOLONE 4MG TAB Sig: Quantity: 21 Days Supply: 6 Original # of Refills: 0 Rx Expiration: Last filled 06/25/18 at [facility] #[id number] (Active) TRIAMCINOLONE ACETONIDE 0.1% CREAM,TOP Sig: Quantity: 80 Days Supply: 30 Original # of Refills: 0 Rx Expiration: Last filled 12/08/09 at [facility] #[id number] (Active) DOXYCYCLINE HYCLATE 100MG CAP,UD Sig: Quantity: 14 Days Supply: 14 Original # of Refills: 0 Rx Expiration: Last filled 11/30/09 at [facility] #[id number] (Active) HYDROCODONE 5MG/ACETAMINOPHEN 325MG TAB Sig: Quantity: 20 Days Supply: 3 Original # of Refills: 0 Rx Expiration: Last filled 06/04/15 at [facility] #[id number] (Active) SUCRALFATE 500MG/5ML SUSP,ORAL Sig: Quantity: 420 Days Supply: 11 Original # of Refills: 0 Rx Expiration: Last filled 11/27/15 at [facility] (Active) ESOMEPRAZOLE MAGNESIUM 40MG CAP,EC Sig: Quantity: 30 Days Supply: 30 Original # of Refills: 5 Rx Expiration: Last filled 11/27/15 at [facility] #[id number] (Active) NAPROXEN 500MG TAB Sig: Quantity: 60 Days Supply: 30 Original # of Refills: 2 Rx Expiration: Last filled 04/11/09 at [facility] #[id number] (Active) TRIAZOLAM 0.25MG TAB Sig: Quantity: 2 Days Supply: 2 Original # of Refills: 0 Rx Expiration: Last filled 05/30/15 at [facility] (Active) FLUOCINOLONE ACETONIDE 0.025% CREAM,TOP Sig: Quantity: 30 Days Supply: 30 Original # of Refills: 1 Rx Expiration: Last filled 01/17/10 at [facility] #[id number] (Active) MELOXICAM 15MG TAB Sig: Quantity: 30 Days Supply: 30 Original # of Refills: 5 Rx Expiration: Last filled 11/27/15 at [facility] (Active) BENZONATATE 100MG CAP Sig: Quantity: 20 Days Supply: 6 Original # of Refills: 0 Rx Expiration: Last filled 01/22/19 at [facility] #[id number] (Active) DICLOFENAC NA 1% GEL,TOP Sig: Quantity: 100 Days Supply: 10 Original # of Refills: 0 Rx Expiration: Last filled 08/06/08 at [facility] #[id number] (Active) OXYCODONE HCL 5MG/ACETAMINOPHEN 325MG TAB Sig: Quantity: 10 Days Supply: 1 Original # of Refills: 0 Rx Expiration: Last filled 12/14/15 at [facility] #[id number] (Active) DICLOFENAC NA 1% GEL,TOP Sig: Quantity: 100 Days Supply: 10 Original # of Refills: 4 Rx Expiration: Last filled 08/20/08 at [facility] #[id number] (Active) CLINDAMYCIN PO4 1% GEL,TOP Sig: Quantity: 60 Days Supply: 30 Original # of Refills: 4 Rx Expiration: Last filled 12/25/09 at [facility] #[id number] (Active) SULFAMETHOXAZOLE 800MG/TRIMETHOPRIM 160MG TAB Sig: Quantity: 14 Days Supply: 7 Original # of Refills: 0 Rx Expiration: Last filled 10/25/09 at [facility] #[id number] (Active) CEPHALEXIN 500MG CAP Sig: Quantity: 14 Days Supply: 7 Original # of Refills: 0 Rx Expiration: Last filled 10/29/09 at [facility] #[id number] (Active) AZITHROMYCIN 250MG TAB Sig: Quantity: 6 Days Supply: 5 Original # of Refills: 0 Rx Expiration: Last filled 12/15/13 at [facility] #[id number] (Active) CLINDAMYCIN PO4 1% GEL,TOP Sig: Quantity: 30 Days Supply: 30 Original # of Refills: 0 Rx Expiration: Last filled 11/16/09 at [facility] #[id number] (Active) AMMONIUM LACTATE 12% LOTION Sig: Quantity: 225 Days Supply: 22 Original # of Refills: 0 Rx Expiration: Last filled 01/11/10 at [facility] #[id number] (Active) IBUPROFEN 600MG TAB Sig: Quantity: 20 Days Supply: 5 Original # of Refills: 0 Rx Expiration: Last filled 05/30/15 at [facility] (Active) ZOLPIDEM TARTRATE 5MG TAB Sig: Quantity: 50 Days Supply: 25 Original # of Refills: 1 Rx Expiration: Last filled 10/12/08 at [facility] #[id number] (Active) BETAMETHASONE DIPROPIONATE 0.05%/CLOTRIMAZOLE 1% CREAM,TOP Sig: Quantity: 45 Days Supply: 7 Original # of Refills: 4 Rx Expiration: Last filled 10/31/08 at [facility] #[id number] (Active) IBUPROFEN 600MG TAB Sig: Quantity: 30 Days Supply: 10 Original # of Refills: 0 Rx Expiration: Last filled 07/26/16 at [facility] #[id number] (Active) ATORVASTATIN CA 10MG TAB Sig: Quantity: 90 Days Supply: 90 Original # of Refills: 3 Rx Expiration: Last filled 11/10/16 at [facility] (Active) TRIAMCINOLONE ACETONIDE 0.1% CREAM,TOP Sig: Quantity: 30 Days Supply: 30 Original # of Refills: 0 Rx Expiration: Last filled 11/16/09 at [facility] #[id number] (Active) CLOBETASOL PROPIONATE 0.05% OINT,TOP Sig: Quantity: 60 Days Supply: 10 Original # of Refills: 1 Rx Expiration: Last filled 11/13/08 at [facility] #[id number] (Active) TRAMADOL HCL 50MG TAB,UD Sig: Quantity: 20 Days Supply: 5 Original # of Refills: 0 Rx Expiration: Last filled 07/26/16 at [facility] #[id number] (Active) KETOCONAZOLE 200MG TAB Sig: Quantity: 7 Days Supply: 7 Original # of Refills: 0 Rx Expiration: Last filled 10/16/08 at [facility] #[id number] (Active) CLOBETASOL PROPIONATE 0.05% OINT,TOP Sig: Quantity: 60 Days Supply: 10 Original # of Refills: 1 Rx Expiration: Last filled 12/02/08 at [facility] #[id number] (Active) METHYLPREDNISOLONE 4MG TAB Sig: Quantity: 21 Days Supply: 21 Original # of Refills: 0 Rx Expiration: Last filled 10/25/09 at [facility] #[id number] (Active) PENICILLIN V K 250MG TAB Sig: Quantity: 28 Days Supply: 7 Original # of Refills: 0 Rx Expiration: Last filled 01/11/10 at [facility] #[id number] (Active) CEPHALEXIN 500MG CAP Sig: Quantity: 28 Days Supply: 7 Original # of Refills: 0 Rx Expiration: Last filled 05/30/15 at [facility] (Active) MELOXICAM 15MG TAB Sig: Quantity: 30 Days Supply: 30 Original # of Refills: 5 Rx Expiration: Last filled 11/27/15 at [facility] #[id number] (Active) SUCRALFATE 500MG/5ML SUSP,ORAL Sig: Quantity: 420 Days Supply: 11 Original # of Refills: 0 Rx Expiration: Last filled 11/27/15 at [facility] #[id number] (Active) 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 It is in the feet and ankles. Chest pain, trouble breathing, fever, chills, cough, trauma or difficulty with ambulation. No history of same. Review of systems No chest pain or dyspnea No abdominal pain No trouble urinating No fever or chills No cough Physical examination Well-developed well-nourished male in no acute distress Coronary no murmur Lungs clear 1+ edema bilaterally Pulses 2/2 Assessment and plan: 1. Edema: Most likely adverse effect from amlodipine. There is no obvious sign of disease oh heart, lungs, kidneys, liver or peripheral vascular disease. Plan: Discontinue amlodipine Start metoprolol 12.5 mg p.o. twice daily Recheck blood pressure nursing clinic 1 month 05-18-2024 primary care follow-up already set up patient declined all vaccines today Medication Reconciliation: Outpatient: Has the patient been taking medications as documented in the EMLR? YES: The patient has been taking medications as documented in the EMLR. Essential Medication List for Review used to complete this medication reconciliation. INCLUDED IN THIS LIST: Alphabetical list of active outpatient prescriptions dispensed from this [place] (local) and dispensed from another [place] or DoD facility (remote) as well as inpatient orders (local, pending and active), local clinic medications, locally documented non-VA medications, and local prescriptions that have or been discontinued in the past 90 days. - All changes in medications, including all non-VA/Herbal/OTC medications were entered into CPRS. - If there were any medications the patient should no longer take, they were discontinued. - The patient/caregiver was instructed to update this list, discard old lists, and take this list to the next appointment, whether with a VA or non-VA provider. BMI>30/>24.99 High Risk: At this visit, the health risks of obesity were reviewed and discussed with the [place], and the benefits of a weight management treatment program, such as [facility]! was discussed and offered to the . After discussing the health risks of being overweight or obese and providing information about available weight management treatment, and offering a referral to [facility] or another weight management treatment program outside the [facility], the patient DECLINES REFERRAL to [facility] or any other weight management treatment program at this time. COVID-19 Immunization: Refused Moderna Monovalent COVID-19 vaccine Immunization: COVID-19 (MODERNA), MRNA, LNP-S, PF, 50 MCG/0.5 ML (AGES 12+ YEARS) Refusal Reason: PATIENT DECISION Patient refuses all immunization(s) in the COVID-19 group Date Documented: 03/25/24 15:48 /presley/ Gilbert Torres MD Staff Physician Signed: 03/25/2024 15:49 GILBERT TORRES [facility] Mar 25, 2024 03:07 PM PREVENTIVE MEDICIN E NURSING NOTE: LOCAL TITLE: CLINICAL REMINDERS/NURSING STANDARD TITLE: PREVENTIVE MEDICINE NURSING NOTE DATE OF NOTE: MAR 25, 2024@15:07 ENTRY DATE: MAR 25, 2024@15:07:51 AUTHOR: MARCO BEAVER EXP COSIGNER: URGENCY: STATUS: COMPLETED (Optional) Whole Health Documentation: What matters the most to you? What motivates you to be healthy? (MAP) Response: to living a long life Advance Directive Screen AD: Patient has an up-to-date Advance Directive at an outside, non-va facility and was asked to forward a copy to his/her clinician. Comment: will bring a copy to this DE /presley/ MARCO BEAVER LPN LPN Signed: 03/25/2024 15:11 MARCO BEAVER [facility]
--- OUTSIDE RECORDS SUMMARY | 2024-12-15 08:24 | XMS_ITS ---
Author Name [facility] Address [address] [place] [address] Care Team Providers Care Registry Rn Name Role Phone ИРИНА BAILEY Primary Care Provider UnavailJERICHO Amado Primary Care Provider Unavailabl e Insurance Providers: [...] PRESCRIPT ION HDHP Aug 31, 2022 THPRX [id number] [phone] DADA BARRON PATIENT [facility] 2018 PRIME Aug 31, 2017 [id number] [id number] [phone] DADA BARRON PATIENT [facility] 2024 PRIME RETIR ED Aug 31, 2024 PRIME RETIRED [phone] DADA BARRON PATIENT [facility] BROSKAR LAUREN JOY E Aug 31, 2022 [id number] [phone] DADA BARRON PATIENT Selected Encounter This section includes the information on record at [place] for the Encounter. Date/Time Encounter Type Encounter Description Reason Provider Source Jul 18, 2024 09:30 AM HEARING AID REPAIR/MODIFYIN G AUDIOLOGY ICD-10-CM Z46.1 Encounter for fitting and adjustment of hearing aid ALFREDO FLOWER Encounter Template Text not used by [place] Assessments - Encounter Diagnoses This section includes the primary and secondary diagnoses documented for the Encounter. Date/Time Primary/Secondary Diagnosis Diagnosis Name Provider Source Jul 18, 2024 09:47 AM PRIMARY Encounter for fitting and adjustment of hearing aid EDWARD CRANDALL [facility] Jul 18, 2024 09:47 AM SECONDARY Sensorineural hearing loss, bilateral EDWARD CRANDALL [facility] Plan of Treatment: Future Appointments (+ 6 months) and Future Tests (+/- 45 days) The Plan of Treatment section includes future care activities for the patient from all [place] treatmentfacilities. This section includes future appointments and future orders which are active, pending or scheduled. Future Appointments This section includes appointments that were scheduled to occur 6 months from the date of the Encounter, up to a maximum of 20 appointments. The data comes from all [place] treatment facilities. Appointment Date/Time Appointment Type Appointme nt Facility Name Jul 22, 2024 10:00 AM AMBULATORY - MEDIC[facility] Aug 02, 2024 09:30 AM AMBULATORY - [facility] Nov 23, 2024 09:15 AM AMBULATORY - MEDICINE [facility] Dec 15, 2024 09:00 AM AMBULATORY - MEDICINE [facility] Lab Results: +/- 30 days of the encounter This section includes the Chemistry and Hematology Lab Results on record with [place] for the patient. Radiology Reports and Pathology Reports are provided separately, in subsequent sections. Lab Results This section contains the Chemistry/Hematology Results that were resulted 30 days before or 30 daysafter the date of the Encounter. Date/Time Source Result Type Result - Unit Interpretation Reference Range Specimen Type Comment Aug 02, 2024 09:42 AM [facility] BASIC METABOLIC PANEL (non-fasting) SERUM Spe cimen Type: SERUM No comment entered. Ordering Provider: JERICHO TORRES Report Released Date/Time: Jun 21, 2024 05:43 PM Reporting Lab: [facility] [address] [facility] [id number] Performing Lab: [facility] [address] [facility] [id number] UREA NITROGEN 21 mg/dL 7-25 GLUCOSE 112 mg/dL H 65-100 SODIUM 137 mmol/L 135-145 POTASSIUM 4.6 mmol/L 3.5-5.0 CHLORIDE 102 mmol/L 100-110 CO2 24 meq/L 20-30 CREATININE, Serum 0.97 mg/dL 0.50-1.40 eGFR(CKD-EPI 2020) 89 mL/min >60 Social History: Smoking Status (Most current) and Tobacco Use (All prior to encounter date) This section includes the most current, and the historical, smoking and tobacco- related health factors from the [place] facility where the Encounter took place. Current Smoking Status This section includes the most current smoking, or tobacco-related health factor, from the [place] facility where the Encounter took place. Date/Time Current Smoking Status Comment Kye francis Nov 18, 2023 11:00 AM VA-TOBACCO FORMER USER [facility] Tobacco Use History This section includes a history of the smoking, or tobacco-related health factors, that were collected on or before the date of the Encounter. The data comes from the [place] facility where the Encounter took place. Date/Time Smoking Status/Tobacco Use Comment F yovani Nov 18, 2023 11:00 AM VA-TOBACCO QUIT 15 YRS OR MORE [facility] Aug 01, 2022 10:30 AM [facility]BACCO [facility] Aug 01, 2022 10:30 AM PR-TOBACCO QUIT 15 YRS OR MORE [facility] 2021 09:56 AM VA-TOBACCO [facility] 2021 09:56 AM PR-TOBACCO QUIT 15 YRS OR MORE [facility] Radiology Reports: +/- 30 days of [...] the Encounter. The data comes from all [place] treatment facilities. Date/Time Radiology Report Provider Source Aug 02, 2024 09:16 AM ULTRASOUND NECK (THYROID,HEAD,SOFT TISSUE): FELIX BARRON [id number] -[id number] M Exm Date: AUG 02, 2024@09:16 Req Phys: JERICHO TORRES Loc: CWM/NO/PACT 2 (Req'g Loc) Img Loc: ULTRASOUND Service: [facility] [place] [address] (Case [id number] COMPLETE) ULTRASOUND NECK (THYROID,HEAD,SOF(US Detailed) CPT:17388 Reason for Study: f/u nodule Clinical History: Report Status: Verified Date Reported: AUG 02, 2024 Date Verified: AUG 02, 2024 Sap Plant Maintenance Consultant E-Sig:/ES/BEN SAUCEDO JR Report: Study: Thyroid ultrasound. Comparison: Thyroid ultrasound from August 06, 2023, August 18, 2022 and August 07, 2022. Findings: The right lobe of the thyroid measures 3.5 cm in long length x 1.4 cm in AP diameter x 1.6 cm in transverse diameter. Volume of 4 cc with no focal nodule or mass. The thyroid isthmus contains a 3 mm cystic nodule equaling TI-RADS 1: Benign. No FNA needed or sonographic followup required.. The left lobe of the thyroid measures 3.7 cm in long length x 1.6 cm in AP diameter x 1.7 cm in transverse diameter. Volume of 5.5 cc, previously 3.7 cc. Again seen is a lower pole 1.3 cm in greatest dimension, previously 1.0 cm in greatest dimension on the 2022 examination and 1.1 cm in greatest dimension on the 2021 examination TI-RADS 4: Highly suspicious. FNA indicated if greater than or equal to 1.5 cm in greatest dimension. Thyroid ultrasound follow-up recommended if greater than 1.0 cm in greatest dimension at 1,2,3, and 5 year intervals from original 2021 examination. No extrathyroidal nodules are identified. Impression: Slight interval growth in size of the lower pole left thyroid lobe nodule, as described above. Normal volume is 7-11 cc/lobe. Volume = L x H x W x 0.52. Differences in technique can preclude direct comparisons. *TI-RADS: Ultrasound based management guidance of thyroid nodules. 0 points: cystic, anechoic, wider than tall, smooth border, comet tail artifact, spongiform. 1 point: mixed cystic and solid, hyperechoic, isoechoic, MACROcalcifications. 2 points: solid, hypoechoic, lobulated or irregular margins, peripheral rim calcifications. 3 points: very hypoechoic, taller than wide, extrathyroidal extension, microcalcifications. TR1 (0 points): Spongiform nodules. cysts. Benign, No FNA. No followup indicated. TR2 (2 points): Not suspicious, No FNA. Followup ultrasound 1, 3, and 5 years. TR3 (3 points): Mildly suspicious. FNA if > 2.5 cm, Follow-up if >1.5 cm. Followup ultrasound 1, 3, and 5 years. TR4 (4 to 6 points): Moderately Suspicious. FNA if >1.5 cm. Follow-up if > 1cm. Followup ultrasound every 1, 2, 3, and 5 years. TR5 (7 points or more): Highly Suspicious. FNA if > 1cm. Follow-up if > 0.5cm. Followup ultrasound every year. Features include solid hypoechoic nodule, solid hypoechoic component of the partially cystic nodule, WITH one or more of the following features: Irregular margins, microcalcifications, taller than wide shape, rim calcifications with small extrusive soft tissue component, evidence of extrathyroidal extension SIGNIFICANT CHANGE: is defined as 20% increase in at least 2 nodule dimensions or a greater than 50% increase in volume. * Reference: ACR Thyroid Imaging, Reporting and Data System (TI-RADS): White Paper of the TI-RADS Committee. Tessler et al., Journal of the [place] [employer] 2017;14:587-595. Primary Diagnostic Code: No immediate attention required Primary Interpreting Staff: BEN SAUCEDO JR, Radiologist (Sap Plant Maintenance Consultant) /BEN PAULINO JR [place] CNTRL [facility] [place] [facility] Encounter Notes: All associated encounter notes This section contains the clinical notes associated to the Encounter. Date/Time Encounter Note(s) Provider Source Jul 18, 2024 07:43 AM AUDIOLOGY NOTE: LOCAL TITLE: AUDIOLOGY HEALTH MOUNTING MACHINE OPERATOR STANDARD TITLE: AUDIOLOGY NOTE DATE OF NOTE: JUL 18, 2024@07:43 ENTRY DATE: JUL 18, 2024@07:43:08 AUTHOR: AVEL CRANDALL COSIGNER: ALFREDO FLOWER URGENCY: STATUS: COMPLETED July 18, 2024 History/Background: was seen for a hearing aid follow up, unaccompanied. The presented today reporting his right hearing aid is not working. [facility] noted about 1 month ago the hearing aids both stopped working. The left one started working again and has been fine ever since. Hearing aids: ReSound ONE 61 Mini HAL-R Serial Numbers: [id number] Battery size: Rechargeable Date Issued: 03/06/2022 Hearing aid check: Right hearing aid was cleaned and checked. Initial sound check confirmed right aid. Replaced right director of home health services and hearing aid started working. Replaced dome and retention line. Biologic check was good. The hearing aid was connect to [facility] to confirm user settings. Plan: [facility] will follow up as needed. /presley/ AVEL CRANDALL Audiology Health Radio News Anchor Signed: 07/18/2024 09:47 /presley/ NICOLASA MANZANARES, [facility]-A STAFF RN MDS COORDINATOR Cosigned: 07/18/2024 09:48 AVEL CRANDALL [facility]L [facility]
--- OUTSIDE RECORDS SUMMARY | 2024-12-15 08:24 | XMS_ITS ---
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 Date/Time Encounter Type Encounter Description Reason Provider Source May 18, 2024 01:30 PM OFFICE O/P EST LOW 20 MIN PRIMARY CARE/MEDICINE ICD-10-CM M25.561 Pain in right knee GILBERT TORRES Zachary Encounter Template Text not used by NE Assessments - Encounter Diagnoses This section includes the primary and secondary diagnoses documented for the Encounter. Date/Time Primary/Secondary Diagnosis Diagnosis Name Provider Source May 18, 2024 02:14 PM PRIMARY Pain in right knee XIMENA FOWLER [facility] [place] [facility] May 18, 2024 02:14 PM SECONDARY Encounter for immunization XIMENA FOWLER [facility] [place] [facility] May 18, 2024 02:14 PM SECONDARY Essential (primary) hypertension XIMENA FOWLER [facility] [place] [facility] Plan of Treatment: Future Appointments (+ 6 months) and Future Tests (+/- 45 days) The Plan of Treatment section includes future care activities for the [facility] This section includes future appointments and future orders which are active, pending or scheduled. Future Appointments This section includes appointments that were scheduled to occur 6 months from the date of the Encounter, up to a maximum of 20 appointments. The data comes from all [place] treatment facilities. Appointment Date/Time Appointment Type Appointme nt Facility Name Jun 06, 2024 02:00 PM AMBULATORY - MEDICINE [facility] [place] [facility] Jun 09, 2024 10:30 AM AMBULATORY - MEDICINE [facility] [place] [facility] Jun 20, 2024 10:00 AM AMBULATORY - MEDICINE [facility] [place] [facility] Jun 30, 2024 09:45 AM AMBULATORY - MEDICINE [facility] [place] [facility] Jul 12, 2024 09:00 AM AMBULATORY - MEDICINE [facility] [place] [facility] Jul 12, 2024 03:00 PM AMBULATORY - MEDICINE [facility] [place] [facility] Jul 18, 2024 09:30 AM AMBULATORY - REHAB MEDICIN E [facility] [place] [facility] Jul 22, 2024 10:00 AM AMBULATORY - MEDICINE [facility] [place] [facility] Aug 02, 2024 09:30 AM AMBULATORY - NONE [facility] [place] [facility] Lab Results: +/- 30 days of the encounter This section includes the Chemistry and Hematology Lab Results on record with NE for the patient. Radiology Reports and Pathology Reports are provided separately, in subsequent sections. Lab Results This section contains the Chemistry/Hematology Results that were resulted 30 days before or 30 daysafter the date of the Encounter. Date/Time Source Result Type Result - Unit Interpretation Reference Range Specimen Type Comment May 18, 2024 12:00 AM [facility] OCCULT BLOOD FIT X1 SCREEN(IN-HOUSE) FECES Sp ecimen Type: FECES No comment entered. Ordering Provider: GILBERT TORRES Report Released Date/Time: May 18, 2024 05:04 PM Reporting Lab: [facility] [address] [facility] [id number] Performing Lab: [address] [address] OCCULT BLOOD (FIT)#1 OF 1 Negative NEG Vital Signs: All taken on the encounter date This section contains inpatient and outpatient Vital Signs collected on the date of the Encounter. Date/Time Temperature Pulse Blood Pressure Respiratory Rate SP02 Pain Height Weight Body Mass Index Source May 18, 2024 01:25 PM 98.1 84 146/88 16 98 5 70 215.2 31 [facility] Immunizations: All administered on the encounter date This section contains immunizations associated to the Encounter. Immunization Series Date Issued Administered By Site Reaction Lot Number [id number] Drug Mud Jack Nozzleman Comment(s) Source INFLUENZA, SPLIT VIRUS, TRIVALENT, PF May 18, 2024 XIMENA FOWLER H RIGHT DELTO ID [id number] FIOROSMITHKLI ZANA Bravo AT [place], [facility] Social History: Smoking Status (Most current) and Tobacco Use (All prior to encounter date) This section includes the most current, and the historical, smoking and tobacco- related health factors from the NE facility where the Encounter took place. Current Smoking Status This section includes the most current smoking, or tobacco-related health factor, from the NE facility where the Encounter took place. Date/Time Current Smoking Status Comment Kye francis Nov 18, 2023 11:00 AM VA-TOBACCO FORMER USER [facility] Tobacco Use History This section includes a history of the smoking, or tobacco-related health factors, that were collected on or before the date of the Encounter. The data comes from the NE facility where the Encounter took place. Date/Time Smoking Status/Tobacco Use Comment F acility Nov 18, 2023 11:00 AM VA-TOBACCO QUIT 15 YRS OR MORE [facility] Aug 01, 2022 10:30 AM VA-TOBACCO FORMER USER [facility] Aug 01, 2022 10:30 AM VA-TOBACCO [facility]IT [facility]RS OR [facility] 2021 09:56 AM [facility] 2021 09:56 AM NE-TOBACCO QUIT 15 YRS OR MORE [facility] Radiology Reports: +/- 30 days of the [...] the Encounter. The data comes from all NE treatment facilities. Date/Time Radiology Report Provider Source May 18, 2024 02:20 PM KNEE 3 VIEWS (RIGHT): FELIX BARRON [id number] -[id number] M Exm Date: MAY 18, 2024@14:20 Req Phys: GILBERT TORRES Pat Loc: CWM/NO/PACT 2 (Req'g Loc) Img Loc: [facility] 1 Service: Unknown [facility] [place] [address] (Case [id number] COMPLETE) KNEE 3 VIEWS (RIGHT) (RAD Detailed) CPT:79195 Reason for Study: sprain, look for fracture Clinical History: Report Status: Verified Date Reported: MAY 18, 2024 Date Verified: MAY 18, 2024 Special Needs Librarian E-Sig:/ES/BEN SAUCEDO JR Report: Study: AP weight-bearing [...] Primary Interpreting Staff: BEN SAUCEDO JR, Radiologist (Special Needs Librarian) /BEN PAULINO JR [facility] Encounter Notes: All associated encounter notes This section contains the clinical notes associated to the Encounter. Date/Time Encounter Note(s) Provider Source May 18, 2024 02:17 PM PREVENTIVE MEDICINE NURSING NOTE: LOCAL TITLE: CLINICAL REMINDERS/NURSING STANDARD TITLE: PREVENTIVE MEDICINE NURSING NOTE DATE OF NOTE: MAY 18, 2024@14:17 ENTRY DATE: MAY 18, 2024@14:17:37 AUTHOR: PEG FOWLER EXP COSIGNER: URGENCY: STATUS: COMPLETED Influenza Immunization: Influenza, Trivalent, Preservative Free (Fluarix-Syringe) Administered: INFLUENZA, SPLIT VIRUS, TRIVALENT, PF Date Administered: May 18, 2024 13:30 Mud Jack Nozzleman: Tinkercad Lot: [id number] Exp Date: Feb 27, 2025 [facility]: [phone] Admin Route/Site: INTRAMUSCULAR/RIGHT DELTOID Dosage: 0.5mL Vaccine Information Statement(s): INFLUENZA(FLU) VACC(INACTIVATED OR RECOMBINANT)VIS Apr 05, 2021 (CYMRO) Order By: Policy Administered By: Peg Fowler The Influenza Vaccine Information Statement (VIS) was reviewed with the patient/caregiver which lists the benefits and risks of the vaccine and the risks of not receiving the Influenza vaccine. The patient/caregiver denied any prior severe reaction to this vaccine or its components or a severe allergic reaction, such as anaphylaxis, to any vaccine or any injectable therapy. The patient/caregiver gave verbal consent to receive the vaccine. /presley/ PEG FOWLER REGISTERED NURSE Signed: 05/18/2024 14:18 PEG FOWLER [facility] [place] [facility] May 18, 2024 02:07 PM PHYSICIAN NOTE: LOCAL TITLE: MD NOTE STANDARD TITLE: PHYSICIAN NOTE DATE OF NOTE: MAY 18, 2024@14:07 ENTRY DATE: MAY 18, 2024@14:08 AUTHOR: GILBERT TORRES EXP COSIGNER: URGENCY: STATUS: COMPLETED Patient Name: FELIX BARRON VITALS: Patient temperature: 98.1 F [36.7 C] (05/18/2024 13:25) Blood pressure: 146/88 (05/18/2024 13:25) Patient height: 70 in [177.8 cm] (05/18/2024 13:25) Patient weight: 215.2 lb [97.61 kg] (05/18/2024 13:25) Patient BMI: BMI: 30.9 Patient pulse: 84 (05/18/2024 13:25) Patient respiration: 16 (05/18/2024 13:25) Patient Pulse Oximetry: 98% (05/18/2024 13:25) Pain Ratin (05/18/2024 13:25) Active VA Medications: Active Outpatient Medications (including [...] DAILY - RINSE MOUTH AFTER USE 4) FLUTICAS 250/SALMETEROL 50 INHL DISK 60 INHALE 1 PUFF ACTIVE BY MOUTH EVERY 12 HOURS - RINSE MOUTH AFTER USE 5) MAGNESIUM OXIDE 420MG TAB TAKE ONE TABLET BY MOUTH ACTIVE ONCE DAILY Pending Outpatient Medications Status 1) METOPROLOL TARTRATE 50MG TAB TAKE ONE TABLET BY MOUTH PENDING TWICE DAILY FOR BLOOD PRESSURE/HEART Active Non-VA Medications Status 1) Non-VA ATORVASTATIN CALCIUM 20MG TAB 10MG BY MOUTH ACTIVE ONCE DAILY 7 Total Medications Remote Medications: Active Medications from Remote Data ECONAZOLE NITRATE 1% CREAM,TOP Sig: Quantity: 60 Days Supply: 10 Original # of Refills: 0 Rx Expiration: Last filled 10/16/08 at [facility] #[id number] (Active) CODEINE 10MG/GUAIFENESIN 100MG/5ML LIQUID Sig: Quantity: 100 Days Supply: 3 Original # of Refills: 0 Rx Expiration: Last filled 01/22/19 at [facility] #[id number] (Active) ESOMEPRAZOLE MAGNESIUM 40MG CAP,EC Sig: Quantity: 30 Days Supply: 30 Original # of Refills: 5 Rx Expiration: Last filled 11/27/15 at [facility] (Active) METHYLPREDNISOLONE 4MG TAB Sig: Quantity: 21 Days Supply: 6 Original # of Refills: 0 Rx Expiration: Last filled 06/25/18 at [facility] #[id number] (Active) TRIAMCINOLONE ACETONIDE 0.1% CREAM,TOP Sig: Quantity: 80 Days Supply: 30 Original # of Refills: 0 Rx Expiration: Last filled 12/08/09 at [facility] #[id number] (Active) DOXYCYCLINE HYCLATE 100MG CAP,UD Sig: Quantity: 14 Days Supply: 14 Original # of Refills: 0 Rx Expiration: Last filled 11/30/09 at [facility] #[id number] (Active) HYDROCODONE 5MG/ACETAMINOPHEN 325MG TAB Sig: Quantity: 20 Days Supply: 3 Original # of Refills: 0 Rx Expiration: Last filled 06/04/15 at [facility] #[id number] (Active) SUCRALFATE 500MG/5ML SUSP,ORAL Sig: Quantity: 420 Days Supply: 11 Original # of Refills: 0 Rx Expiration: Last filled 11/27/15 at [facility] (Active) ESOMEPRAZOLE MAGNESIUM 40MG CAP,EC Sig: Quantity: 30 Days Supply: 30 Original # of Refills: 5 Rx Expiration: Last filled 11/27/15 at [facility] #[id number] (Active) NAPROXEN 500MG TAB Sig: Quantity: 60 Days Supply: 30 Original # of Refills: 2 Rx Expiration: Last filled 04/11/09 at [facility] #[id number] (Active) TRIAZOLAM 0.25MG TAB Sig: Quantity: 2 Days Supply: 2 Original # of Refills: 0 Rx Expiration: Last filled 05/30/15 at [facility] (Active) FLUOCINOLONE ACETONIDE 0.025% CREAM,TOP Sig: Quantity: 30 Days Supply: 30 Original # of Refills: 1 Rx Expiration: Last filled 01/17/10 at [facility] #[id number] (Active) MELOXICAM 15MG TAB Sig: Quantity: 30 Days Supply: 30 Original # of Refills: 5 Rx Expiration: Last filled 11/27/15 at [facility] (Active) BENZONATATE 100MG CAP Sig: Quantity: 20 Days Supply: 6 Original # of Refills: 0 Rx Expiration: Last filled 01/22/19 at [facility] #[id number] (Active) DICLOFENAC NA 1% GEL,TOP Sig: Quantity: 100 Days Supply: 10 Original # of Refills: 0 Rx Expiration: Last filled 08/06/08 at [facility] #[id number] (Active) OXYCODONE HCL 5MG/ACETAMINOPHEN 325MG TAB Sig: Quantity: 10 Days Supply: 1 Original # of Refills: 0 Rx Expiration: Last filled 12/14/15 at [facility] #[id number] (Active) DICLOFENAC NA 1% GEL,TOP Sig: Quantity: 100 Days Supply: 10 Original # of Refills: 4 Rx Expiration: Last filled 08/20/08 at [facility] #[id number] (Active) CLINDAMYCIN PO4 1% GEL,TOP Sig: Quantity: 60 Days Supply: 30 Original # of Refills: 4 Rx Expiration: Last filled 12/25/09 at [facility] #[id number] (Active) SULFAMETHOXAZOLE 800MG/TRIMETHOPRIM 160MG TAB Sig: Quantity: 14 Days Supply: 7 Original # of Refills: 0 Rx Expiration: Last filled 10/25/09 at [facility] #[id number] (Active) CEPHALEXIN 500MG CAP Sig: Quantity: 14 Days Supply: 7 Original # of Refills: 0 Rx Expiration: Last filled 10/29/09 at [facility] #[id number] (Active) AZITHROMYCIN 250MG TAB Sig: Quantity: 6 Days Supply: 5 Original # of Refills: 0 Rx Expiration: Last filled 12/15/13 at [facility] #[id number] (Active) CLINDAMYCIN PO4 1% GEL,TOP Sig: Quantity: 30 Days Supply: 30 Original # of Refills: 0 Rx Expiration: Last filled 11/16/09 at [facility] #[id number] (Active) AMMONIUM LACTATE 12% LOTION Sig: Quantity: 225 Days Supply: 22 Original # of Refills: 0 Rx Expiration: Last filled 01/11/10 at [facility] #[id number] (Active) IBUPROFEN 600MG TAB Sig: Quantity: 20 Days Supply: 5 Original # of Refills: 0 Rx Expiration: Last filled 05/30/15 at [facility] (Active) ZOLPIDEM TARTRATE 5MG TAB Sig: Quantity: 50 Days Supply: 25 Original # of Refills: 1 Rx Expiration: Last filled 10/12/08 at [facility] #[id number] (Active) BETAMETHASONE DIPROPIONATE 0.05%/CLOTRIMAZOLE 1% CREAM,TOP Sig: Quantity: 45 Days Supply: 7 Original # of Refills: 4 Rx Expiration: Last filled 10/31/08 at [facility] #[id number] (Active) IBUPROFEN 600MG TAB Sig: Quantity: 30 Days Supply: 10 Original # of Refills: 0 Rx Expiration: Last filled 07/26/16 at [facility] #[id number] (Active) ATORVASTATIN CA 10MG TAB Sig: Quantity: 90 Days Supply: 90 Original # of Refills: 3 Rx Expiration: Last filled 11/10/16 at [facility] (Active) TRIAMCINOLONE ACETONIDE 0.1% CREAM,TOP Sig: Quantity: 30 Days Supply: 30 Original # of Refills: 0 Rx Expiration: Last filled 11/16/09 at [facility] #[id number] (Active) CLOBETASOL PROPIONATE 0.05% OINT,TOP Sig: Quantity: 60 Days Supply: 10 Original # of Refills: 1 Rx Expiration: Last filled 11/13/08 at [facility] #[id number] (Active) TRAMADOL HCL 50MG TAB,UD Sig: Quantity: 20 Days Supply: 5 Original # of Refills: 0 Rx Expiration: Last filled 07/26/16 at [facility] #[id number] (Active) KETOCONAZOLE 200MG TAB Sig: Quantity: 7 Days Supply: 7 Original # of Refills: 0 Rx Expiration: Last filled 10/16/08 at [facility] #[id number] (Active) CLOBETASOL PROPIONATE 0.05% OINT,TOP Sig: Quantity: 60 Days Supply: 10 Original # of Refills: 1 Rx Expiration: Last filled 12/02/08 at [facility] #[id number] (Active) METHYLPREDNISOLONE 4MG TAB Sig: Quantity: 21 Days Supply: 21 Original # of Refills: 0 Rx Expiration: Last filled 10/25/09 at [facility] #[id number] (Active) PENICILLIN V K 250MG TAB Sig: Quantity: 28 Days Supply: 7 Original # of Refills: 0 Rx Expiration: Last filled 01/11/10 at [facility] #[id number] (Active) CEPHALEXIN 500MG CAP Sig: Quantity: 28 Days Supply: 7 Original # of Refills: 0 Rx Expiration: Last filled 05/30/15 at [facility] (Active) MELOXICAM 15MG TAB Sig: Quantity: 30 Days Supply: 30 Original # of Refills: 5 Rx Expiration: Last filled 11/27/15 at [facility] #[id number] (Active) SUCRALFATE 500MG/5ML SUSP,ORAL Sig: Quantity: 420 Days Supply: 11 Original # of Refills: 0 Rx Expiration: Last filled 11/27/15 at [facility] #[id number] (Active) box builder note Chief complaint: Sprain right knee History of present illness Twisted knee a few weeks ago at home. Complains of moderate discomfort inferior aspect right knee without radiation. No numbness, weakness, fever, bleeding or difficulty with ambulation. History of knee surgery x 2. Giving himself physical therapy at home Review of systems Deliberate weight loss over the past several months Physical examination: Well developed well nourished in no apparent distress Vitals as above Heart: rrr, no m/r/g Lungs: clear to ausculatation Abdomen: soft, +bs, nontender, nondistended, no masses or guarding Extremities: no edema, no cyanosis or clubbing Neurologic: alert, normal gait, normal senory and motor, EOMI, PERRLA, conjunctiva and sclera normal Psychiatric: answers questions appropriately, normal/coherent speech HEENT: mucious membranes moist Ears and pharynx: no erythema, tympanic membranes normal Neck: supple Urogenital: normal external male, no masses Rectal: no masses Skin: warm, dry, no lesions Assessment and plan: 1. Sprain right knee: No acute neurologic deficit Plan: X-ray to look for stress fracture Patient declined physical therapy 2. Hypertension: Blood pressure poorly controlled on metoprolol 25 mg twice daily Plan: Increase metoprolol to 50 mg twice daily Nursing appointment 1 month to recheck blood pressure Colon cancer screening. Colonoscopy 2014 normal. No personal or family history of cancer or polyps. Does not meet VA criteria for colonoscopy because he is of average risk. Plan: Stool for FIT testing today Follow-up 1 year Medication Reconciliation: Outpatient: Has the patient been taking medications as documented in the EMLR? YES: The patient has been taking medications as documented in the EMLR. Essential Medication List for Review used to complete this medication reconciliation. INCLUDED IN THIS LIST: Alphabetical list of active outpatient prescriptions dispensed from this NE (local) and dispensed from another NE or DoD facility (remote) as well as [...] whether with a VA or non-VA provider. COVID-19 Immunization: Defer due to a PRECAUTION Reason: covid infection last week // Gilbert Torres MD Staff Physician Signed: 05/18/2024 14:13 GILBERT TORRES [facility]
--- OUTSIDE RECORDS SUMMARY | 2024-12-15 08:24 | XMS_ITS ---
Author Name [facility] [place] Address [address] [place] [address] Care Team Providers Care Or First Assist Registered Nurse Name Role Phone ИРИНА BAILEY Primary Care Provider JERICHO Mercedes Primary Care Provider Unavailflako e Insurance Providers: All historical and current [...] PRESCRIPT ION HDHP Aug 31, 2022 THPRX [id number] [phone] DADA BARRON PATIENT [facility] 2018 PRIME Aug 31, 2017 [id number] [phone] DADA BARRON PATIENT [facility] 2024 PRIME RETIR ED Aug 31, 2024 PRIME RETIRED [id number] [phone] DADA BARRON PATIENT [facility] HEALTH PLAN BROSKAR TON JOY E Aug 31, 2022 [id number] [phone] DADA BARRON PATIENT Selected Encounter This section includes the information on record at [place] for the Encounter. Date/Time Encounter Type Encounter Description Reason Provider Source Jun 06, 2024 02:00 PM EXTENDED VISUAL FIELD XM OPTOMETRY ICD-10-CM H40.013 Open angle with borderline findings, low risk, bilateral ERI MCDONNELL Zachary Encounter Template Text not used by [facility] Assessments - Encounter Diagnoses This section includes the primary and secondary diagnoses documented for the Encounter. Date/Time Primary/Secondary Diagnosis Diagnosis Name Provider Source Jun 06, 2024 02:33 PM PRIMARY Open angle with borderline findings, low risk, bilateral ERI MCDONNELL [place] [facility] [place] [facility] Plan of Treatment: Future Appointments (+ 6 months) and Future Tests (+/- 45 days) The Plan of Treatment section includes future care activities for the patient from all [place] [facility] This section includes future appointments and future orders which are active, pending or scheduled. Future Appointments This section includes appointments that were scheduled to occur 6 months from the date of the Encounter, up to a maximum of 20 appointments. The data comes from all [place] treatment facilities. Appointment Date/Time Appointment Type Appointme nt Facility Name Jun 09, 2024 10:30 AM AMBULATORY - MEDICINE [place] [facility] [place] [facility] Jun 20, 2024 10:00 AM AMBULATORY - MEDICINE [place] [facility] [place] [facility] Jun 30, 2024 09:45 AM AMBULATORY - MEDICINE [place] [facility] [place] [facility] Jul 12, 2024 09:00 AM AMBULATORY - MEDICINE [place] [facility] [place] [facility] Jul 12, 2024 03:00 PM AMBULATORY - MEDICINE [place] [facility] [place] [facility] Jul 18, 2024 09:30 AM AMBULATORY - REHAB MEDICIN E [place] [facility] [place] [facility] Jul 22, 2024 10:00 AM AMBULATORY - MEDICINE [place] [facility] [place] [facility] Aug 02, 2024 09:30 AM AMBULATORY - NONE [place] [facility] [place] [facility] Nov 23, 2024 09:15 AM AMBULATORY - MEDICINE [place] [facility] [place] [facility] Lab Results: +/- 30 days of the encounter This section includes the Chemistry and Hematology Lab Results on record with [place] for the patient. Radiology Reports and Pathology Reports are provided separately, in subsequent sections. Lab Results This section contains the Chemistry/Hematology Results that were resulted 30 days before or 30 daysafter the date of the Encounter. Date/Time Source Result Type Result - Unit Interpretation Reference Range Specimen Type Comment May 18, 2024 12:00 AM [facility] OCCULT BLOOD FIT X1 SCREEN(IN-HOUSE) FECES Sp ecimen Type: FECES No comment entered. Ordering Provider: JERICHO TORRES Report Released Date/Time: May 18, 2024 05:04 PM Reporting Lab: [facility] [address] [address] Performing Lab: [address] [address] OCCULT BLOOD (FIT)#1 OF 1 Negative NEG Social History: Smoking Status (Most current) and Tobacco Use (All prior to encounter date) This section includes the most current, and the historical, smoking and tobacco- related health factors from the [place] facility where the Encounter took place. Current Smoking Status This section includes the most current smoking, or tobacco-related health factor, from the [place] facility where the Encounter took place. Date/Time Current Smoking Status Comment Kye ity Nov 18, 2023 11:00 AM [place]-TOBACCO FORMER USER [facility] Tobacco Use History This section includes a history of the smoking, or tobacco-related health factors, that were collected on or before the date of the Encounter. The data comes from the [place] facility where the Encounter took place. Date/Time Smoking Status/Tobacco Use Comment F acility Nov 18, 2023 11:00 AM [place]-TOBACCO QUIT [facility] YRS OR [facility] [place] [facility] Aug 01, 2022 10:30 AM [place]-TOBACCO FOR[facility] [place] [facility] Aug 01, 2022 10:30 AM [place]-TOBACCO QUIT 15 YRS OR MORE [facility] [place] [facility] 2021 09:56 AM VA-TOBACCO FOR[facility]ER [facility] [place] [facility] 2021 09:56 AM [place]-TOBACCO QUIT 15 YRS OR [facility] Radiology Reports: +/- 30 days of [...] the Encounter. The data comes from all [place] treatment facilities. Date/Time Radiology Report Provider Source May 18, 2024 02:20 PM KNEE 3 VIEWS (RIGHT): FELIX BARRON [id number] -[id number] M Exm Date: MAY 18, 2024@14:20 Req Phys: JERICHO TORRES Loc: CWM/NO/PACT 2 (Req'g Loc) Img Loc: [facility] 1 Service: [place] [address] (Case 181 COMPLETE) KNEE 3 VIEWS (RIGHT) (RAD Detailed) CPT:37971 Reason for Study: sprain, look for fracture Clinical History: Report Status: Verified Date Reported: MAY 18, 2024 Date Verified: MAY 18, 2024 Food Analyst E-Sig:/ES/BEN SAUCEDO JR Report: Study: AP weight-bearing [...] Primary Interpreting Staff: BEN SAUCEDO JR, Radiologist (Food Analyst) /BEN PAULINO JR [facility] Encounter Notes: All associated encounter notes This section contains the clinical notes associated to the Encounter. Date/Time Encounter Note(s) Provider Source Jun 06, 2024 01:53 PM OPTOMETRY CONSULT: LOCAL TITLE: CONSULT REPORT/OPTOMETRY/SATHYA (Abdiel) STANDARD TITLE: OPTOMETRY CONSULT DATE OF NOTE: JUN 06, 2024@13:53 ENTRY DATE: JUN 06, 2024@13:53:58 AUTHOR: ERI MCDONNELL COSIGNER: URGENCY: STATUS: COMPLETED Active Problems: Active Problem Pain of right knee M25.561, Onset 0 05/18/2024 JERICHO TORRES Exposure to potentially hazardous s 10/20/2023 TORREY BAXTER COPD - Chronic Obstructive Pulmonar 07/21/2023 JERICHO TORRES Impaired fasting glucose R73.01, On 04/17/2023 JERICHO TORRES Cough R05.9, Onset 08/01/2022 JERICHO TORRES Mass of neck R22.1, Onset 08/01/2022 JERICHO TORRES Migraine G43.909, Onset 06/03/2022 JERICHO TORRES Solitary pulmonary nodule R91.1, On 06/03/2022 JERICHO TORRES Hypercholesterolemia E78.00 2021 MICHAEL ROWELL HTN - Hypertension ([facility] [id number]) I 2021 MICHAEL ROWELL Active Medications (VA): [...] AMLODIPINE S: 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 O: Neuroretinal rim and nerve fiber layer thickness OCT was run by aerospace technician. A: Scans are stable from prior scans with within normal limits neuroretinal rim and nerve fiber layer thickness OU. History of low risk open-angle glaucoma suspect OU. P: Patient will keep optometry follow-up for within the next month. /presley/ ERI MCDONNELL OD STAFF DIRECTOR OF CATERING SALES Signed: 06/06/2024 14:32 ERI MCDONNELL [facility]
--- OUTSIDE RECORDS SUMMARY | 2024-12-15 08:24 | XMS_ITS ---
Author Name [place] Address [address] [place] [address] Care Team Providers Care Char Conveyor Tender Cellar Name Role Phone ИРИНА BAILEY Primary Care Provider UnavailGILBERT Amado Primary Care Provider Unavailabl e Insurance [...] PRESCRIPT ION HDHP Aug 31, 2022 THPRX [id number] [phone] DADA BARRON PATIENT [facility] 2018 PRIME Aug 31, 2017 [id number] [phone] DADA BARRON PATIENT [facility] 2024 PRIME RETIR ED Aug 31, 2024 PRIME RETIRED [id number] [phone] DADA BARRON PATIENT [facility] HEALTH PLAN BROSKAR TON JOY E Aug 31, 2022 [id number] [phone] DADA BARRON PATIENT Selected Encounter This section includes the information on record at [place] for the Encounter. Date/Time Encounter Type Encounter Description Reason Pro vider Source Nov 24, 2024 11:04 AM Outpatient Encounter COMMUNITY CARE CONSULT IHE Encounter Template Text not used by [place] Plan of Treatment: Future Appointments (+ 6 months) and Future Tests (+/- 45 days) The Plan of Treatment section includes future care activities for the patient from all [place] [facility]. This section includes future appointments and future orders which are active, pending or scheduled. Future Appointments This section includes appointments that were scheduled to occur 6 months from the date of the Encounter, up to a maximum of 20 appointments. The data comes from all [place] treatment facilities. Appointment Date/Time Appointment Type Appointme nt Facility Name Dec 15, 2024 09:00 AM AMBULATORY - MEDICINE [facility] May 15, 2025 01:30 PM AMBULATORY - MEDICINE [facility] Active, Pending, and Scheduled Orders This section includes a listing of several types of active, pending, and scheduled orders, including clinic medications orders, diagnostic test orders, procedure orders and consult orders; where the start date of the order is 45 days before the date of the Encounter or 45 days after the date of theEncounter. The data comes from all [facility]. Test Date/Time Test Type Test Details Facility Name Nov 02, 2024 04:12 PM Consult Order COMMUNITY CARE-ORTHO GENERAL Cons Client Resolution Specialist's Choice [facility] Nov 24, 2024 02:11 PM Consult Order COMMUNITY CARE-PULMONARY Cons Client Resolution Specialist's Choice [facility] Social History: Smoking Status (Most current) and Tobacco Use (All prior to encounter date) This section includes the most current, and the historical, smoking and tobacco- related health factors from the [place] facility where the Encounter took place. Current Smoking Status This section includes the most current smoking, or tobacco-related health factor, from the [place] facility where the Encounter took place. Date/Time Current Smoking Status Comment Kye ity Nov 18, 2023 11:00 AM [place]-TOBACCO QUIT 15 YRS OR MORE [facility] Tobacco Use History This section includes a history of the smoking, or tobacco-related health factors, that were collected on or before the date of the Encounter. The data comes from the [place] facility where the Encounter took place. Date/Time Smoking Status/Tobacco Use Comment F acility Nov 18, 2023 11:00 AM VA-TOBACCO QUIT 15 YRS OR MORE [facility] [place] [facility] Aug 01, 2022 10:30 AM VA-TOBACCO FORMER USER [facility] [place] [facility] Aug 01, 2022 10:30 AM VA-TOBACCO QUIT 15 YRS OR MORE [facility] [place] [facility] 2021 09:56 AM VA-TOBACCO FORMER USER VA [facility] [place] [facility] 2021 09:56 AM VA-TOBACCO QUIT 15 YRS OR MORE [facility] [place] [facility] Encounter Notes: All associated encounter notes This section contains the clinical notes associated to the Encounter. Date/Time Encounter Note(s) Provider Source Nov 24, 2024 02:07 PM ADDENDUM: LOCAL TITLE: Addendum STANDARD TITLE: ADDENDUM DATE OF NOTE: NOV 24, 2024@14:07:46 ENTRY DATE: NOV 24, 2024@14:07:47 AUTHOR: CAMILLE LABOY EXP COSIGNER: URGENCY: STATUS: COMPLETED done. please sign if agree. thank you. /presley/ Camille Laboy RN, BSN Primary Care Signed: 11/24/2024 14:08 Receipt Acknowledged By: 11/24/2024 14:12 /es/ Gilbert Torres MD Staff Physician ====== --- Original Document --- 11/24/24 COMMUNITY CARE-REQUEST FOR SERVICE NOTE: Request for Services (RFS) documentation has been sent for scanning to [facility] Community Care Consult: COMMUNITY CARE-PULMONARY [facility] [address] [place] [address] [place] [address] [facility] p [phone] F [phone] Dx: asthma J45.909 appt on 11/23/2024 alert to PACT to enter CC pulmonary consult. Thank you /presley/ COLLETTE LAST Community Care RN Signed: 11/24/2024 11:06 Receipt Acknowledged By: 11/24/2024 14:08 /presley/ Camille Laboy RN, BSN Primary Care 11/24/2024 ADDENDUM STATUS: COMPLETED appt time of 9:15 AM /presley/ COLLETTE LAST [facility] Care RN Signed: 11/24/2024 11:07 11/24/2024 ADDENDUM STATUS: COMPLETED Signed. /presley/ Gilbert Torres MD Staff Physician Signed: 11/24/2024 14:12 CAMILLE LABOY [place] [facility] [place] [facility] Nov 24, 2024 11:04 AM NONVA NOTE: LOCAL TITLE: COMMUNITY CARE-REQUEST FOR SERVICE NOTE STANDARD TITLE: NONVA NOTE DATE OF NOTE: NOV 24, 2024@11:04 ENTRY DATE: NOV 24, 2024@11:04:21 AUTHOR: COLLETTE LAST COSIGNER: URGENCY: STATUS: COMPLETED COMMUNITY CARE-REQUEST FOR SERVICE NOTE Has ADDENDA Request for Services (RFS) documentation has been sent for scanning to [facility] Community Care Consult: COMMUNITY CARE-PULMONARY [facility] [address] [place] [address] [place] [address] [facility] p [phone] F [phone] Dx: asthma J45.909 appt on 11/23/2024 alert to PACT to enter CC pulmonary consult. Thank you /prseley/ COLLETTE LAST [facility] Care RN Signed: 11/24/2024 11:06 Receipt Acknowledged By: 11/24/2024 14:08 /presley/ Camille Laboy RN, BSN Primary Care 11/24/2024 ADDENDUM STATUS: COMPLETED appt time of 9:15 AM /kalani LAST [facility] Care RN Signed: 11/24/2024 11:07 11/24/2024 ADDENDUM STATUS: COMPLETED done. please sign if agree. thank you. /kalani Laboy RN, BSN Primary Care Signed: 11/24/2024 14:08 Receipt Acknowledged By: 11/24/2024 14:12 /presley/ Gilbert Torres MD Staff Physician 11/24/2024 ADDENDUM STATUS: COMPLETED Signed. /presley/ Gilbert Torres MD Staff Physician Signed: 11/24/2024 14:12 [facility]TTE LAST [place] [facility]
--- OUTSIDE RECORDS SUMMARY | 2024-12-15 08:24 | XMS_ITS ---
Author Name [facility] [place] Address [address] [place] [address] Care Team Providers Care Security Systems Engineer Name Role Phone ИРИНА BAILEY Primary Care [...] PRESCRIPT ION HDHP Aug 31, 2022 THPRX [id number] [phone] DADA BARRON PATIENT [facility] 2018 PRIME Aug 31, 2017 [id number] [phone] DADA BARRON PATIENT [facility] 2024 PRIME RETIR ED Aug 31, 2024 PRIME RETIRED [id number] [phone] DADA BARRON PATIENT [facility] HEALTH PLAN BROSKAR LAUREN JOY E Aug 31, 2022 [id number] [phone] DADA BARRON PATIENT Selected Encounter This section includes the information on record at [place] for the Encounter. Date/Time Encounter Type Encounter Description Reason Provider Source Apr 25, 2024 01:30 PM OFF/OP EST MAY X REQ PHY/QHP PRIMARY CARE/MEDICINE ICD-10-CM I10 Essential (primary) hypertension SOHAM CUADRA IHE Encounter Template Text not used by [place] Assessments - Encounter Diagnoses This section includes the primary and secondary diagnoses documented for the Encounter. Date/Time Primary/Secondary Diagnosis Diagnosis Name Provider Source Apr 25, 2024 01:48 PM PRIMARY Essential (primary) hypertension SOHAM CUADRA E [place] [facility] [facility] Plan of Treatment: Future Appointments (+ 6 months) and Future Tests (+/- 45 days) The Plan of Treatment section includes future care activities for the patient from all [place] [facility]. This section includes future appointments and future orders which are active, pending or scheduled. Future Appointments This section includes appointments that were scheduled to occur 6 months from the date of the Encounter, up to a maximum of 20 appointments. The data comes from all [place] treatment facilities. Appointment Date/Time Appointment Type Appointme nt Facility Name May 17, 2024 09:00 AM AMBULATORY - MEDICINE [place] C [facility] [facility] May 18, 2024 01:30 PM AMBULATORY - MEDICINE [place] C [facility] [facility] Jun 06, 2024 02:00 PM AMBULATORY - MEDICINE VA C [facility] [facility] Jun 09, 2024 10:30 AM AMBULATORY - MEDICINE [place] C [facility] [place] [facility] Jun 20, 2024 10:00 AM AMBULATORY - MEDICINE [place] C [facility] [facility] Jun 30, 2024 09:45 AM AMBULATORY - MEDICINE [place] C [facility] [place] [facility] Jul 12, 2024 09:00 AM AMBULATORY - MEDICINE [place] C [facility] [place] [facility] Jul 12, 2024 03:00 PM AMBULATORY - MEDICINE [place] C [facility] [facility] Jul 18, 2024 09:30 AM AMBULATORY - REHAB MEDICIN E [place] [facility] [place] [facility] Jul 22, 2024 10:00 AM AMBULATORY - MEDICINE [place] C [facility] [place] [facility] Aug 02, 2024 09:30 AM AMBULATORY - NONE [place] [facility] [place] [facility] Lab Results: +/- 30 days of the encounter This section includes the Chemistry and Hematology Lab Results on record with [place] for the patient. Radiology Reports and Pathology Reports are provided separately, in subsequent sections. Lab Results This section contains the Chemistry/Hematology Results that were resulted 30 days before or 30 daysafter the date of the Encounter. Date/Time Source Result Type Result - Unit Interpretation Reference Range Specimen Type Comment May 18, 2024 12:00 AM [facility] OCCULT BLOOD FIT X1 SCREEN(IN-HOUSE) FECES Sp ecimen Type: FECES No comment entered. Ordering Provider: JERICHO TORRES Report Released Date/Time: May 18, 2024 05:04 PM Reporting Lab: [address] [address] Performing Lab: [address] [address] OCCULT BLOOD (FIT)#1 OF 1 Negative NEG Vital Signs: All taken on the encounter date This section contains inpatient and outpatient Vital Signs collected on the date of the Encounter. Date/Time Temperature Pulse Blood Pressure Respiratory Rate SP02 Pain Height Weight Body Mass Index Source Apr 25, 2024 01:46 PM 152/80 [facility] [employer] [facility] [employer] [facility] Apr 25, 2024 01:39 PM 98.4 88 146/84 20 95 4 219 31 [facility] Social History: Smoking Status (Most current) and Tobacco Use (All prior to encounter date) This section includes the most current, and the historical, smoking and tobacco- related health factors from the [place] facility where the Encounter took place. Current Smoking Status This section includes the most current smoking, or tobacco-related health factor, from the [place] facility where the Encounter took place. Date/Time Current Smoking Status Comment Facil ity Nov 18, 2023 11:00 AM VA-TOBACCO FORMER USER [facility] Tobacco Use History This section includes a history of the smoking, or tobacco-related health factors, that were collected on or before the date of the Encounter. The data comes from the [place] facility where the Encounter took place. Date/Time Smoking Status/Tobacco Use Comment F acility Nov 18, 2023 11:00 AM [place]-TOBACCO QUIT [facility]RS [facility] Aug 01, 2022 10:30 AM VA-TOBACCO FORMER USER [place] [facility] [facility] Aug 01, 2022 10:30 AM VA-TOBACCO QUIT 15 YRS OR MORE [place] [facility] [place] [facility] 2021 09:56 AM VA-TOBACCO FORMER USER [place] [facility] 2021 09:56 AM VA-TOBACCO QUIT 15 YRS OR MORE [facility] Radiology Reports: +/- 30 days [...] the Encounter. The data comes from all [place] treatment facilities. Date/Time Radiology Report Provider Source May 18, 2024 02:20 PM KNEE 3 VIEWS (RIGHT): FELIX BARRON [id number] -1965 M Exm Date: MAY 18, 2024@14:20 Req Phys: JERICHO TORRES Loc: CWM/NO/PACT 2 (Req'g Loc) [facility] Service: Unknown [facility] [place] [address] (Case 181 COMPLETE) KNEE 3 VIEWS (RIGHT) (RAD Detailed) CPT:77107 Reason for Study: sprain, look for fracture Clinical History: Report Status: Verified Date Reported: MAY 18, 2024 Date Verified: MAY 18, 2024 Inspector [place] E-Sig:/ES/BEN SAUCEDO JR Report: Study: AP weight-bearing [...] Primary Interpreting Staff: BEN SAUCEDO JR, Radiologist (Inspector Ball Points) /BEN PAULINO JR [facility] Encounter Notes: All associated encounter notes This section contains the clinical notes associated to the Encounter. Date/Time Encounter Note(s) Provider Source Apr 25, 2024 01:08 PM [facility]: LOCAL TITLE: AMBULATORY/OUTPATIENT CARE NOTE STANDARD TITLE: PRIMARY CARE OUTPATIENT NOTE DATE OF NOTE: APR 25, 2024@13:08 ENTRY DATE: APR 25, 2024@13:09:08 AUTHOR: DENISSE CUADRA COSIGNER: URGENCY: STATUS: COMPLETED AMBULATORY/OUTPATIENT CARE NOTE Has ADDENDA F: HTN/ BP check D: Vet presented as a walkin requesting a BP check: his auto BP was- 146/84, Manual BP was- 152/80, and his HR was- 88. Here is a list of his current BP meds: 1) METOPROLOL TARTRATE 25MG TAB TAKE ONE-HALF TABLET BY ACTIVE MOUTH TWICE DAILY FOR BLOOD PRESSURE/HEART HTN Assess for Elevated BP>=140/90: Repeat blood pressure: 152/80 The patient was counseled on the importance of regular exercise and/or physical activity in the control of blood pressure. The patient was instructed to try to participate in 120 minutes of aerobic exercise per week if possible and that any increase in physical activity may be useful in controlling blood pressure. The patient was counseled on the importance of diet and weight loss/ control in the regulation of blood pressure. The patient was counseled to reduce their weight to within 10 percent of their ideal body weight. The possible improvement in blood pressure control with even 5 to 10 pounds of weight loss was reviewed. The contribution of dietary sodium to elevated blood pressure was reviewed. The patient was counseled to have a goal sodium intake of 1500mg per day, with no more than 2300mg per day. The patient was counseled that a diet low in dietary saturated and trans fats is beneficial in lowering blood pressure. The patient was counseled that a diet rich in fresh fruits, vegetables and whole grains is beneficial in lowering blood pressure. The patient was counseled to limit alcohol intake to no more than 2 drinks per day for men and 1 drink per day for women. /presley/ DENISSE CUADRA MSN Ed., BSN SCHOOL STANDARDS COACH NURSE Signed: 04/25/2024 13:48 Receipt Acknowledged By: 04/26/2024 18:23 /presley/ Jericho Torres MD Staff Physician 04/26/2024 ADDENDUM STATUS: COMPLETED See telephone note dated today. /presley/ Jericho Torres MD Staff Physician Signed: 04/26/2024 18:23 DENISSE CUADRA [facility]
--- OUTSIDE RECORDS SUMMARY | 2024-12-15 08:24 | XMS_ITS ---
Author Name [facility] [place] [facility] [place] Address [address] [place] [address] Care Team Providers Care Retail Pricing Coordinator Name Role Phone ИРИНА BAILEY Primary Care [...] PRESCRIPT ION HDHP Aug 31, 2022 THPRX [phone] DADA BARRON PATIENT [facility] 2017 PRIME Aug 31, 2017 [id number] [phone] DADA BARRON PATIENT [facility] 2024 PRIME RETIR ED Aug 31, 2024 PRIME RETIRED [id number] [phone] DADA BARRON PATIENT [facility] BROSKAR LAUREN JOY E Aug 31, 2022 [id number] [phone] DADA BARRON PATIENT Selected Encounter This section includes the information on record at [place] for the Encounter. Date/Time Encounter Type Encounter Description Reason Provider Source Jun 09, 2024 10:30 AM COMPRE OPH EXAM EST PT 1/> OPTOMETRY ICD-10-CM 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, bilateral MERHAR,BETO B IHE Encounter Template Text not used by VA Assessments - Encounter Diagnoses This section includes the primary and secondary diagnoses documented for the Encounter. Date/Time Primary/Secondary Diagnosis Diagnosis Name Provider Source Jun 09, 2024 11:20 AM PRIMARY Other disorders of optic disc, bilateral MERHAR,BETO B [facility] Jun 09, 2024 11:20 AM SECONDARY Dry eye syndrome of bilateral lacrimal glands MERHAR,BETO B [facility] [place] [facility] Jun 09, 2024 11:20 AM SECONDARY Keratoconus, stable, bilateral MERHAR,BETO B [facility] [place] [facility] Jun 09, 2024 11:20 AM SECONDARY Regular astigmatism, bilateral MERHAR,BETO B [facility] [place] [facility] Plan of Treatment: Future Appointments (+ 6 months) and Future Tests (+/- 45 days) The Plan of Treatment section includes future care activities for the patient from all [place] treatmentfacilities. This section includes future appointments and future orders which are active, pending or scheduled. Future Appointments This section includes appointments that were scheduled to occur 6 months from the date of the Encounter, up to a maximum of 20 appointments. The data comes from all [place] treatment facilities. Appointment Date/Time Appointment Type Appointme nt Facility Name Jun 20, 2024 10:00 AM AMBULATORY - MEDICINE [facility] [place] [facility] Jun 30, 2024 09:45 AM AMBULATORY - MEDICINE [facility] [place] [facility] Jul 12, 2024 09:00 AM AMBULATORY - MEDICINE [facility] [place] [facility] Jul 12, 2024 03:00 PM AMBULATORY - MEDICINE [facility] [place] [facility] Jul 18, 2024 09:30 AM AMBULATORY - REHAB MEDICIN E [facility] [place] [facility] Jul 22, 2024 10:00 AM AMBULATORY - MEDICINE [facility] [place] [facility] Aug 02, 2024 09:30 AM AMBULATORY - NONE [facility] [place] [facility] Nov 23, 2024 09:15 AM AMBULATORY - MEDICINE [facility] Lab Results: +/- 30 days of the encounter This section includes the Chemistry and Hematology Lab Results on record with [place] for the patient. Radiology Reports and Pathology Reports are provided separately, in subsequent sections. Lab Results This section contains the Chemistry/Hematology Results that were resulted 30 days before or 30 daysafter the date of the Encounter. Date/Time Source Result Type Result - Unit Interpretation Reference Range Specimen Type Comment May 18, 2024 12:00 AM [facility] OCCULT BLOOD FIT X1 SCREEN(IN-HOUSE) FECES Sp ecimen Type: FECES No comment entered. Ordering Provider: JERICHO TORRES Report Released Date/Time: May 18, 2024 05:04 PM Reporting Lab: [facility] [address] [id number] Performing Lab: [address] [id number] OCCULT BLOOD (FIT)#1 OF 1 Negative NEG [...] Kye ity Nov 18, 2023 11:00 AM [place]-TOBACCO FORMER USER [facility] Tobacco Use History This section includes a history of the smoking, or tobacco-related health factors, that were collected on or before the date of the Encounter. The data comes from the [place] facility where the Encounter took place. Date/Time Smoking Status/Tobacco Use Comment F acility Nov 18, 2023 11:00 AM DE-TOBACCO QUIT 15 YRS OR MORE [facility] Aug 01, 2022 10:30 AM VA-TOBACCO FORMER USER [facility] Aug 01, 2022 10:30 AM [place]-TOBACCO QUIT 15 YRS OR MORE [facility] 2021 09:56 AM VA-TOBACCO FORMER USER [facility] 2021 09:56 AM [place]-TOBACCO QUIT 15 YRS OR MORE [facility] Radiology Reports: +/- 30 days [...] the Encounter. The data comes from all [place] treatment facilities. Date/Time Radiology Report Provider Source May 18, 2024 02:20 PM KNEE 3 VIEWS (RIGHT): FELIX BARRON [id number] -1965 M Exm Date: MAY 18, 2024@14:20 Req Phys: JERICHO TORRES Loc: CWM/NO/PACT 2 (Req'g Loc) Img Loc: [facility] 1 Service: [place] [address] (Case [id number] COMPLETE) KNEE 3 VIEWS (RIGHT) (RAD Detailed) CPT:31108 Reason for Study: sprain, look for fracture Clinical History: Report Status: Verified Date Reported: MAY 18, 2024 Date Verified: MAY 18, 2024 Design Transferrer E-Sig:/ES/BEN SAUCEDO JR Report: Study: AP weight-bearing [...] Primary Interpreting Staff: BEN SAUCEDO JR, Radiologist (Design Transferrer) /BEN PAULINO JR [facility] Encounter Notes: All associated encounter notes This section contains the clinical notes associated to the Encounter. Date/Time Encounter Note(s) Provider Source Jun 09, 2024 10:31 AM OPTOMETRY NOTE: LOCAL TITLE: OPTOMETRY NOTE STANDARD TITLE: OPTOMETRY NOTE DATE OF NOTE: JUN 09, 2024@10:31 ENTRY DATE: JUN 09, 2024@10:31:17 AUTHOR: BETO LAWRENCE EXP COSIGNER: URGENCY: STATUS: COMPLETED 58 WHITE MALE NOT OR Last eye exam: 06/01/23 Reason for Visit/CC: patient here for a comprehensive eye exam. Reports no changes in vision. Uses restasis and artificial tears daily for dry eye. 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 low risk open angle glaucoma suspect OU refractive error (-) Pain: (-) GUPTA: (-) Diplopia: (-) Flashes: (-) Floaters: (-) Amaurosis Fugax/Tia's: (-) Eye Injury: (+) Eye Surgery: corneal crosslinking OU 12/2021 (-) TBI (-) FOHx: MHx: Code Description M25.561 Pain of right knee ([facility] [id number]) Z77.29 Exposure to potentially hazardous substance ([facility] [id number]) J44.9 COPD - Chronic Obstructive Pulmonary Disease ([facility] [id number]) R73.01 Impaired fasting glucose ([facility] [id number]) R05.9 Cough ([facility] [id number]) R22.1 Mass of neck ([facility] [id number]) G43.909 Migraine ([facility] [id number]) R91.1 Solitary pulmonary nodule ([facility] [id number]) E78.00 Hypercholesterolemia ([facility] [id number]) I10. HTN - Hypertension ([facility] [id number]) Other: SYSTEMIC MEDICATIONS/OCULAR MEDICATIONS: Active and Recently Outpatient Medications (excluding Supplies): Active Outpatient Medications Status 1) ALBUTEROL [...] MOUTH ACTIVE ONCE DAILY 6 Total Medications ALLERGIES: LISINOPRIL, AMLODIPINE LAST BP: 146/88 (05/18/2024 13:25) PERTINENT LABS: HEMOGLOBIN A1C; BLOOD Steve. Date: 04/14/23 07:37 Test Name Result Units Range HEMOGLOBIN A1C 6.1 H % 4.0 - 5.6 +++++++++++++++++++++++++++++ +++++++++++++++++++++++++++++ +++++++++++++++++++++ Patient history, visual acuity, entrance testing, refraction and tonometry all performed now by cartography technician and reviewed by attending provider. Dilation drops instilled by cartography technician after angle assessment and dilation warning given with verbal consent obtained. +++++++++++++++++++++++++++++ +++++++++++++++++++++++++++++ +++++++++++++++++++++ Final Rx: OD: +6.00 - 4.00 x 066 OS: +4.00 - 4.50 x 106 ADD: +1.75 SLE: Lids/Lashes: mild MGD OU Conjunctiva: white and quiet OU Corneas: clear OU Iris: flat and clear OU (-)TID OU Anterior Chamber: deep and quiet OU Angles: open OU Lens: tr NS OU (-)PXF OU undilated: pt deferred Vitreous: Syneresis OU C/D (Size and Rim Description) OD 0.20 pink & healthy OS 0.45 pink & healthy small discs OU (-)notching/hemorrhage OU Macula OD flat and clear OS flat and clear A/V: normal caliber OU Posterior Pole: clear OU Assessment/Plan: 1. 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 IOP is normotensive and stable OU. RNFL OCT WNL OU with focal defect superior temp OS which is stable. HVF clear OU - OS previously showed somewhat repeatable inferior nasal step. Overall not concerning for glaucoma at this time. Continue to monitor annually. 2. keratoconus OU, stable, s/p corneal crosslinking 12/2021 3. dry eye OU - continue Restasis BID OU and artificial tears prn 4. regular astigmatism OU - order new PALs with transitions and sunwear - reports he always gets both due to his keratoconus RTC 1 year or earlier PRN patient offered and declined printed medication list Medication Reconciliation: Outpatient: Has the patient been taking medications as documented in the EMLR? YES: The patient has been taking medications as documented in the EMLR. Essential Medication List for Review used to complete this medication reconciliation. INCLUDED IN THIS LIST: Alphabetical list of active outpatient prescriptions dispensed from this VA (local) and dispensed from another VA or DoD facility (remote) as well as [...] whether with a VA or non-VA provider. JLV Link Data on this list may not be complete. Please check JLV. Allergies/ADRs (Tool #5) FACILITY ALLERGY/ADR -------- SEBASTIEN DANIELLE [facility] NO KNOWN ALLERGIES [facility] AMLODIPINE [facility] LISINOPRIL [facility] NO KNOWN ALLERGIES Med Recon NoGlocherriary (Tool #1) INCLUDED IN THIS LIST: Alphabetical list of active outpatient prescriptions dispensed from this DE (local) and dispensed from another [place] or [facility] facility (remote) as well as inpatient orders (local pending and active), local clinic medications, locally documented non-VA medications, and local prescriptions that have or been discontinued in the past 90 days. Non-VA Meds Last Documented On: 2021 NOTE The display of VA prescriptions dispensed from another VA or DoD facility (remote) is limited to active outpatient prescription entries matched to National Drug File at the originating site and may not include some items such as investigational drugs, compounds, etc. NOT INCLUDED IN THIS LIST: Medications self-entered by the patient into personal health records (i.e. [employer]) are NOT included in this list. Non-VA medications documented outside this [place], remote inpatient orders (regardless of status) and remote clinic medications are NOT included in this list. The patient and provider must always discuss medications the patient is taking, regardless of where the medication was dispensed or obtained. OUTPT ALBUTEROL [facility] (CFC-F) 200D ORAL INHL (Status = Discontinued) INHALE 2 PUFFS BY MOUTH EVERY 4 TO 6 HOURS NEEDED FOR SHORTNESS OF BREATH OR WHEEZING Rx# [id number] Last Released: 02/18/24 Qty/Days Supply: 09/29 Rx Expiration Date: 09/03/24 Refills Remainin OUTPT ALBUTEROL [facility] (CFC-F) 200D ORAL INHL (Status = Active) INHALE 2 PUFFS BY MOUTH EVERY 4 TO 6 HOURS NEEDED FOR SHORTNESS OF BREATH OR WHEEZING Rx# [id number] Last Released: 05/19/24 Qty/Days Supply: 09/29 Rx Expiration Date: 05/18/25 Refills Remainin OUTPT AMLODIPINE BESYLATE 10MG TAB (Status = Discontinued) TAKE ONE TABLET BY MOUTH ONCE DAILY FOR BLOOD PRESSURE/HEART, DO NOT TAKE WITH GRAPEFRUIT JUICE Rx# [id number] Last Released: 02/18/24 Qty/Days Supply: Rx Expiration Date: 08/18/24 Refills Remainin Indication: FOR HIGH BLOOD PRESSURE Non-VA ATORVASTATIN CALCIUM 20MG TAB TAKE ONE-HALF TABLET BY MOUTH ONCE DAILY Medication prescribed by Non-VA provider. OUTPT ATORVASTATIN CALCIUM 20MG TAB (Status = Active) TAKE ONE-HALF TABLET BY MOUTH AT BEDTIME FOR CHOLESTEROL Rx# [id number] Last Released: 04/18/24 Qty/Days Supply: 45 Rx Expiration Date: 08/03/24 Refills Remainin OUTPT CYCLOSPORINE 0.05% (PF) OPH EMUL 0.4ML (Status = Pending) INSTILL ONE DROP INTO EACH EYE TWICE DAILY Login Date: 06/09/24 Qty/Days Supply: 180/ Refills Ordered: 3 OUTPT FLUTICAS 100/SALMETEROL 50 INHL DISK 60 (Status = Discontinued) INHALE 1 PUFF BY MOUTH TWICE DAILY - RINSE MOUTH AFTER USE Rx# [id number] Last Released: 04/18/24 Qty/Days Supply: 09/29 Rx Expiration Date: 11/11/24 Refills Remainin OUTPT FLUTICAS 250/SALMETEROL 50 INHL DISK 60 (Status = Active) INHALE 1 PUFF BY MOUTH EVERY 12 HOURS - RINSE MOUTH AFTER USE Rx# [id number] Last Released: 05/21/24 Qty/Days Supply: 09/29 Rx Expiration Date: 05/18/25 Refills Remainin OUTPT MAGNESIUM OXIDE 420MG TAB (Status = Active) TAKE ONE TABLET BY MOUTH ONCE DAILY Rx# [id number] Last Released: 03/10/24 Qty/Days Supply: Rx Expiration Date: 07/21/24 Refills Remainin OUTPT METOPROLOL TARTRATE 25MG TAB (Status = Discontinued) TAKE ONE-HALF TABLET BY MOUTH TWICE DAILY FOR BLOOD PRESSURE/HEART Rx# [id number] Last Released: 03/29/24 Qty/Days Supply: Rx Expiration Date: 03/26/25 Refills Remainin Indication: FOR HIGH BLOOD PRESSURE OUTPT METOPROLOL TARTRATE 50MG TAB (Status = Active) TAKE ONE TABLET BY MOUTH TWICE DAILY FOR BLOOD PRESSURE/HEART Rx# [id number] Last Released: 05/19/24 Qty/Days Supply: Rx Expiration Date: 05/19/25 Refills Remainin Indication: FOR HIGH BLOOD PRESSURE SUPPLIES /presley/ BETO LAWRENCE OD Insurance Claim Representative Signed: 06/09/2024 11:20 BEOT LAWRENCE [facility] Jun 09, 2024 09:32 AM OPTOMETRY RN HEMODIALYSIS CHARGE NOTE: LOCAL TITLE: OPTOMETRY RN HEMODIALYSIS CHARGE NOTE STANDARD TITLE: OPTOMETRY RN HEMODIALYSIS CHARGE NOTE DATE OF NOTE: JUN 09, 2024@09:32 ENTRY DATE: JUN 09, 2024@09:32:58 AUTHOR: JOHAN GIBBONS EXP COSIGNER: URGENCY: STATUS: COMPLETED Active problems - Computerized Problem List is the source for the followin. Pain of right knee 2. Exposure to potentially hazardous substance 3. COPD - Chronic Obstructive Pulmonary Disease ([facility] [id number]) 4. Impaired fasting glucose 5. Cough 6. Mass of neck 7. Migraine 8. Solitary pulmonary nodule 9. Hypercholesterolemia 10. HTN - Hypertension ([facility] [id number]) Active Outpatient Medications (including Supplies): Active Outpatient [...] MOUTH ACTIVE ONCE DAILY 6 Total Medications Allergies: LISINOPRIL, AMLODIPINE All medications including those prescribed by outside VA's, community providers, and all OTC meds were reviewed and reconciled with patient to the best of their abilities. This 58 year old MALE is seen today for Complete eye exam Medical, eye, personal, and social history are all reviewed and is contributory or is not contributory to today's visit. Date of last eye exam:Jun 01 2023 Location: [facility] Chief Complaint:Patient here today for a complete eye exam. Patient had done on Jun 06 2024. NO vision complaints states Stable, uses restasis every day and lubricating drops occasionally and does not need refills. NO change in medication or allergies HISTORY AND REVIEW OF SYSTEMS: OHx (+/-)?If Yes, explain: 1. Keratoconus 2. Primary open angle glaucoma suspect OU secondary to assymetric cupping 3. Refractive error OU with presbyopia (-) Pain: (-) GUPTA: (-) Diplopia: (-) Flashes: (-) Floaters: (-) Amaurosis Fugax/Tia's: (-) Eye Injury: (+) Eye Surgery: Corneal cross-linking at [facility] 01/19 (-) TBI FOHx: (-) ARMD/Blindness Glaucoma: Grandmother (-) Smoker/Length of Time/PPD: DIABETIC:NO Last A1C: HEMOGLOBIN A1C PANEL BLOOD (LAV-BLOOD) [facility] #[id number] Collection time: Apr 14, 2023@07:37 HEMOGLOBIN A1C 6.1 H % 4.0 - 5.6 EYE MEDICATION(S): Restasis daily lubricating drops PRN VISION AND REFRACTION: Current Rx with last BCVA: OD:+ 5.50 - 4.00 x 066 20/20 OS: + 4.00 - 4.50 x 106 20/20 Add: + 1.75 PD:60.5 DVA ( )sc (XX)cc OD:20/20 OS:20/20- NV OU:20/20- Manifest Refraction (MRx): OD:+ 6.00 - 4.00 x 066 20/20 OS:+4.00 - 4.50 x 106 20/20 ADD:+2.00 Intraocular Pressure (IOP) Method: Icare Time:10:29am OD:11 OS:11 Pupils: PERRL (-)APD EOMs: SAFE OU,(-)Pain/Diplopia CVF(facial, peripheral): FTFC OU ANTERIOR CHAMBER (AC) Penlight or slit lamp (if available) exam appears unremarkable. Defered dilation today. Visual Imaging Performed Today:None Additional Comments:PAL photochromic and PAL sunglasses. Would like to look at different frames. /presley/ JOHAN GIBBONS [facility] Signed: 06/09/2024 10:35 JOHAN GIBBONS [facility]
== END 2024-12-15 08:09 | disposition home or self-care (01) ==
LOC: HO.HOSX 08:08
PROVIDERS: Visit Provider Orthopaedic Surgery
DX: M25.561 Pain in right knee (principal); M25.562 Pain in left knee; S83.241A Other tear of medial meniscus, current injury, right knee, initial encounter
CPT/HCPCS: 73562; 99202

== ENCOUNTER 2024-12-15 08:47 | Outpatient (AMB) | payer OTHER, SELFPAY ==
[2024-12-15 08:57] VITALS: BMI 31.9
--- NOTE | 2024-12-15 08:57 | A.OFFVIS_ITS ---
Vital Signs 12/15/24 08:57 Height 5 ft 10 in Weight 222 lb BMI 31.9 Intake Visit Reasons: Bilateral knee pain Intake Note: Kvng is a 59 year old male who presents with complaints of bilateral knee pains. The patient has undergone surgery on both of his knees. He states that his most recent right knee surgery was in 2010. His most recent left knee surgery was in 2017. His right knee surgeries involved anterior cruciate ligament repairs. His left knee surgeries involved meniscus repairs. He states that his right knee will give out several times per day. He has had cortisone injections in the past. The most recent injection was done several months ago. He got minimal relief from the injection. He has also tried physical therapy exercises which aggravated his pain. He has failed the last 3 months of conservative treatment which have included a home exercise program, Tylenol and anti-inflammatory medicines. He wishes to hold off on further surgery if at all possible. His knee pains are now interfering with his activities of daily living and his ability to sleep well through the night. Allergies No Known Allergies Allergy (Verified 12/15/24 08:57) Medication List - Last Reconciled 12/15/24 by Jack Lei MD albuterol sulfate 2.5 mg (3 mL) inhalation Q4-6H PRN albuterol sulfate 90 mcg/actuation 2 puffs inhalation Q4-6H PRN atorvastatin 10 mg PO BEDTIME fluticasone propion-salmeterol 250-50 mcg/dose (Wixela Inhub) 1 inh inhalation Q12H losartan 25 mg PO DAILY magnesium oxide 420 mg PO DAILY metoprolol succinate ER 25 mg PO BID PFSH Social History (Updated 12/15/24 @ 09:03 by EMILIA Galaviz) Patient Tobacco Use Status: Former Tobacco user Tobacco use type: Cigarette Cigarette Packs Per Day: 1 Years Smoked: 5 Current occupational status: employed 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, 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 Exam Vital Signs: BMI result Body Mass Index 31.9 Const Other: Well-nourished well-developed very friendly male awake alert and oriented x3 in no acute distress Extrem Other: Right knee examination shows that the surgical incisions are well healed, no erythema, mild crepitus with range of motion, tenderness along his medial joint line, positive Lea's test Left knee examination shows that the surgical incisions are well healed, no erythema, palpable crepitus with range of motion, no joint line tenderness, negative Lea's test Results Reviewed Results Reviewed: X-rays of the patient's right knee show joint space narrowing, subchondral sclerosis, 2 Endobuttons along the distal femur in good position with no signs of loosening, 1 Endobutton within the soft tissues of the distal 3rd anterolateral thigh X-rays of the patient's left knee show joint space narrowing, subchondral sclerosis, no acute bony abnormalities Assessment & Plan Assessment & Plan (1) Tear of medial meniscus of right knee: Code(s): S83.241A - Other tear of medial meniscus, current injury, right knee, initial encounter Category: Medical (2) Pain in both knees: Code(s): M25.561 - Pain in right knee; M25.562 - Pain in left knee Plan Mr. Cosme presents with right knee pain and mechanical symptoms due to early degenerative joint disease as well as possible medial meniscus tearing. Thus, I will send the patient for an MRI of his right knee for further evaluation. I will also see whether or not the patient's insurance company will cover a viscosupplementation injection, such as Durolane, for both of his knees. I will see him back once the injections are available. Feel free to call me at any time should questions regarding his orthopedic management arise. I spent 21 minutes in reviewing the patient's records and imaging studies, seeing the patient and documenting in the medical record. Orders: Orders XR knee RT 3V Today M25.561 - Pain in right knee XR knee LT 3V Today M25.562 - Pain in left knee MR knee RT wo con Today S83.241A - Other tear of medial meniscus, current injury, right knee, initial encounter Coding Level of Care Code New Pt Level 3 (23020) Complex EM visit Add On G2211 Diagnoses Tear of medial meniscus of right knee S83.241A Pain in both knees M25.561; M25.562
--- OUTSIDE RECORDS SUMMARY | 2024-12-15 09:29 | XMS_ITS | Data Portability ---
Author Organization [place] - [facility], Allergy Address [address] [address] Care Team Providers Care Director Selection And Administration Name Role Phone JERICHO TORRES Primary Care Provider Assessment Encounter Date Assessment Date Assessment LastModified by Organization Details LastModified Time 07/12/2024 07/12/2024 59-year-old male presents today for evaluation of left-sided neck mass. He has two nodules in the dermis which are not distinctly palpable, which measured up to 6 mm on the most recent imaging study. Repeat ultrasound in December showed no change. I have been hesitant to recommend surgery given small size and given they are not distinctly palpable. They feel about the same today. There are 2 indistinct nodules over left level 1B. The thickening he feels at the margin of the mandible does not correspond to a node or mass but more likely the margin of the masseter. Follow-up in a year yue Not available 07/13/2024 10:52:26 Plan of Treatment Reminders Order Date Submit Date Provider Last Modified By Organization Details Last Modified Time Details Appointments Establish ed 15 2024 01:30P New NAQVI MD Not available Not available Not available Lab None recorded. Referral None recorded. Procedures None recorded. Surgeries None recorded. Imaging US, neck - attn left level 1B, pleae schedule for June 102023 [id number] [email or web address] [facility], [address] [facility], [facility] [address], [place], [address], 07/12/2024 15:09:15 Medication Orders None recorded. Patient TargetsNo targets recorded. Patient InstructionsNo instructions recorded. Reason for Referral None Reported. Problems Name Problem SNOMED Code Status Onset Date Resolution Date Notes Provider Name and Address Organization Details Recorded Time Mass of neck 231253575 Active 2022 Localized swelling, mass and lump, neck; Note: Date Diagnosed: 09/08/2022 2:30 PM (R22.1) Not Available [facility] 02:43:36 Neck swelling 005856885 Active 2022 Localized swelling, mass and lump, neck; Note: Date Diagnosed: 09/08/2022 2:30 PM (R22.1) Not Available [facility] 02:43:36 Problem Notes None recorded. Medical Equipment None Reported. Allergies No known drug allergies Medications Name Sig Start Date Stop Date Status Note LastModified by Organization Details LastModified Time magnesium oxide 420 mg tablet active Not Available Not Available No t Available atorvasta tin 10 mg tablet active Medicati on ID: [id number] B rand Name: atorvast atin Sen d Method: E-Prescr ibed Sub s Allowed: subs OK Medic ationGen ericName : atorvast atin Not Available Not Available Not Available amlodipin e 2.5 mg tablet 07/12 completed Medicati on ID: [id number] B rand Name: amlodipi ne Send Method: E-Prescr ibed Sub s Allowed: subs OK Medic ationGen ericName : amlodipi ne Not Available Not Available Not Available amlodipin e 10 mg tablet 07/12 completed Not Available Not Available Not Available diclofena c sodium 75 mg tablet,de layed release active Not Available Not Available Not Available fluticaso ne 100 mcg-salme terol 50 mcg/dose blistr powdr for inhalatio n Inhale 1 puff twice a day by inhalati on route. active Not Available Not Available No t Available metoprolo l succinate ER 100 mg capsule sprinkle, ext. release 24 hr Take 1 capsule every day by oral route. active Not Available Not Available No t Available Vitals Date Recorded Body height Body mass index (BMI) Body weight Provider Name and Address Organization Details Last Updated DateTime 07/12/2024 177.8 cm 30.8 kg/m2 52169.36 g Cristela Bosch [place] - [facility] 07/12/2024 14:58:35 Social History None recorded. Functional Status None recorded. Mental Status None recorded. Family History Nothing Reported. Medical History No medical history recorded. Past Encounters Encounter ID Performer Location Encounter Start Date Encounter Closed Date Diagnosis/Indication Diagnosis SNOMED-CT Code Diagnosis ICD10 Code Diagnosis Note [id number] LUKAS NAQVI MD [facility] on [address] [place] [address] 07/12/2024 14:41:03 07/12/2024 15:09:15 Neck swelling 531897727 R22.1 Health Concerns Section Related Observation LastModified by Organization Detai ls LastModified Time None Recorded Concern Status LastModified by Organization Details LastModified Time None Recorded Advance Directives Directive None Recorded Payers Encounter Date Sequence Insurance Name Policy Number Policy Rust Covered Member ID Rust Member ID Guarantor Name 07/12/2024 [employer] [place] [employer] ([facility] Kvng Dickerson [id number] Kvng Dickerson Notes Date Note Type Note Provider Name and Address Organization Details Recorded Time 07/12/2024 text/html 59-year-old male presents today for evaluation of left-sided dermal nodules. He has had these present since at least 2020, and we have been monitoring them for about 2 years without any significant change. LUKAS NAQVI MD [address] [place] [address], [id number], [facility] 07/13/2024 10:52:35
--- OUTSIDE RECORDS SUMMARY | 2024-12-15 09:29 | XMS_ITS | Continuity of Care Document ---
Author Name [facility] Organization [facility] Care Team Providers Care Services Rep Name Role Phone [facility] Unavailable Unavailable Problems Combined list of problems [...] COPD - Chronic Obstructive Pulmonary Disease (SCT 12533670) Active 08/31/19 23 Condition Jul 21, 2023 [...] HCS HTN - Hypertension Active Condition [facility] HTN - Hypertension (SCT 86985653) Active Condition [facility] Hypercholesterolemia Active Condition [facility] [place] Hyperlipidemia Active Condition [facility] Keratoconjunctivitis sicca Active Condition [facility] Keratoconus Active Condition [facility] 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, 2017 Entered By: KENDRA HUBER Comment: left arm w/ lymph node removal [facility] 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 [facility] 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 [facility] Diagnosis: ICD-10-CM J44.9 Chronic obstructive pulmonary disease, [...] for screening for cardiovascular disorders Active Diagnosis [facility] Diagnosis: ICD-10-CM Z02.89 Encounter for other [...] WHEEZING RESPIR ATORY (INHAL ATION) ACTIVE 10/19/2025 [id number] CASSIUS FARAH 2024 1 [facility] ALBUTEROL 90MCG/ACTUA T (CFC-F) INHL,ORAL,8 .5GM DOSE COUNTER INHALE 2 PUFFS BY MOUTH EVERY 4 TO 6 HOURS NEEDED FOR SHORTNES S OF BREATH OR WHEEZING RESPIR ATORY (INHAL ATION) DISCONT INUED 05/18/2025 [id number] 4 CASSIUS FARAH 2023 1 [facility] ALBUTEROL 90MCG/ACTUA T (CFC-F) INHL,ORAL,8 .5GM DOSE COUNTER INHALE 2 PUFFS BY MOUTH EVERY 4 TO 6 HOURS NEEDED FOR SHORTNES S OF BREATH OR WHEEZING RESPIR ATORY (INHAL ATION) DISCONT INUED 09/03/2024 [id number] 4 CASSIUS FARAH 2023 1 [facility] ALBUTEROL SO4 0.083% INHL,3ML INHALE 1 AMPULE IN NEBULIZE R EVERY 4 TO 6 HOURS NEEDED FOR BREATHIN G RESPIR ATORY (INHAL ATION) ACTIVE 02/21/2025 [id number] 5 CASSIUS FARAH 2024 180 [facility] AMLODIPINE BESYLATE 10MG TAB TAKE ONE TABLET BY MOUTH ONCE DAILY FOR BLOOD PRESSURE /HEART, DO NOT TAKE WITH GRAPEFRU IT JUICE ORAL DISCONT INUED BY PROVIDE R 08/18/2024 [id number] 4 KARLA TORRES ZACHARY D 2022 90 [facility] ATORVASTATI N CA 20MG TAB TAKE ONE-HALF TABLET BY MOUTH AT BEDTIME FOR CHOLESTE ROL ORAL ACTIVE 06/24/2025 [id number] KARLA TORRES ZACHARY D 2023 45 [facility] ATORVASTATI N CA 20MG TAB TAKE ONE-HALF TABLET BY MOUTH AT BEDTIME FOR CHOLESTE ROL ORAL DISCONT INUED 08/03/2024 [id number] 4 KARLA TORRES 2022 45 [facility] ATORVASTATI N CA 20MG TAB TAKE ONE-HALF TABLET BY MOUTH ONCE DAILY ORAL ACTIVE CATALINO ROWELL VLOC DOYLE 2020 [facility] CYCLOSPORIN E 0.05% (PF) EMULSION,OP H,0.4ML INSTILL 1 DROP INTO EACH EYE TWICE DAILY FOR DRY EYE OPHTHA LMIC ACTIVE 06/10/2025 [id number] ARTIS LAWRENCE AH B 2023 180 [facility] FLUTICASONE 100MCG/SALM ETEROL 50MCG INHL,ORAL,D ISKUS,60 INHALE 1 PUFF BY MOUTH TWICE DAILY - RINSE MOUTH AFTER USE RESPIR ATORY (INHAL ATION) DISCONT INUED 11/11/2024 [id number] 4 CASSIUS FARAH 2023 1 [facility] FLUTICASONE 100MCG/SALM ETEROL 50MCG INHL,ORAL,D ISKUS,60 INHALE 1 PUFF BY MOUTH TWICE DAILY - RINSE MOUTH AFTER USE RESPIR ATORY (INHAL ATION) DISCONT INUED 09/04/2024 [id number] 4 CASSIUS FARAH 2023 1 [facility] FLUTICASONE 250MCG/SALM ETEROL 50MCG INHL,ORAL,D ISKUS,60 INHALE 1 PUFF BY MOUTH TWICE DAILY - RINSE MOUTH AFTER USE RESPIR ATORY (INHAL ATION) SUSPEND ED 10/19/2025 [id number] 5 CASSIUS FARAH 2024 1 [facility] FLUTICASONE 250MCG/SALM ETEROL 50MCG INHL,ORAL,D ISKUS,60 INHALE 1 PUFF BY MOUTH EVERY 12 HOURS - RINSE MOUTH AFTER USE RESPIR ATORY (INHAL ATION) DISCONT INUED 05/18/2025 [id number] 5 CASSIUS FARAH 2023 1 [facility] [place]AN 25MG TAB TAKE ONE TABLET BY MOUTH ONCE DAILY FOR BLOOD PRESSURE /HEART ORAL ACTIVE 06/22/2025 [id number] 5 KARLA TORRES D 2023 30 [facility] MAGNESIUM OXIDE 420MG TAB TAKE ONE TABLET BY MOUTH ONCE DAILY ORAL ACTIVE 11/02/2025 [id number] 5 KARLA TORRES ZACHARY D 2024 90 [facility] MAGNESIUM OXIDE 420MG TAB TAKE ONE TABLET BY MOUTH ONCE DAILY ORAL DISCONT INUED 07/21/2024 [id number] 4 KARLA TORRES D 2022 90 [facility] METOPROLOL TARTRATE 25MG TAB TAKE ONE-HALF TABLET BY MOUTH TWICE DAILY FOR BLOOD PRESSURE /HEART ORAL DISCONT INUED BY PROVIDE R 03/26/2025 [id number] 4 KARLA TORRES 2023 90 [facility] METOPROLOL TARTRATE 50MG TAB TAKE ONE TABLET BY MOUTH TWICE DAILY FOR BLOOD PRESSURE /HEART ORAL ACTIVE 06/22/2025 [id number] 5 KARLA TORRES D 2023 180 [facility] METOPROLOL TARTRATE 50MG TAB TAKE ONE TABLET BY MOUTH TWICE DAILY FOR BLOOD PRESSURE /HEART ORAL DISCONT INUED (EDIT) 05/19/2025 [id number] 4 KARLA TORRES D 2023 60 [facility] NO KNOWN NON-VA MEDS MISCELLANEO US ACTIVE TYLER BOBO 2019 [facility] PREDNISONE 20MG TAB TAKE TWO TABLETS BY MOUTH ONCE DAILY ORAL ACTIVE 12/23/2024 [id number] 5 CASSIUS FARAH 2024 10 [facility] Allergies, Adverse Reactions, Alerts Combined list of allergies from Department of Defense and Veterans Affairs facilities. It does not include entries that were removed or entered in error. Substance Category Reaction Severity Reaction type Status Date Reported Comments Source AMLODIPINE Propensity to adverse reactions to drug (finding) Edema MILD active 4 [facility] LISINOPRIL Propensity to adverse reactions to drug (finding) Cough MODERATE active 3 [facility] Immunizations Combined list of available immunizations from the Department of [facility] and Veterans Affairs facilities. Immunization Series Date Given Administered By Site Reaction Lot Number CVX Code Drug Acls Nurse Status Comments Source INFLUENZA, SPLIT VIRUS, TRIVALENT, PF 2023 XIMENA TAPIA H RIGHT [place] ID [id number] 140 complet ed [facility] INFLUENZA, INJECTABLE, QUADRIVALENT, PRESERVATIVE FREE 2022 MARIBEL WAGNER LEFT DELTO ID [id number] 150 complet ed Completed Series, [facility] INFLUENZA, INJECTABLE, QUADRIVALENT, PRESERVATIVE FREE 2021 150 complet ed [facility] INFLUENZA, INJECTABLE, QUADRIVALENT, PRESERVATIVE FREE 2020 150 complet ed [facility] COVID-19 (MODERNA), MRNA, LNP-S, PF, 100 MCG/0.5 ML DOSE 2 2020 207 complet ed MOD; [id number]; 1 [facility] COVID-19 (MODERNA), MRNA, LNP-S, PF, 100 MCG OR 50 MCG DOSE 1 2020 207 complet ed [facility] ZOSTER RECOMBINANT 2 2019 187 complet ed [facility] INFLUENZA, INJECTABLE, QUADRIVALENT 2018 158 complet ed [facility] ZOSTER RECOMBINANT 1 2018 187 complet ed [facility] INFLUENZA, TRIVALENT, ADJUVANTED 2018 168 complet ed [facility] TDAP 2015 115 complet ed [facility] Results Combined list [...] Jun 21, 2024 05:43 PM Reporting Lab: [facility] [place] [facility] [address] [facility] [address] Performing Lab: [facility] [place] [facility] [address] [facility] [address] [facility] [place] [facility] BASIC METABOLI C PANEL (non-fas ting) GLUCOSE [MASS/VOLU ME] IN SERUM OR PLASMA 112 mg/dL 65 - 100 08/02 H Specimen Type: SERUM No comment entered. Ordering Provider: EVE TORRES Report Released Date/Time: Jun 21, 2024 05:43 PM Reporting Lab: [facility] [place] [facility] [address] [facility] [address] Performing Lab: [facility] [place] [facility] [address] [facility] [address] [facility] BASIC METABOLI C PANEL (non-fas ting) SODIUM [MOLES/VOL UME] IN SERUM OR PLASMA 137 mmol/L 135 - 145 08/02 Specimen Type: SERUM No comment entered. Ordering Provider: EVE TORRES Report Released Date/Time: Jun 21, 2024 05:43 PM Reporting Lab: [facility] [place] [facility] [address] [facility] [address] Performing Lab: [facility] [place] [facility] [address] [facility] [address] [facility] [place] [facility] BASIC METABOLI C PANEL (non-fas ting) POTASSIUM [MOLES/VOL UME] IN SERUM OR PLASMA 4.6 mmol/L 3.5 - 5.0 08/02 Specimen Type: SERUM No comment entered. Ordering Provider: EVE TORRES Report Released Date/Time: Jun 21, 2024 05:43 PM Reporting Lab: [facility] [address] [address] Performing Lab: [facility] [address] [address] [facility] BASIC METABOLI C PANEL (non-fas ting) CHLORIDE [MOLES/VOL UME] IN SERUM OR PLASMA 102 mmol/L 100 - 110 08/02 Specimen Type: SERUM No comment entered. Ordering Provider: EVE TORRES Report Released Date/Time: Jun 21, 2024 05:43 PM Reporting Lab: [facility]ITAL[facility] [address] Performing Lab: [facility]ITAL[facility] [address] [facility] TRN [facility] BASIC METABOLI C PANEL (non-fas ting) CARBON DIOXIDE, TOTAL [MOLES/VOL UME] IN SERUM OR PLASMA 24 meq/L 20 - 30 08/02 Specimen Type: SERUM No comment entered. Ordering Provider: EVE TORRES Report Released Date/Time: Jun 21, 2024 05:43 PM Reporting Lab: [facility]ITAL[facility] [address] Performing Lab: [facility] [address] [address] [facility] TRN [facility] BASIC METABOLI C PANEL (non-fas ting) CREATININE [MASS/VOLU ME] IN SERUM OR PLASMA 0.97 mg/dL 0.50 - 1.40 08/02 Specimen Type: SERUM No comment entered. Ordering Provider: EVE TORRES Report Released Date/Time: Jun 21, 2024 05:43 PM Reporting Lab: [facility] [address] Performing Lab: [facility] [address] [facility] [address] [facility] BASIC METABOLI C PANEL (non-fas ting) GLOMERULAR FILTRATION RATE/1.73 SQ M.PREDICTE D [VOLUME RATE/AREA] IN SERUM, PLASMA OR BLOOD BY CREATININE -BASED FORMULA (CKD-EPI 2020) 89 mL/min 60 08/02 Specimen Type: SERUM No comment entered. Ordering Provider: EVE TORRES Report Released Date/Time: Jun 21, 2024 05:43 PM Reporting Lab: [address] [address] Performing Lab: [address] [address] [facility] OCCULT BLOOD FIT X1 SCREEN(I N-HOUSE) HEMOGLOBIN .GASTROINT ESTINAL.LO WER [PRESENCE] IN STOOL BY IMMUNOASSA Y Negative 05/18 Specimen Type: FECES No comment entered. Ordering Provider: EVE TORRES Report Released Date/Time: May 18, 2024 05:04 PM Reporting Lab: [address] [address] Performing Lab: [address] [address] [facility] BASIC METABOLI C PANEL (fasting ) UREA NITROGEN [MASS/VOLU ME] IN SERUM OR PLASMA 15 mg/dL 7 - 25 11/15 Specimen Type: SERUM No comment entered. Ordering Provider: EVE TORRES Report Released Date/Time: Nov 07, 2023 04:13 PM Reporting Lab: [address] [address] Performing Lab: [address] [address] [facility] BASIC METABOLI C PANEL (fasting ) GLUCOSE [MASS/VOLU ME] IN SERUM OR PLASMA 151 mg/dL 65 - 100 11/15 H Specimen Type: SERUM No comment entered. Ordering Provider: EVE TORRES Report Released Date/Time: Nov 07, 2023 04:13 PM Reporting Lab: [facility] [place] [facility] [address] [facility] [address] Performing Lab: [facility] [place] [facility] [address] [facility] [address] [facility] [place] [facility] BASIC METABOLI C PANEL (fasting ) SODIUM [MOLES/VOL UME] IN SERUM OR PLASMA 137 mmol/L 135 - 145 11/15 Specimen Type: SERUM No comment entered. Ordering Provider: EVE TORRES Report Released Date/Time: Nov 07, 2023 04:13 PM Reporting Lab: [facility] [place] [facility] [address] [facility] [address] Performing Lab: [facility] [place] [address] [address] [facility] [facility] BASIC METABOLI C PANEL (fasting ) POTASSIUM [MOLES/VOL UME] IN SERUM OR PLASMA 4.3 mmol/L 3.5 - 5.0 11/15 Specimen Type: SERUM No comment entered. Ordering Provider: EVE TORRES Report Released Date/Time: Nov 07, 2023 04:13 PM Reporting Lab: [facility] [place] [address] [address] Performing Lab: [facility] [place] [address] [address] [facility] [place] [facility] BASIC METABOLI C PANEL (fasting ) CHLORIDE [MOLES/VOL UME] IN SERUM OR PLASMA 102 mmol/L 100 - 110 11/15 Specimen Type: SERUM No comment entered. Ordering Provider: EVE TORRES Report Released Date/Time: Nov 07, 2023 04:13 PM Reporting Lab: [facility] [place] [facility] [address] [facility] [address] Performing Lab: [facility] [place] [address] [address] [facility] [place] [facility] BASIC METABOLI C PANEL (fasting ) CARBON DIOXIDE, TOTAL [MOLES/VOL UME] IN SERUM OR PLASMA 26 meq/L 20 - 30 11/15 Specimen Type: SERUM No comment entered. Ordering Provider: EVE TORRES Report Released Date/Time: Nov 07, 2023 04:13 PM Reporting Lab: [facility] [address] [address] Performing Lab: [facility] [address] [address] [facility] BASIC METABOLI C PANEL (fasting ) CREATININE [MASS/VOLU ME] IN SERUM OR PLASMA 0.94 mg/dL 0.50 - 1.40 11/15 Specimen Type: SERUM No comment entered. Ordering Provider: EVE TORRES Report Released Date/Time: Nov 07, 2023 04:13 PM Reporting Lab: [address] [address] Performing Lab: [address] [address] [facility] BASIC METABOLI C PANEL (fasting ) GLOMERULAR FILTRATION RATE/1.73 SQ M.PREDICTE D [VOLUME RATE/AREA] IN SERUM, PLASMA OR BLOOD BY CREATININE -BASED FORMULA (CKD-EPI 2020) >90mL/mi n 60 11/15 Specimen Type: SERUM No comment entered. Ordering Provider: EVE TORRES Report Released Date/Time: Nov 07, 2023 04:13 PM Reporting Lab: [facility] [address] [address] Performing Lab: [facility] [address] [address] [facility] CBC AND DIFF (AUTO) LEUKOCYTES [#/VOLUME] IN BLOOD BY AUTOMATED COUNT 6.17 10*3/uL 4.50 - 11.00 11/15 Specimen Type: BLOOD No comment entered. Ordering Provider: EVE TORRES Report Released Date/Time: Nov 07, 2023 04:13 PM Reporting Lab: [facility] [address] [facility] [address] Performing Lab: [facility] [place] [facility] [address] [facility] [address] [facility] [place] [facility] CBC AND DIFF (AUTO) ERYTHROCYT ES [#/VOLUME] IN BLOOD BY AUTOMATED COUNT 4.84 10*6/uL 4.23 - 5.66 11/15 Specimen Type: BLOOD No comment entered. Ordering Provider: EVE TORRES Report Released Date/Time: Nov 07, 2023 04:13 PM Reporting Lab: [facility] [place] [facility] [address] [facility] [address] Performing Lab: [facility] [place] [facility] [address] [facility] [address] [facility] [place] [facility] CBC AND DIFF (AUTO) HEMOGLOBIN [MASS/VOLU ME] IN BLOOD 14.2 g/dL 12.8 - 17 11/15 Specimen Type: BLOOD No comment entered. Ordering Provider: EVE TORRES Report Released Date/Time: Nov 07, 2023 04:13 PM Reporting Lab: [facility] [place] [facility] [address] [facility] [address] Performing Lab: [facility] [place] [facility] [address] [facility] [address] [facility] [place] [facility] CBC AND DIFF (AUTO) HEMATOCRIT [VOLUME FRACTION] OF BLOOD BY AUTOMATED COUNT 42.6 39.2 - 50.4 11/15 Specimen Type: BLOOD No comment entered. Ordering Provider: EVE TORRES Report Released Date/Time: Nov 07, 2023 04:13 PM Reporting Lab: [facility] [place] [facility] [address] [facility] [address] Performing Lab: [facility] [place] [facility] [address] [facility] [address] [facility] [place] [facility] CBC AND DIFF (AUTO) MCV [ENTITIC VOLUME] BY AUTOMATED COUNT 88.0 fL 82 - 99 11/15 Specimen Type: BLOOD No comment entered. Ordering Provider: EVE TORRES Report Released Date/Time: Nov 07, 2023 04:13 PM Reporting Lab: [facility] [facility] [address] [facility] [address] Performing Lab: [facility] [facility] [address] [facility] [address] [facility] [place] CBC AND DIFF (AUTO) MCHC [MASS/VOLU ME] BY AUTOMATED COUNT 33.3 g/dL 30.8 - 35.1 11/15 Specimen Type: BLOOD No comment entered. Ordering Provider: EVE TORRES Report Released Date/Time: Nov 07, 2023 04:13 PM Reporting Lab: [facility] [address] [facility] [address] Performing Lab: [facility] [place] [facility] [address] [facility] [address] [facility] [place] [facility] CBC AND DIFF (AUTO) PLATELETS [#/VOLUME] IN BLOOD BY AUTOMATED COUNT 262 10*3/uL 140 - 360 11/15 Specimen Type: BLOOD No comment entered. Ordering Provider: EVE TORRES Report Released Date/Time: Nov 07, 2023 04:13 PM Reporting Lab: [facility] [place] [facility] [address] [facility] [address] Performing Lab: [facility] [place] [facility] [address] [facility] [address] [facility] [place] [facility] CBC AND DIFF (AUTO) ERYTHROCYT E DISTRIBUTI ON WIDTH [RATIO] BY AUTOMATED COUNT 12.3 12.0 - 16.0 11/15 Specimen Type: BLOOD No comment entered. Ordering Provider: EVE TORRES Report Released Date/Time: Nov 07, 2023 04:13 PM Reporting Lab: [facility] [place] [facility] [address] [facility] [address] Performing Lab: [facility] [place] [facility] [address] [facility] [address] [facility] [place] [facility] CBC AND DIFF (AUTO) MONOCYTES [#/VOLUME] IN BLOOD BY AUTOMATED COUNT 0.56 10*3/uL 0.30 - 1.10 11/15 Specimen Type: BLOOD No comment entered. Ordering Provider: EVE TORRES Report Released Date/Time: Nov 07, 2023 04:13 PM Reporting Lab: [facility] [place] [facility] [address] [facility] [address] Performing Lab: [facility] [place] [facility] [address] [facility] [address] [facility] [place] [facility] CBC AND DIFF (AUTO) MCH [ENTITIC MASS] BY AUTOMATED COUNT 29.3 pg 26.2 - 32.6 11/15 Specimen Type: BLOOD No comment entered. Ordering Provider: EVE TORRES Report Released Date/Time: Nov 07, 2023 04:13 PM Reporting Lab: [facility] [place] [facility] [address] [facility] [address] Performing Lab: [facility] [place] [facility] [address] [facility] [address] [facility] [place] [facility] CBC AND DIFF (AUTO) NEUTROPHIL S/100 LEUKOCYTES IN BLOOD BY AUTOMATED COUNT 62.7 43.7 - 75.8 11/15 Specimen Type: BLOOD No comment entered. Ordering Provider: EVE TORRES Report Released Date/Time: Nov 07, 2023 04:13 PM Reporting Lab: [facility] [place] [facility] [address] [facility] [address] Performing Lab: [facility] [place] [facility] [address] [facility] [address] [facility] [place] [facility] CBC AND DIFF (AUTO) LYMPHOCYTE S/100 LEUKOCYTES IN BLOOD BY AUTOMATED COUNT 24.3 14.0 - 42.3 11/15 Specimen Type: BLOOD No comment entered. Ordering Provider: EVE TORRES Report Released Date/Time: Nov 07, 2023 04:13 PM Reporting Lab: [facility] [address] [facility] [address] Performing Lab: [facility] [address] [facility] [address] [facility] CBC AND DIFF (AUTO) MONOCYTES/ 100 LEUKOCYTES IN BLOOD BY AUTOMATED COUNT 9.1 5.1 - 13.7 11/15 Specimen Type: BLOOD No comment entered. Ordering Provider: EVE TORRES Report Released Date/Time: Nov 07, 2023 04:13 PM Reporting Lab: [facility] [address] [place] [address] Performing Lab: [facility] [place] [facility] [address] [facility] [address] [facility] [place] [facility] CBC AND DIFF (AUTO) EOSINOPHIL S/100 LEUKOCYTES IN BLOOD BY AUTOMATED COUNT 2.8 0.4 - 6.8 11/15 Specimen Type: BLOOD No comment entered. Ordering Provider: EVE TORRES Report Released Date/Time: Nov 07, 2023 04:13 PM Reporting Lab: [facility] [place] [address] [address] Performing Lab: [facility] [place] [address] [address] [facility] [place] [facility] CBC AND DIFF (AUTO) BASOPHILS/ 100 LEUKOCYTES IN BLOOD BY AUTOMATED COUNT 0.8 0.1 - 2.0 11/15 Specimen Type: BLOOD No comment entered. Ordering Provider: EVE TORRES Report Released Date/Time: Nov 07, 2023 04:13 PM Reporting Lab: [facility] [place] [address] [address] Performing Lab: [facility] [place] [address] [address] [facility] [place] [facility] CBC AND DIFF (AUTO) NEUTROPHIL S [#/VOLUME] IN BLOOD BY AUTOMATED COUNT 3.87 10*3/uL 2.20 - 7.60 11/15 Specimen Type: BLOOD No comment entered. Ordering Provider: EVE TORRES Report Released Date/Time: Nov 07, 2023 04:13 PM Reporting Lab: [facility] [place] [address] [address] Performing Lab: [facility] [place] [facility] [address] [facility] [address] [facility] [place] [facility] CBC AND DIFF (AUTO) LYMPHOCYTE S [#/VOLUME] IN BLOOD BY AUTOMATED COUNT 1.50 10*3/uL 1.00 - 3.20 11/15 Specimen Type: BLOOD No comment entered. Ordering Provider: EVE TORRES Report Released Date/Time: Nov 07, 2023 04:13 PM Reporting Lab: [facility] [place] [facility] [address] [facility] [address] Performing Lab: [facility] [place] [facility] [address] [facility] [address] [facility] [place] [facility] CBC AND DIFF (AUTO) EOSINOPHIL S [#/VOLUME] IN BLOOD BY AUTOMATED COUNT 0.17 10*3/uL 0.03 - 0.44 11/15 Specimen Type: BLOOD No comment entered. Ordering Provider: EVE TORRES Report Released Date/Time: Nov 07, 2023 04:13 PM Reporting Lab: [facility] [place] [facility] [address] [facility] [address] Performing Lab: [facility] [place] [address] [address] [facility] [place] [facility] CBC AND DIFF (AUTO) BASOPHILS [#/VOLUME] IN BLOOD BY AUTOMATED COUNT 0.05 10*3/uL 0.01 - 0.13 11/15 Specimen Type: BLOOD No comment entered. Ordering Provider: EVE TORRES Report Released Date/Time: Nov 07, 2023 04:13 PM Reporting Lab: [facility] [place] [facility] [address] [facility] [address] Performing Lab: [facility] [place] [facility] [address] [facility] [address] [facility] [place] [facility] CBC AND DIFF (AUTO) IMMATURE GRANULOCYT ES/100 LEUKOCYTES IN BLOOD BY AUTOMATED COUNT 0.3 0.0 - 0.7 11/15 Specimen Type: BLOOD No comment entered. Ordering Provider: EVE TORRES Report Released Date/Time: Nov 07, 2023 04:13 PM Reporting Lab: [facility] [place] [facility] [address] [facility] [address] Performing Lab: [facility] [place] [facility] [address] [facility] [address] [facility] [place] [facility] CBC AND DIFF (AUTO) IMMATURE GRANULOCYT ES [#/VOLUME] IN BLOOD 0.02 10*3/uL 0.00 - 0.06 11/15 Specimen Type: BLOOD No comment entered. Ordering Provider: EVE TORRES Report Released Date/Time: Nov 07, 2023 04:13 PM Reporting Lab: [facility] [place] [facility] [address] [facility] [address] Performing Lab: [facility] [place] [facility] [address] [facility] [address] [facility] [place] [facility] LIPID PANEL FASTING CHOLESTERO L [MASS/VOLU ME] IN SERUM OR PLASMA 173 mg/dL 11/15 Specimen Type: SERUM No comment entered. Ordering Provider: EVE TORRES Report Released Date/Time: Nov 07, 2023 04:13 PM Reporting Lab: [facility] [place] [facility] [address] [facility] [address] Performing Lab: [facility] [place] [facility] [address] [facility] [address] [facility] [place] [facility] LIPID PANEL FASTING TRIGLYCERI DE [MASS/VOLU ME] IN SERUM OR PLASMA 132 mg/dL 0 - 150 11/15 Specimen Type: SERUM No comment entered. Ordering Provider: EVE TORRES Report Released Date/Time: Nov 07, 2023 04:13 PM Reporting Lab: [facility] [place] [facility] [address] [facility] [address] Performing Lab: [facility] [place] [facility] [address] [facility] [address] [facility] [place] [facility] LIPID PANEL FASTING CHOLESTERO L IN LDL [MASS/VOLU ME] IN SERUM OR PLASMA BY CALCYOLETTE Fonseca 98 mg/dL 0 - 129 11/15 Specimen Type: SERUM No comment entered. Ordering Provider: EVE TORRES Report Released Date/Time: Nov 07, 2023 04:13 PM Reporting Lab: [facility] [place] [facility] [address] [facility] [address] Performing Lab: [facility] [place] [facility] [address] [facility] [address] [facility] [place] [facility] LIPID PANEL FASTING CHOLESTERO L.TOTAL/CH OLESTEROL IN HDL [MASS RATIO] IN SERUM OR PLASMA 3.5 11/15 Specimen Type: SERUM No comment entered. Ordering Provider: EVE TORRES Report Released Date/Time: Nov 07, 2023 04:13 PM Reporting Lab: [facility] [place] [facility] [address] [facility] [address] Performing Lab: [facility] [place] [address] [address] [facility] [place] [facility] LIPID PANEL FASTING CHOLESTERO L IN HDL [MASS/VOLU ME] IN SERUM OR PLASMA 49 mg/dL 40 - 60 11/15 Specimen Type: SERUM No comment entered. Ordering Provider: EVE TORRES Report Released Date/Time: Nov 07, 2023 04:13 PM Reporting Lab: [facility] [place] [address] [address] Performing Lab: [facility] [place] [address] [address] [facility] [place] [facility] LIVER FUNCTION PROTEIN [MASS/VOLU ME] IN SERUM OR PLASMA 7.1 g/dL 6.0 - 8.3 11/15 Specimen Type: SERUM No comment entered. Ordering Provider: EVE TORRES Report Released Date/Time: Nov 07, 2023 04:13 PM Reporting Lab: [facility] [place] [facility] [address] [facility] [address] Performing Lab: [facility] [place] [address] [address] [facility] [place] [facility] LIVER FUNCTION ALBUMIN [MASS/VOLU ME] IN SERUM OR PLASMA 4.2 g/dL 3.5 - 5.0 11/15 Specimen Type: SERUM No comment entered. Ordering Provider: EVE TORRES Report Released Date/Time: Nov 07, 2023 04:13 PM Reporting Lab: [facility] [place] [facility] [address] [facility] [address] Performing Lab: [facility] [place] [facility] [address] [facility] [address] [facility] [place] [facility] LIVER FUNCTION ALKALINE PHOSPHATAS E [ENZYMATIC ACTIVITY/V OLUME] IN SERUM OR PLASMA 56 U/L 40 - 150 11/15 Specimen Type: SERUM No comment entered. Ordering Provider: EVE TORRES Report Released Date/Time: Nov 07, 2023 04:13 PM Reporting Lab: [facility] [place] [address] Performing Lab: [facility] [place] [address] [address] [facility] [place] LIVER FUNCTION ASPARTATE AMINOTRANS FERASE [ENZYMATIC ACTIVITY/V OLUME] IN SERUM OR PLASMA 15 U/L 5 - 34 11/15 Specimen Type: SERUM No comment entered. Ordering Provider: EVE TORRES Report Released Date/Time: Nov 07, 2023 04:13 PM Reporting Lab: [facility] [place] [address] [address] Performing Lab: [facility] [place] [facility] [address] [facility] [address] [facility] [place] LIVER FUNCTION ALANINE AMINOTRANS FERASE [ENZYMATIC ACTIVITY/V OLUME] IN SERUM OR PLASMA 27 U/L 11/15 Specimen Type: SERUM No comment entered. Ordering Provider: EVE TORRES Report Released Date/Time: Nov 07, 2023 04:13 PM Reporting Lab: [facility] [place] [facility] [address] [facility] [address] Performing Lab: [facility] [place] [address] [address] [facility] LIVER FUNCTION BILIRUBIN. TOTAL [MASS/VOLU ME] IN SERUM OR PLASMA 0.5 mg/dL 0.2 - 1.2 11/15 Specimen Type: SERUM No comment entered. Ordering Provider: EVE TORRES Report Released Date/Time: Nov 07, 2023 04:13 PM Reporting Lab: [facility] [place] [facility] [address] [facility] [address] Performing Lab: [facility] [place] [facility] [address] [facility] [address] [facility] [place] MAGNESIU M MAGNESIUM [MASS/VOLU ME] IN SERUM OR PLASMA 2.1 mg/dL 1.6 - 2.6 11/15 Specimen Type: SERUM No comment entered. Ordering Provider: EVE TORRES Report Released Date/Time: Nov 07, 2023 04:13 PM Reporting Lab: [facility] [place] [address] [address] Performing Lab: [facility] [place] [address] [address] [facility] [facility] PSA PROSTATE SPECIFIC AG [MASS/VOLU ME] IN SERUM OR PLASMA 0.77 ng/mL 0.00 - 4.00 11/15 Specimen Type: SERUM No comment entered. Ordering Provider: EVE TORRES Report Released Date/Time: Nov 07, 2023 04:13 PM Reporting Lab: [facility] [place] [place] [address] [address] Performing Lab: [facility] [place] [facility] [address] [facility] [address] [facility] [place] TSH THYROTROPI N [UNITS/VOL UME] IN SERUM OR PLASMA 1.79 u[IU]/mL 0.35 - 5.00 11/15 Specimen Type: SERUM No comment entered. Ordering Provider: EVE TORRES Report Released Date/Time: Nov 07, 2023 04:13 PM Reporting Lab: [facility] [place] [address] [address] Performing Lab: [facility] [place] [facility] [address] [facility] [address] [facility] [place] [facility] URINALYS IS CLEAN CATCH COLOR OF URINE Light-Ye llow 11/15 Specimen Type: URINE Comment: If Glucose = >500 and Ketones are positive, please alert the Physician. Ordering Provider: EVE TORRES Report Released Date/Time: Nov 07, 2023 04:13 PM Reporting Lab: [facility] [place] [facility] [address] [facility] [address] Performing Lab: [facility] [place] [address] [address] [facility] [place] [facility] URINALYS IS CLEAN CATCH APPEARANCE OF URINE Clear 11/15 Specimen Type: URINE Comment: If Glucose = >500 and Ketones are positive, please alert the Physician. Ordering Provider: EVE TORRES Report Released Date/Time: Nov 07, 2023 04:13 PM Reporting Lab: [facility] [place] [facility] [address] [facility] [address] Performing Lab: [facility] [place] [facility] [address] [facility] [address] [facility] [place] [facility] URINALYS IS CLEAN CATCH GLUCOSE [MASS/VOLU ME] IN URINE NEGATIVE mg/dL 11/15 Specimen Type: URINE Comment: If Glucose = >500 and Ketones are positive, please alert the Physician. Ordering Provider: EVE TORRES Report Released Date/Time: Nov 07, 2023 04:13 PM Reporting Lab: [facility] [place] [address] [address] Performing Lab: [facility] [place] [address] [address] [facility] [place] [facility] URINALYS IS CLEAN CATCH KETONES [MASS/VOLU ME] IN URINE BY TEST STRIP NEGATIVE mg/dL 11/15 Specimen Type: URINE Comment: If Glucose = >500 and Ketones are positive, please alert the Physician. Ordering Provider: EVE TORRES Report Released Date/Time: Nov 07, 2023 04:13 PM Reporting Lab: [facility] [place] [facility] [address] [facility] [address] Performing Lab: [facility] [place] [facility] [address] [facility] [address] [facility] [place] URINALYS IS CLEAN CATCH ERYTHROCYT ES [PRESENCE] IN URINE SEDIMENT BY LIGHT MICROSCOPY NEGATIVE mg/dL 11/15 Specimen Type: URINE Comment: If Glucose = >500 and Ketones are positive, please alert the Physician. Ordering Provider: EVE TORRES Report Released Date/Time: Nov 07, 2023 04:13 PM Reporting Lab: [facility] [place] [facility] [address] [facility] [address] Performing Lab: [facility] [place] [facility] [address] [facility] [address] [facility] [place] URINALYS IS CLEAN CATCH PROTEIN [MASS/VOLU ME] IN URINE BY TEST STRIP NEGATIVE mg/dL 11/15 Specimen Type: URINE Comment: If Glucose = >500 and Ketones are positive, please alert the Physician. Ordering Provider: EVE TORRES Report Released Date/Time: Nov 07, 2023 04:13 PM Reporting Lab: [facility] [place] [facility] [address] [facility] [address] Performing Lab: [facility] [place] [facility] [address] [facility] [address] [facility] URINALYS IS CLEAN CATCH NITRITE [PRESENCE] IN URINE NEGATIVE mg/dL 11/15 Specimen Type: URINE Comment: If Glucose = >500 and Ketones are positive, please alert the Physician. Ordering Provider: EVE TORRES Report Released Date/Time: Nov 07, 2023 04:13 PM Reporting Lab: [facility] [place] [facility] [address] [facility] [address] Performing Lab: [facility] [place] [facility] [address] [facility] [address] [facility] [place] URINALYS IS CLEAN CATCH BILIRUBIN. TOTAL [PRESENCE] IN URINE NEGATIVE mg/dL 11/15 Specimen Type: URINE Comment: If Glucose = >500 and Ketones are positive, please alert the Physician. Ordering Provider: EVE TORRES Report Released Date/Time: Nov 07, 2023 04:13 PM Reporting Lab: [facility] [address] Performing Lab: [facility] [address] [facility] [facility] URINALYS IS CLEAN CATCH SPECIFIC GRAVITY OF URINE BY REFRACTOME TRY 1.018 1.016 - 1.022 11/15 Specimen Type: URINE Comment: If Glucose = >500 and Ketones are positive, please alert the Physician. Ordering Provider: EVE TORRES Report Released Date/Time: Nov 07, 2023 04:13 PM Reporting Lab: [facility] [address] Performing Lab: [facility] [address] [facility] URINALYS IS CLEAN CATCH PH OF URINE BY TEST STRIP 6.5 5.0 - 9.0 11/15 Specimen Type: URINE Comment: If Glucose = >500 and Ketones are positive, please alert the Physician. Ordering Provider: EVE TORRES Report Released Date/Time: Nov 07, 2023 04:13 PM Reporting Lab: [facility] [address] Performing Lab: [facility] [address] [facility] [address] [facility] URINALYS IS CLEAN CATCH UROBILINOG EN [MASS/VOLU ME] IN URINE BY TEST STRIP <2.0mg/d L <2.0 - 2.0 11/15 Specimen Type: URINE Comment: If Glucose = >500 and Ketones are positive, please alert the Physician. Ordering Provider: EVE TORRES Report Released Date/Time: Nov 07, 2023 04:13 PM Reporting Lab: [facility] [place] [facility] [address] [facility] [address] Performing Lab: [facility] [place] [facility] [address] [facility] [address] [facility] URINALYS IS CLEAN CATCH LEUKOCYTE ESTERASE [PRESENCE] IN URINE BY TEST STRIP NEGATIVE 11/15 Specimen Type: URINE Comment: If Glucose = >500 and Ketones are positive, please alert the Physician. Ordering Provider: EVE TORRES Report Released Date/Time: Nov 07, 2023 04:13 PM Reporting Lab: [facility] [place] [facility] [address] [facility] [address] Performing Lab: [facility] [place] [facility] [address] [facility] [address] [facility] [place] [facility] Vital Signs Combined list of inpatient and [...] included; 2) Encounters from the Department of [facility] facilities going backup to 280 months. Location Location Details Encounter Type Encounter Number Reason For Visit Attending Provider ADM Date DC Date Status Disposition Source [facility] Encounter [id number] D 07/15 [facility] En[facility] [id number] D 07/20 [facility] En[facility] [id number] 07/27 [facility] [id number] D 08/03 [facility] En[facility] [id number] 08/05 [facility] En[facility] [id number] D 08/06 [facility] OFF/OP EST DECEMBER X REQ PHY/QHP [id number] Diagnos is: ICD-10- CM I10 Essenti al (primar y) hyperte nsion MARIBEL WAGNER A 08/18 [facility] En[facility] [id number] 08/18 [facility] En[facility] [id number] 09/02 [facility] En[facility] [id number] 09/10 [facility] Encounter [id number] 09/22 [facility] En[facility] [id number] 09/23 [facility] OFF/OP EST MAY X REQ PHY/QHP [id number] Diagnos is: ICD-10- CM I10 Essenti al (primar y) MARIBEL Hodges 09/29 [facility] En[facility] [id number] 10/02 [facility] En[facility] [id number] 10/05 [facility] En[facility] [id number] Diagnos is: ICD-10- CM Z02.89 Encount er for other adminis trative examina RAUDEL Baca 10/28 [facility] En[facility] [id number] 11/10 [facility] En[facility] [id number] 11/10 [facility] OFFICE O/P EST SF 10 MIN [id number] Diagnos is: ICD-10- CM I10 Essenti al (primar y) hyperte LELAND Mcdowell RD D 11/17 [facility] ELECTROCAR DIOGRAM REPORT [id number] Diagnos is: ICD-10- CM Z13.6 Encount er for screeni ng for cardiov ascular disorde rs [place] NOEL 11/17 [facility] ELECTROCAR DIOGRAM TRACING [id number] Diagnos is: ICD-10- CM I10 Essenti al (primar y) hyperte LELAND Mcdowell RD D 11/17 [facility] En[facility] [id number] 11/25 [facility] En[facility] [id number] 12/02 [facility] Encounter [id number] D 03/04 [facility] En[facility] [id number] D 03/07 [facility] En[facility] [id number] 03/16 [facility] OFF[facility] O/P EST SF 10 MIN [id number] Diagnos is: ICD-10- CM I10 Essenti al (primar y) hyperte nsion LELAND TORRES RD D 03/25 [facility] En[facility] [id number] 03/28 [facility] En[facility] [id number] OSMEL BEAVER 04/05 [facility] En[facility] [id number] 04/07 [facility] OFF/OP EST MAY X REQ PHY/QHP [id number] Diagnos is: ICD-10- CM I10 Essenti al (primar y) hyperte nsion KHALIF,TI MOTHY E 04/25 [facility] En[facility] [id number]/26 [facility] En[facility] [id number] 05/17 [facility] OFFICE O/P EST LOW 20 MIN [id number] Diagnos is: ICD-10- CM M25.561 Pain in right knee LELAND TORRES RD D 05/18 [facility] En[facility] [id number] D 05/18 [facility] En[facility] [id number] D 05/19 [facility] En[facility] [id number] 1.06/02 [facility] EXTENDED VISUAL FIELD XM [id number] 1. Diagnos is: ICD-10- CM H40.013 Open angle with borderl ine finding s, low risk, bilater WENDY Guardado 06/06 [facility] CMPTR OPHTH IMG OPTIC NERVE [id number] 1. 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, bilater al HOWARDEYAD H B 06/09 [facility] FIT SPECTACLES MULTIFOCAL [id number] Diagnos is: ICD-10- CM Z46.0 Encount er for fit/adj st of spectac les and contact lenses HOWARD,EYAD H B 06/09 [facility] OFF/OP EST MAY X REQ PHY/QHP [id number] Diagnos is: ICD-10- CM I10 Essenti al (primar y) hyperte MARIBEL Spear A 06/20 [facility] En[facility] [id number] 06/21 [facility] En[facility] [id number] 06/23 [facility] En[facility] [id number] 06/30 [facility] Encounter [id number] 07/07 [facility] En[facility] [id number] 07/12 [facility] En[facility] [id number] 07/14 [facility] HEARING AID REPAIR/MOD IFYING [id number] Diagnos is: ICD-10- CM Z46.1 Encount er for fitting and adjustm ent of hearing aid SENIOR,JACKIE OLE L 07/18 [facility] OFF/OP EST MAY X REQ PHY/QHP [id number] Diagnos is: ICD-10- CM I10 Essenti al (primar y) hyperte MARIBEL Spear 07/22 [facility] Encounter [id number] D 07/22 [facility] Encounter [id number] D 08/08 [facility] Encounter [id number] D 08/08 [facility] En[facility] [id number] 08/23 [facility] Out[facility]counter [id number] 09/13 [facility]counter [id number] 09/22 [facility]counter [id number] D 11/01 [facility] Out[facility]counter [id number] D 11/02 [facility]counter [id number] 11/24 [facility] Out[facility]counter [id number] D 11/28 [facility] SPECIAL SUPPLIES PHYS/QHP [id number] Diagnos is: ICD-10- CM J44.9 Chronic obstruc tive pulmona ry disease , unspeci fied JARMOLOWMATHEUS CastilloSOFIYA 11/29 [facility] Outpatient Encounter [id number] 12/01 [facility] Social History Combined list of available smoking, tobacco, and other social history from Department of Defense and Veterans Affairs facilities. Social History Type Response Date Comment Sour e Tobacco smoking status NHIS VA-TOBACCO FORMER USER 11/18/2023 [facility] [facility] History of tobacco use VA-TOBACCO QUIT 15 YRS OR MORE 11/18/2023 [facility] [place] History of tobacco use VA-TOBACCO FORMER USER 08/01/2022 [facility] [place] [facility] History of tobacco use VA-TOBACCO QUIT 15 YRS OR MORE 2021 [facility] History of tobacco use VA-TOBACCO FORMER USER 07/12/2020 [facility] History of tobacco use VA-TOBACCO NEVER USED 09/23/2019 [facility] History of tobacco use VA-TOBACCO QUIT 15 YRS OR MORE 08/26/2019 [facility] History of tobacco use VA-TOBACCO QUIT 5 TO < 15 YRS 01/07/2019 [facility] History of tobacco use VA-TOBACCO NEVER USED 07/16/2018 [facility] History of tobacco use [facility]TOBACCO [facility] Plan of Care List of future care activities from Department of Veterans Affairs facilities. Additional future care activities may be listed in the Assessment and Plan section. Date/Time Care Activity Care Activity Detail Facili ty 12/15/2024 AMBULATORY - MEDICINE AMBULATORY - MEDICI NE [facility] [place] [facility]
== END 2024-12-15 09:30 | disposition home or self-care (01) ==
LOC: HO.HOS 08:48
PROVIDERS: PCP Family Medicine; Visit Provider Orthopaedic Surgery
DX: S83.241A Other tear of medial meniscus, current injury, right knee, initial encounter (principal); M25.561 Pain in right knee; M25.562 Pain in left knee
CPT/HCPCS: 99203; G2211

== ENCOUNTER → 2024-12-15 08:50 | Outpatient (BNV) | payer OTHER, SELFPAY | PROVIDERS: Visit Provider Radiology Diagnostic Radiology | DX: M11.261 Other chondrocalcinosis, right knee (principal); M17.11 Unilateral primary osteoarthritis, right knee; M11.262 Other chondrocalcinosis, left knee | CPT/HCPCS: 73562 ==

== ENCOUNTER → 2025-01-01 09:07 | Outpatient (BNV) | payer OTHER, SELFPAY | PROVIDERS: PCP Internal Medicine; Visit Provider Radiology Diagnostic Radiology | DX: S83.241A Other tear of medial meniscus, current injury, right knee, initial encounter (principal) | CPT/HCPCS: 73721 ==

== ENCOUNTER 2025-01-01 09:09 | Outpatient (REF) | payer OTHER, SELFPAY ==
--- NOTE | ~2025-01-01 | MR_ITS ---
EXAMINATION: MR KNEE WITHOUT CONTRAST, RIGHT CLINICAL INFORMATION: Other tear of medial meniscus, current injury, right knee. Right knee pain post injury (6 months ago) now held with physical therapy. Pain is medial and inferior to patella. 5. Prior surgeries with ACL repair. COMPARISON: No prior MRI. Plain films 12/15/2024. TECHNIQUE: MRI of the right knee without contrast was performed using routine sequences on a 1.5 Vicky Siemens high-field scanner. FINDINGS: MENISCI: Medial Meniscus: Oblique undersurface tearing of the posterior horn of the medial meniscus, extending into the posterior one half of the body. There is associated truncation of the free margin. The anterior horn appears grossly intact as does the anterior root entry zone. Lateral Meniscus: Discoid meniscus. Horizontal cleavage tear involving the body, entire anterior horn, and the medial one half of the posterior horn. This tear appears to communicate with the superior joint surface as well as the free margin of the meniscus. Irregular tearing involves the anterior horn extending into the root entry zone, with extension to the superior surface of the joint. The posterior horn root entry zone appears intact. LIGAMENTS: Anterior Cruciate: There is been a total ACL repair. The graft appears intact without recurrent tearing. There is no femoral tunnel stenosis identified Posterior Cruciate: Appears intact and normal in signal. No definite tear. Medial Collateral: Intact. There is thickening of the superior aspect, possibly on the basis of old injury. No surrounding edema. Lateral Collateral Complex: The biceps femoris tendon, conjoined tendon, fibular collateral ligament, and popliteus tendon all appear intact. There is diffusely increased signal throughout the popliteus tendon, consistent with tendinopathy (series 12, image 19). This could be degenerative or based upon acute injury. In addition, the superior fibular collateral ligament is mildly hyperintense and thickened near the insertional aspect, most likely on the basis of old injury. This can also be degenerative. EXTENSOR MECHANISM: Grossly intact without definite tear. Mildly increased signal of the patellar tendon just below the inferior pole of the patella, suggestive of tendinopathy (series 10, image 17). No quadriceps tendon pathology. The pre-femoral fat pad, suprapatellar fat pad, and Hoffa's fat pad are grossly normal in signal without gross edema. PATELLAR RETINACULUM: Intact without definite tear. The medial patellofemoral ligament is intact. BONE: Aside from postsurgical changes, no gross bone marrow edema or subchondral bone plate edema identified. No fracture or contusion. JOINTS/CARTILAGE: Medial Compartment: Chondrocalcinosis. Moderate thinning and eburnation of the medial tibial cartilage, without full-thickness defect. Moderate thinning and eburnation of the weightbearing medial femoral cartilage, with tiny full thickness defect involving the lateral aspect near the femoral condyle (series 12, images 15-16), with a tiny associated focus of subchondral bone plate edema. Nonweightbearing femoral cartilage is thinned but grossly intact. Lateral Compartment: Chondrocalcinosis. No significant cartilage thinning or focal defect identified. Nonweightbearing femoral cartilage is mildly thinned but intact. No foci of subchondral bone plate edema. Patellofemoral Compartment: Chondrocalcinosis. Moderate focal thinning of the mid femoral trochlear cartilage without full-thickness defect. Patellar cartilage appears intact. No foci of subchondral bone plate edema. JOINT FLUID AND BURSAE: There is a small to moderate size joint effusion. No bursal abnormalities identified. OTHER: Popliteal fossa demonstrates a tiny Ferrara's cyst medially. No additional abnormalities. MR/MR knee RT wo con IMPRESSION: 1. 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 There is extension to the free margin as well as the superior joint surface. 2. Oblique undersurface tearing of the posterior horn of the medial meniscus, extending into the posterior one half of the body. There is truncation of the free margin as well. 3. ACL repair with graft intact. No current or recurrent femoral tunnel stenosis. PCL intact. 4. Mild to moderate arthritis in the medial compartment. Very mild arthritis in the lateral and patellofemoral compartments. Tricompartmental significant chondrocalcinosis suggesting CPPD. Small joint effusion. 5. Diffusely high signal throughout the popliteus tendon, suggesting tendinopathy. This could be degenerative or based upon acute injury. 6. Tiny Ferrara's cyst. Electronically signed by: Bishop Guerrero MD 01/02/2025 11:46 AM EDT
== END 2025-01-01 09:10 | disposition home or self-care (01) ==
LOC: HO.MRI 09:09
PROVIDERS: PCP Internal Medicine; Visit Provider Orthopaedic Surgery
DX: S83.241A Other tear of medial meniscus, current injury, right knee, initial encounter (principal)
CPT/HCPCS: 73721

== ENCOUNTER 2025-01-03 14:11 | Outpatient (AMB) | payer OTHER, SELFPAY ==
--- NOTE | 2025-01-03 14:12 | A.OFFVIS_ITS ---
Vital Signs 01/03/25 14:13 Height 5 ft 10 in Weight 222 lb BMI 31.9 Intake Visit Reasons: Right knee pain and giving way Intake Note: Kvng is a 59 year old male who presents with complaints of bilateral knee pains and giving way, right greater than left. The patient has undergone surgery on both of his knees. He states that his most recent right knee surgery was in 2010. His most recent left knee surgery was in 2017. His right knee surgeries involved anterior cruciate ligament repairs. His left knee surgeries involved meniscus repairs. He states that his right knee will give out several times per day. He has had cortisone injections in the past. The most recent injection was done several months ago. He got minimal relief from the injection. He has also tried physical therapy exercises which aggravated his pain. He has failed the last 3 months of conservative treatment which have included a home exercise program, Tylenol and anti-inflammatory medicines. He wishes to hold off on further surgery if at all possible. His knee pains are now interfering with his activities of daily living and his ability to sleep well through the night. Allergies No Known Allergies Allergy (Verified 01/03/25 14:14) Medication List - Last Reconciled 01/04/25 by Jack Lei MD albuterol sulfate 2.5 mg (3 mL) inhalation Q4-6H PRN albuterol sulfate 90 mcg/actuation 2 puffs inhalation Q4-6H PRN atorvastatin 10 mg PO BEDTIME fluticasone propion-salmeterol 250-50 mcg/dose (Wixela Inhub) 1 inh inhalation Q12H losartan 25 mg PO DAILY magnesium oxide 420 mg PO DAILY metoprolol succinate ER 25 mg PO BID [facility] Social History Patient Tobacco Use Status: Former Tobacco user Tobacco use type: Cigarette Cigarette Packs Per Day: 1 Years Smoked: 5 Current occupational status: employed 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, 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 Exam Vital Signs: BMI result Body Mass Index 31.9 Const Other: Well-nourished well-developed very friendly male awake alert and oriented x3 in no acute distress Extrem Other: Bilateral lower extremity examination shows good capillary refill, no skin lesions noted, normal sensation light touch Right knee examination shows a minimal effusion, mild crepitus with range of motion, tenderness along his medial and lateral joint lines, positive Lea's test, no instability Results Reviewed Results Reviewed: Standing full weight-bearing x-rays of the patient's right knee show mild diffuse joint space narrowing, no acute bony abnormalities MRI of the patient's right knee shows mild diffuse degenerative changes as well as tearing of his medial and lateral menisci, no acute bony abnormalities Assessment & Plan Assessment & Plan (1) Tear of medial meniscus of right knee: Code(s): S83.241A - Other tear of medial meniscus, current injury, right knee, initial encounter Category: Medical Plan Mr. Cosme presents with progressively worsening right knee pain and mechanical symptoms due to tearing of his medial and lateral menisci. I had a lengthy discussion with the patient regarding the treatment options. At this point he has failed continued non operative treatments. The risks and benefits of right knee arthroscopic surgery were discussed at length with the patient. The patient wishes to proceed with surgery. Surgery will involve right knee arthroscopic partial medial and lateral meniscectomies. The patient does understand that he may not get 100% relief of his symptoms depending on the severity of his degenerative changes. He will be scheduled for next available date. He will follow-up as instructed. Feel free to call me at any time should questions regarding his orthopedic management arise. I spent 21 minutes in reviewing the patient's records and imaging studies, seeing the patient and documenting in the medical record. Coding Level of Care Code Est Pt Level 3 (70016) Complex EM visit Add On G2211 Diagnoses Tear of medial meniscus of right knee S83.241A
[2025-01-03 14:13] VITALS: BMI 31.9
--- OUTSIDE RECORDS SUMMARY | 2025-01-03 15:32 | XMS_ITS | Data Portability ---
Author Organization [place] - [facility], Allergy Address [address] [address] Care Team Providers Care Precinct Captain Name Role Phone JERICHO TORRES Primary Care [...] for June [id number] [id number] [email or web address] [facility] [place], [address] [facility], [facility] [address], [place], [address], 07/12/2024 15:09:15 Medication Orders None recorded. Patient TargetsNo targets recorded. Patient InstructionsNo instructions recorded. Reason for Referral None Reported. Problems Name Problem SNOMED Code Status Onset Date Resolution Date Notes Provider Name and Address Organization Details Recorded Time Mass of neck 843424793 Active 2022 Localized swelling, mass and lump, neck; Note: Date Diagnosed: 09/08/2022 2:30 PM (R22.1) Not Available [facility] 02:43:36 Neck swelling 465614149 Active 2022 Localized swelling, mass and lump, neck; Note: Date Diagnosed: 09/08/2022 2:30 PM (R22.1) Not Available [facility] 02:43:36 Problem Notes None recorded. Medical Equipment None Reported. Allergies No known drug allergies Medications Name Sig Start Date Stop Date Status Note LastModified by Organization Details LastModified Time magnesium oxide 420 mg tablet active Not Available Not Available No t Available atorvasta tin 10 mg tablet active Medicati on ID: [id number] B rand Name: atorvast atin Sen d Method: E-Prescr ibed Sub s Allowed: subs OK Medic ationGen ericName : atorvast atin Not Available Not Available Not Available amlodipin e 2.5 mg tablet 07/12 completed Medicati on ID: [id number] B rand Name: amlodipi ne Send Method: [...] Updated DateTime 07/12/2024 177.8 cm 30.8 kg/m2 63378.36 g Cristela Bosch [place] - [facility] 07/12/2024 14:58:35 Social History None recorded. Functional Status None recorded. Mental Status None recorded. Family History Nothing Reported. Medical History No medical history recorded. Past Encounters Encounter ID Performer Location Encounter Start Date Encounter Closed Date Diagnosis/Indication Diagnosis SNOMED-CT Code Diagnosis ICD10 Code Diagnosis Note [id number] LUKAS NAQVI MD [facility] on [address] [place] [address] 07/12/2024 14:41:03 07/12/2024 15:09:15 Neck swelling 119084613 R22.1 Health Concerns Section Related Observation LastModified by Organization Detai ls LastModified Time None Recorded Concern Status LastModified by Organization Details LastModified Time None Recorded Advance Directives Directive None Recorded Payers Encounter Date Sequence Insurance Name Policy Number Policy Rust Covered Member ID Rust Member ID Guarantor Name 07/12/2024 [employer] [place] [employer] [facility] Kvng Dickerson [id number] Kvng Dickerson Notes Date Note Type Note Provider Name and Address Organization Details Recorded Time 07/12/2024 text/html 59-year-old male presents today for evaluation of left-sided dermal nodules. He has had these present since at least 2020, and we have been monitoring them for about 2 years without any significant change. LUKAS NAQVI MD [address] [place] [address], [id number], [facility] 07/13/2024 10:52:35
--- OUTSIDE RECORDS SUMMARY | 2025-01-03 15:33 | XMS_ITS | Continuity of Care Document ---
Author Name DOD-PR Organization DOD-PR Care Team Providers Care Rounder Hand Name Role Phone DOD-PR Unavailable Unavailable Problems Combined list of problems [...] COPD - Chronic Obstructive Pulmonary Disease (SCT [id number]) Active 08/31/19 23 Condition Jul 21, 2023 [...] 22 Condition [facility] [place] REFRACTIVE ERROR - MYOPIA Active Condition DoD ASTIGMATISM Active Condition DoD REFRACTIVE ERROR - HYPERMETROPIA Active Condition DoD Exposure to potentially hazardous substance Active Condition Oct 20, 2023 Entered By: MARY KAY BAXTER SA Comment: Orignal ISAIAH Screen completed 08/01/22 [facility] HTN - Hypertension Active Condition [facility] HTN - Hypertension (SCT [id number]) Active Condition [facility] Hypercholesterolemia Active Condition [facility] [place] [facility] Hyperlipidemia Active Condition [facility] Keratoconjunctivitis sicca Active Condition [facility] Keratoconus Active Condition [facility] 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, 2017 Entered By: KENDRA HUBER Comment: left arm w/ lymph node removal [facility] 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 [facility] 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 [facility] Diagnosis: ICD-10-CM J44.9 Chronic obstructive pulmonary disease, [...] for screening for cardiovascular disorders Active Diagnosis [facility] Diagnosis: ICD-10-CM Z02.89 Encounter for other [...] WHEEZING RESPIR ATORY (INHAL ATION) ACTIVE 10/19/2025 [id number] CASSIUS FARAH 2024 1 [facility] ALBUTEROL 90MCG/ACTUA T (CFC-F) INHL,ORAL,8 .5GM DOSE COUNTER INHALE 2 PUFFS BY MOUTH EVERY 4 TO 6 HOURS NEEDED FOR SHORTNES S OF BREATH OR WHEEZING RESPIR ATORY (INHAL ATION) DISCONT INUED 05/18/2025 [id number] CASSIUS FARAH 2023 1 [facility] [place] [facility] ALBUTEROL 90MCG/ACTUA T (CFC-F) INHL,ORAL,8 .5GM DOSE COUNTER INHALE 2 PUFFS BY MOUTH EVERY 4 TO 6 HOURS NEEDED FOR SHORTNES S OF BREATH OR WHEEZING RESPIR ATORY (INHAL ATION) DISCONT INUED 09/03/2024 [id number] 4 CASSIUS FARAH 2023 1 [facility] [place] ALBUTEROL SO4 0.083% INHL,3ML INHALE 1 AMPULE IN NEBULIZE R EVERY 4 TO 6 HOURS NEEDED FOR BREATHIN G RESPIR ATORY (INHAL ATION) ACTIVE 02/21/2025 [id number] 5 CASSIUS FARAH 2024 180 [facility] amLODIPine (U/D) 10 MG ORAL TAB TAKE ONE TABLET BY MOUTH ONCE DAILY FOR BLOOD PRESSURE /HEART, DO NOT TAKE WITH GRAPEFRU IT JUICE 08/18/2024 [id number] 4 JERICHO TORRES 2023 90 [facility] AMLODIPINE BESYLATE 10MG TAB TAKE ONE TABLET BY MOUTH ONCE DAILY FOR BLOOD PRESSURE /HEART, DO NOT TAKE WITH GRAPEFRU IT JUICE ORAL DISCONT INUED BY PROVIDE R 08/18/2024 [id number] 4 KARLA TORRES D 2022 90 [facility] [place] atorvastati n (U/D) 20 MG ORAL TAB TAKE ONE-HALF TABLET BY MOUTH AT BEDTIME FOR CHOLESTE ROL 08/03/2024 [id number] 4 JERICHO TORRES 2023 45 [facility] atorvastati n (U/D) 20 MG ORAL TAB TAKE ONE-HALF TABLET BY MOUTH AT BEDTIME FOR CHOLESTE ROL 08/03/2024 [id number] 4 JERICHO TORRES 2023 45 [facility] ATORVASTATI N CA 20MG TAB TAKE ONE-HALF TABLET BY MOUTH AT BEDTIME FOR CHOLESTE ROL ORAL ACTIVE 06/24/2025 [id number] KARLA TORRES D 2023 45 [facility] ATORVASTATI N CA 20MG TAB TAKE ONE-HALF TABLET BY MOUTH AT BEDTIME FOR CHOLESTE ROL ORAL DISCONT INUED 08/03/2024 [id number] 4 KARLA TORRES D 2022 45 [facility] ATORVASTATI N CA 20MG TAB TAKE ONE-HALF TABLET BY MOUTH ONCE DAILY ORAL ACTIVE CATALINO ROWELL 2020 [facility] CYCLOSPORIN E 0.05% (PF) EMULSION,OP H,0.4ML INSTILL 1 DROP INTO EACH EYE TWICE DAILY FOR DRY EYE OPHTHA LMIC ACTIVE 06/10/2025 [id number] MERHAR,NO AH B 2023 180 [facility] FLUTICASONE 100MCG/SALM ETEROL 50MCG INHL,ORAL,D ISKUS,60 INHALE 1 PUFF BY MOUTH TWICE DAILY - RINSE MOUTH AFTER USE RESPIR ATORY (INHAL ATION) DISCONT INUED 11/11/2024 [id number] 4 CASSIUS FARAH 2023 1 [facility] FLUTICASONE 100MCG/SALM ETEROL 50MCG INHL,ORAL,D ISKUS,60 INHALE 1 PUFF BY MOUTH TWICE DAILY - RINSE MOUTH AFTER USE RESPIR ATORY (INHAL ATION) DISCONT INUED 09/04/2024 [id number] 4 CASSIUS FARAH 2023 1 [facility] FLUTICASONE 250MCG/SALM ETEROL 50MCG INHL,ORAL,D ISKUS,60 INHALE 1 PUFF BY MOUTH TWICE DAILY - RINSE MOUTH AFTER USE RESPIR ATORY (INHAL ATION) ACTIVE 10/19/2025 [id number] 5 CASSIUS FARAH 2024 1 [facility] FLUTICASONE 250MCG/SALM ETEROL 50MCG INHL,ORAL,D ISKUS,60 INHALE 1 PUFF BY MOUTH EVERY 12 HOURS - RINSE MOUTH AFTER USE RESPIR ATORY (INHAL ATION) DISCONT INUED 05/18/2025 [id number] 5 CASSIUS FARAH 2023 1 [facility] [place] FLUTICASONE /SALMETEROL , 100-50MCG, AER POW BA, INHALATION INHALE 1 PUFF BY MOUTH TWICE DAILY- RINSE MOUTH AFTER USE 11/11/2024 [id number] 4 CASSIUS FARAH 2023 1 [facility] FLUTICASONE /SALMETEROL , 100-50MCG, AER POW BA, INHALATION INHALE 1 PUFF BY MOUTH TWICE DAILY- RINSE MOUTH AFTER USE Discont inued 09/04/2024 [id number] 4 CASSIUS FARAH 2023 1 [facility] LOSARTAN 25MG TAB TAKE ONE TABLET BY MOUTH ONCE DAILY FOR BLOOD PRESSURE /HEART ORAL ACTIVE 12/20/2025 [id number] 5 KARLA TORRES 2024 90 [facility] LOSARTAN 25MG TAB TAKE ONE TABLET BY MOUTH ONCE DAILY FOR BLOOD PRESSURE /HEART ORAL DISCONT INUED 06/22/2025 [id number] 5 KARLA TORRES 2023 30 [facility] MAGNESIUM OXIDE 420 MG ORAL TAB TAKE ONE TABLET BY MOUTH ONCE DAILY 07/21/2024 [id number] 4 JERICHO TORRES 2023 90 [facility] MAGNESIUM OXIDE 420MG TAB TAKE ONE TABLET BY MOUTH ONCE DAILY ORAL ACTIVE 11/02/2025 [id number] 5 KARLA TORRES 2024 90 [facility] MAGNESIUM OXIDE 420MG TAB TAKE ONE TABLET BY MOUTH ONCE DAILY ORAL DISCONT INUED 07/21/2024 [id number] 4 KARLA TORRES 2022 90 [facility] METOPROLOL TARTRATE 25MG TAB TAKE ONE-HALF TABLET BY MOUTH TWICE DAILY FOR BLOOD PRESSURE /HEART ORAL DISCONT INUED BY PROVIDE R 03/26/2025 [id number] 4 KARLA TORRES 2023 90 [facility] METOPROLOL TARTRATE 50MG TAB TAKE ONE TABLET BY MOUTH TWICE DAILY FOR BLOOD PRESSURE /HEART ORAL ACTIVE 06/22/2025 [id number] 5 KALRA TORRES 2023 [facility] METOPROLOL TARTRATE 50MG TAB TAKE ONE TABLET BY MOUTH TWICE DAILY FOR BLOOD PRESSURE /HEART ORAL DISCONT INUED (EDIT) 05/19/2025 [id number] 4 KARLA TORRES 2023 60 [facility] NO KNOWN NON-VA MEDS MISCELLANEO US ACTIVE TYLER BOBO 2019 [facility] PREDNISONE 20MG TAB TAKE TWO TABLETS BY MOUTH ONCE DAILY ORAL 12/23/2024 [id number] 5 CASSIUS FARAH 2024 10 [facility] Allergies, Adverse Reactions, Alerts Combined list of allergies from Department of Defense and Veterans Affairs facilities. It does not include entries that were removed or entered in error. Substance Category Reaction Severity Reaction type Status Date Reported Comments Source AMLODIPINE Propensity to adverse reactions to drug (finding) Edema MILD active 4 [facility] LISINOPRIL Drug allergy (disorder) Cough active 3 [facility] LISINOPRIL Propensity to adverse reactions to drug (finding) Cough MODERATE active 3 [facility] Immunizations Combined list of available immunizations from the Department of Defense and Veterans Affairs facilities. Immunization Series Date Given Administered By Site Reaction Lot Number CVX Code Drug Microphone Boom Operator Status Comments Source INFLUENZA, SPLIT VIRUS, TRIVALENT, PF 2023 XIMENA TAPIA H RIGHT DELTO ID [id number] 140 complet ed [facility] INFLUENZA, INJECTABLE, QUADRIVALENT, PRESERVATIVE FREE 2022 MARIBEL WAGNER LEFT DELTO ID [id number] 150 complet ed Completed Series, [facility] INFLUENZA, INJECTABLE, QUADRIVALENT, PRESERVATIVE FREE 2021 150 complet ed [facility] INFLUENZA, INJECTABLE, QUADRIVALENT, PRESERVATIVE FREE 2020 150 complet ed [facility] COVID-19 (MODERNA), MRNA, LNP-S, PF, 100 MCG/0.5 ML DOSE 2 2020 207 complet ed MOD; [id number]; 1 [facility] COVID-19 (MODERNA), MRNA, LNP-S, PF, 100 MCG OR 50 MCG DOSE 1 2020 207 complet ed [facility] ZOSTER RECOMBINANT 2 2019 187 complet ed [facility] INFLUENZA, INJECTABLE, QUADRIVALENT 2018 158 complet ed [facility] ZOSTER RECOMBINANT 1 2018 187 complet ed [facility] INFLUENZA, TRIVALENT, ADJUVANTED 2018 168 complet ed [facility] TDAP 11/16/ 2016 115 complet ed [facility] [place] [facility] Results Combined list [...] Jun 21, 2024 05:43 PM Reporting Lab: [facility] [place] [facility] [address] [facility] [address] Performing Lab: [facility] [place] [facility] [address] [facility] [address] [facility] [place] [facility] BASIC METABOLI C PANEL (non-fas ting) GLUCOSE [MASS/VOLU ME] IN SERUM OR PLASMA 112 mg/dL 65 - 100 08/02 H Specimen Type: SERUM No comment entered. Ordering Provider: EVE TORRES Report Released Date/Time: Jun 21, 2024 05:43 PM Reporting Lab: [facility] [place] [facility] [address] [facility] [address] Performing Lab: [facility] [place] [place] [facility] [address] [facility] [address] [facility] BASIC METABOLI C PANEL (non-fas ting) SODIUM [MOLES/VOL UME] IN SERUM OR PLASMA 137 mmol/L 135 - 145 08/02 Specimen Type: SERUM No comment entered. Ordering Provider: EVE TORRES Report Released Date/Time: Jun 21, 2024 05:43 PM Reporting Lab: [facility] [place] [facility] [address] [facility] [address] Performing Lab: [facility] [place] [facility] [address] [facility] [address] [facility] BASIC METABOLI C PANEL (non-fas ting) POTASSIUM [MOLES/VOL UME] IN SERUM OR PLASMA 4.6 mmol/L 3.5 - 5.0 12/03 /2024 Specimen Type: SERUM No comment entered. Ordering Provider: EVE TORRES Report Released Date/Time: Jun 21, 2024 05:43 PM Reporting Lab: [facility] [address] [address] Performing Lab: [facility] [address] [facility] BASIC METABOLI C PANEL (non-fas ting) CHLORIDE [MOLES/VOL UME] IN SERUM OR PLASMA 102 mmol/L 100 - 110 08/02 Specimen Type: SERUM No comment entered. Ordering Provider: EVE TORRES Report Released Date/Time: Jun 21, 2024 05:43 PM Reporting Lab: [facility] [address] Performing Lab: [facility] [address] [facility] BASIC METABOLI C PANEL (non-fas ting) CARBON DIOXIDE, TOTAL [MOLES/VOL UME] IN SERUM OR PLASMA 24 meq/L 20 - 30 08/02 Specimen Type: SERUM No comment entered. Ordering Provider: EVE TORRES Report Released Date/Time: Jun 21, 2024 05:43 PM Reporting Lab: [facility] [address] Performing Lab: [facility] [address] [address] [facility] BASIC METABOLI C PANEL (non-fas ting) CREATININE [MASS/VOLU ME] IN SERUM OR PLASMA 0.97 mg/dL 0.50 - 1.40 08/02 Specimen Type: SERUM No comment entered. Ordering Provider: EVE TORRES Report Released Date/Time: Jun 21, 2024 05:43 PM Reporting Lab: [facility] [address] Performing Lab: [facility] [place] [place] [address] [facility] BASIC METABOLI C PANEL (non-fas ting) GLOMERULAR FILTRATION RATE/1.73 SQ M.PREDICTE D [VOLUME RATE/AREA] IN SERUM, PLASMA OR BLOOD BY CREATININE -BASED FORMULA (CKD-EPI 2020) 89 mL/min 60 08/02 Specimen Type: SERUM No comment entered. Ordering Provider: EVE TORRES Report Released Date/Time: Jun 21, 2024 05:43 PM Reporting Lab: [facility] [place] [address] [address] Performing Lab: [address] [address] [facility] OCCULT BLOOD FIT X1 SCREEN(I N-HOUSE) HEMOGLOBIN .GASTROINT ESTINAL.LO WER [PRESENCE] IN STOOL BY IMMUNOASSA Y Negative 05/18 Specimen Type: FECES No comment entered. Ordering Provider: EVE TORRES Report Released Date/Time: May 18, 2024 05:04 PM Reporting Lab: [address] [address] Performing Lab: [address] [address] [facility] LIVER FUNCTION PROTEIN [MASS/VOLU ME] IN SERUM OR PLASMA 7.1 g/dL 6.0 - 8.3 11/15 Specimen Type: SERUM No comment entered. Ordering Provider: EVE TORRES Report Released Date/Time: Nov 07, 2023 04:13 PM Reporting Lab: [address] [address] Performing Lab: [address] [address] [facility] LIVER FUNCTION ALBUMIN [MASS/VOLU ME] IN SERUM OR PLASMA 4.2 g/dL 3.5 - 5.0 11/15 Specimen Type: SERUM No comment entered. Ordering Provider: EVE TORRES Report Released Date/Time: Nov 07, 2023 04:13 PM Reporting Lab: [facility] [place] [facility] [address] [facility] [address] Performing Lab: [facility] [place] [facility] [address] [facility] [address] [facility] [place] [facility] LIVER FUNCTION ALKALINE PHOSPHATAS E [ENZYMATIC ACTIVITY/V OLUME] IN SERUM OR PLASMA 56 U/L 40 - 150 11/15 Specimen Type: SERUM No comment entered. Ordering Provider: EVE TORRES Report Released Date/Time: Nov 07, 2023 04:13 PM Reporting Lab: [facility] [place] [facility] [address] [facility] [address] Performing Lab: [facility] [place] [facility] [address] [facility] [address] [facility] [place] [facility] LIVER FUNCTION ASPARTATE AMINOTRANS FERASE [ENZYMATIC ACTIVITY/V OLUME] IN SERUM OR PLASMA 15 U/L 5 - 34 11/15 Specimen Type: SERUM No comment entered. Ordering Provider: EVE TORRES Report Released Date/Time: Nov 07, 2023 04:13 PM Reporting Lab: [facility] [place] [facility] [address] [facility] [address] Performing Lab: [facility] [place] [facility] [address] [facility] [address] [facility] [place] [facility] LIVER FUNCTION ALANINE AMINOTRANS FERASE [ENZYMATIC ACTIVITY/V OLUME] IN SERUM OR PLASMA 27 U/L 11/15 Specimen Type: SERUM No comment entered. Ordering Provider: EVE TORRES Report Released Date/Time: Nov 07, 2023 04:13 PM Reporting Lab: [facility] [place] [facility] [address] [facility] [address] Performing Lab: [facility] [place] [facility] [address] [facility] [address] [facility] [place] [facility] LIVER FUNCTION BILIRUBIN. TOTAL [MASS/VOLU ME] IN SERUM OR PLASMA 0.5 mg/dL 0.2 - 1.2 11/15 Specimen Type: SERUM No comment entered. Ordering Provider: EVE TORRES Report Released Date/Time: Nov 07, 2023 04:13 PM Reporting Lab: [facility] [place] [facility] [address] [facility] [address] Performing Lab: [facility] [place] [facility] [address] [facility] [address] [facility] [place] [facility] BASIC METABOLI C PANEL (fasting ) UREA NITROGEN [MASS/VOLU ME] IN SERUM OR PLASMA 15 mg/dL 7 - 25 11/15 Specimen Type: SERUM No comment entered. Ordering Provider: EVE TORRES Report Released Date/Time: Nov 07, 2023 04:13 PM Reporting Lab: [facility] [place] [facility] [address] [facility] [address] Performing Lab: [facility] [place] [address] [address] [facility] [place] [facility] BASIC METABOLI C PANEL (fasting ) GLUCOSE [MASS/VOLU ME] IN SERUM OR PLASMA 151 mg/dL 65 - 100 11/15 H Specimen Type: SERUM No comment entered. Ordering Provider: EVE TORRES Report Released Date/Time: Nov 07, 2023 04:13 PM Reporting Lab: [facility] [place] [address] [address] Performing Lab: [facility] [place] [place] [address] [address] [facility] [place] [facility] BASIC METABOLI C PANEL (fasting ) SODIUM [MOLES/VOL UME] IN SERUM OR PLASMA 137 mmol/L 135 - 145 11/15 Specimen Type: SERUM No comment entered. Ordering Provider: EVE TORRES Report Released Date/Time: Nov 07, 2023 04:13 PM Reporting Lab: [facility] [place] [facility] [address] [facility] [address] Performing Lab: [facility] [place] [place] [address] [address] [facility] [place] [facility] BASIC METABOLI C PANEL (fasting ) POTASSIUM [MOLES/VOL UME] IN SERUM OR PLASMA 4.3 mmol/L 3.5 - 5.0 11/15 Specimen Type: SERUM No comment entered. Ordering Provider: EVE TORRES Report Released Date/Time: Nov 07, 2023 04:13 PM Reporting Lab: [facility] [address] [address] Performing Lab: [facility] [place] [address] [address] [facility] [place] [facility] BASIC METABOLI C PANEL (fasting ) CHLORIDE [MOLES/VOL UME] IN SERUM OR PLASMA 102 mmol/L 100 - 110 11/15 Specimen Type: SERUM No comment entered. Ordering Provider: EVE TORRES Report Released Date/Time: Nov 07, 2023 04:13 PM Reporting Lab: [address] [address] Performing Lab: [address] [address] [facility] BASIC METABOLI C PANEL (fasting ) CARBON DIOXIDE, TOTAL [MOLES/VOL UME] IN SERUM OR PLASMA 26 meq/L 20 - 30 11/15 Specimen Type: SERUM No comment entered. Ordering Provider: EVE TORRES Report Released Date/Time: Nov 07, 2023 04:13 PM Reporting Lab: [address] [address] Performing Lab: [facility] [address] [address] [facility] BASIC METABOLI C PANEL (fasting ) CREATININE [MASS/VOLU ME] IN SERUM OR PLASMA 0.94 mg/dL 0.50 - 1.40 11/15 Specimen Type: SERUM No comment entered. Ordering Provider: EVE TORRES Report Released Date/Time: Nov 07, 2023 04:13 PM Reporting Lab: [address] [address] Performing Lab: [facility] [place] [facility] [address] [facility] [address] [facility] [place] [facility] BASIC METABOLI C PANEL (fasting ) GLOMERULAR FILTRATION RATE/1.73 SQ M.PREDICTE D [VOLUME RATE/AREA] IN SERUM, PLASMA OR BLOOD BY CREATININE -BASED FORMULA (CKD-EPI 2020) >90mL/mi n 60 11/15 Specimen Type: SERUM No comment entered. Ordering Provider: EVE TORRES Report Released Date/Time: Nov 07, 2023 04:13 PM Reporting Lab: [facility] [place] [facility] [address] [facility] [address] Performing Lab: [facility] [place] [facility] [address] [facility] [address] [facility] [place] [facility] CBC AND DIFF (AUTO) LEUKOCYTES [#/VOLUME] IN BLOOD BY AUTOMATED COUNT 6.17 10*3/uL 4.50 - 11.00 11/15 Specimen Type: BLOOD No comment entered. Ordering Provider: EVE TORRES Report Released Date/Time: Nov 07, 2023 04:13 PM Reporting Lab: [facility] [place] [place] [facility] [address] [facility] [address] Performing Lab: [facility] [place] [facility] [address] [facility] [address] [facility] [place] [facility] CBC AND DIFF (AUTO) ERYTHROCYT ES [#/VOLUME] IN BLOOD BY AUTOMATED COUNT 4.84 10*6/uL 4.23 - 5.66 11/15 Specimen Type: BLOOD No comment entered. Ordering Provider: EVE TORRES Report Released Date/Time: Nov 07, 2023 04:13 PM Reporting Lab: [facility] [place] [facility] [address] [facility] [address] Performing Lab: [facility] [place] [facility] [address] [facility] [address] [facility] [place] [facility] CBC AND DIFF (AUTO) HEMOGLOBIN [MASS/VOLU ME] IN BLOOD 14.2 g/dL 12.8 - 17 11/15 Specimen Type: BLOOD No comment entered. Ordering Provider: EVE TORRES Report Released Date/Time: Nov 07, 2023 04:13 PM Reporting Lab: [facility] [place] [facility] [address] [facility] [address] Performing Lab: [facility] [place] [facility] [address] [facility] [address] [facility] [place] [facility] CBC AND DIFF (AUTO) HEMATOCRIT [VOLUME FRACTION] OF BLOOD BY AUTOMATED COUNT 42.6 39.2 - 50.4 11/15 Specimen Type: BLOOD No comment entered. Ordering Provider: EVE TORRES Report Released Date/Time: Nov 07, 2023 04:13 PM Reporting Lab: [facility] [place] [facility] [address] [facility] [phone] Performing Lab: [facility] [place] [address] [address] [facility] [place] [facility] CBC AND DIFF (AUTO) MCV [ENTITIC VOLUME] BY AUTOMATED COUNT 88.0 fL 82 - 99 11/15 Specimen Type: BLOOD No comment entered. Ordering Provider: EVE TORRES Report Released Date/Time: Nov 07, 2023 04:13 PM Reporting Lab: [facility] [place] [facility] [address] [facility] [address] Performing Lab: [facility] [place] [facility] [address] [facility] [address] [facility] [place] [facility] CBC AND DIFF (AUTO) MCHC [MASS/VOLU ME] BY AUTOMATED COUNT 33.3 g/dL 30.8 - 35.1 11/15 Specimen Type: BLOOD No comment entered. Ordering Provider: EVE TORRES Report Released Date/Time: Nov 07, 2023 04:13 PM Reporting Lab: [facility] [place] [facility] [address] [facility] [address] Performing Lab: [facility] [place] [address] [address] [facility] [place] [facility] CBC AND DIFF (AUTO) PLATELETS [#/VOLUME] IN BLOOD BY AUTOMATED COUNT 262 10*3/uL 140 - 360 11/15 Specimen Type: BLOOD No comment entered. Ordering Provider: EVE TORRES Report Released Date/Time: Nov 07, 2023 04:13 PM Reporting Lab: [facility] [place] [facility] [address] [facility] [address] Performing Lab: [facility] [place] [facility] [address] [facility] [address] [facility] [place] [facility] CBC AND DIFF (AUTO) ERYTHROCYT E DISTRIBUTI ON WIDTH [RATIO] BY AUTOMATED COUNT 12.3 12.0 - 16.0 11/15 Specimen Type: BLOOD No comment entered. Ordering Provider: EVE TORRES Report Released Date/Time: Nov 07, 2023 04:13 PM Reporting Lab: [facility] [place] [address] [address] Performing Lab: [facility] [place] [facility] [facility] [address] [facility] [address] [facility] [place] [facility] CBC AND DIFF (AUTO) MONOCYTES [#/VOLUME] IN BLOOD BY AUTOMATED COUNT 0.56 10*3/uL 0.30 - 1.10 11/15 Specimen Type: BLOOD No comment entered. Ordering Provider: EVE TORRES Report Released Date/Time: Nov 07, 2023 04:13 PM Reporting Lab: [facility] [place] [place] [address] [address] Performing Lab: [facility] [place] [facility] [address] [facility] [address] [facility] [place] [facility] CBC AND DIFF (AUTO) MCH [ENTITIC MASS] BY AUTOMATED COUNT 29.3 pg 26.2 - 32.6 11/15 Specimen Type: BLOOD No comment entered. Ordering Provider: EVE TORRES Report Released Date/Time: Nov 07, 2023 04:13 PM Reporting Lab: [facility] [place] [address] [address] Performing Lab: [facility] [place] [address] [address] [facility] [place] [facility] CBC AND DIFF (AUTO) NEUTROPHIL S/100 LEUKOCYTES IN BLOOD BY AUTOMATED COUNT 62.7 43.7 - 75.8 11/15 Specimen Type: BLOOD No comment entered. Ordering Provider: EVE TORRES Report Released Date/Time: Nov 07, 2023 04:13 PM Reporting Lab: [facility] [place] [facility] [address] [facility] [address] Performing Lab: [facility] [place] [facility] [address] [facility] [address] [facility] [place] [facility] CBC AND DIFF (AUTO) LYMPHOCYTE S/100 LEUKOCYTES IN BLOOD BY AUTOMATED COUNT 24.3 14.0 - 42.3 11/15 Specimen Type: BLOOD No comment entered. Ordering Provider: EVE TORRES Report Released Date/Time: Nov 07, 2023 04:13 PM Reporting Lab: [facility] [place] [facility] [address] [facility] [address] Performing Lab: [facility] [place] [facility] [address] [facility] [address] [facility] [place] [facility] CBC AND DIFF (AUTO) MONOCYTES/ 100 LEUKOCYTES IN BLOOD BY AUTOMATED COUNT 9.1 5.1 - 13.7 11/15 Specimen Type: BLOOD No comment entered. Ordering Provider: EVE TORRES Report Released Date/Time: Nov 07, 2023 04:13 PM Reporting Lab: [facility] [place] [facility] [address] [facility] [address] Performing Lab: [facility] [place] [facility] [address] [facility] [address] [facility] [place] [facility] CBC AND DIFF (AUTO) EOSINOPHIL S/100 LEUKOCYTES IN BLOOD BY AUTOMATED COUNT 2.8 0.4 - 6.8 11/15 Specimen Type: BLOOD No comment entered. Ordering Provider: EVE TORRES Report Released Date/Time: Nov 07, 2023 04:13 PM Reporting Lab: [facility] [place] [facility] [address] [facility] [address] Performing Lab: [facility] [place] [facility] [address] [facility] [address] [facility] [place] [facility] CBC AND DIFF (AUTO) BASOPHILS/ 100 LEUKOCYTES IN BLOOD BY AUTOMATED COUNT 0.8 0.1 - 2.0 11/15 Specimen Type: BLOOD No comment entered. Ordering Provider: EVE TORRES Report Released Date/Time: Nov 07, 2023 04:13 PM Reporting Lab: [facility] [place] [facility] [address] [facility] [address] Performing Lab: [facility] [place] [facility] [address] [facility] [address] [facility] [place] [facility] CBC AND DIFF (AUTO) NEUTROPHIL S [#/VOLUME] IN BLOOD BY AUTOMATED COUNT 3.87 10*3/uL 2.20 - 7.60 11/15 Specimen Type: BLOOD No comment entered. Ordering Provider: EVE TORRES Report Released Date/Time: Nov 07, 2023 04:13 PM Reporting Lab: [facility] [place] [facility] [address] [facility] [address] Performing Lab: [facility] [place] [facility] [address] [facility] [address] [facility] [place] [facility] CBC AND DIFF (AUTO) LYMPHOCYTE S [#/VOLUME] IN BLOOD BY AUTOMATED COUNT 1.50 10*3/uL 1.00 - 3.20 11/15 Specimen Type: BLOOD No comment entered. Ordering Provider: EVE TORRES Report Released Date/Time: Nov 07, 2023 04:13 PM Reporting Lab: [facility] [place] [facility] [address] [facility] [address] Performing Lab: [facility] [place] [facility] [address] [facility] [address] [facility] [place] [place] [facility] CBC AND DIFF (AUTO) EOSINOPHIL S [#/VOLUME] IN BLOOD BY AUTOMATED COUNT 0.17 10*3/uL 0.03 - 0.44 11/15 Specimen Type: BLOOD No comment entered. Ordering Provider: EVE TORRES Report Released Date/Time: Nov 07, 2023 04:13 PM Reporting Lab: [facility] [place] [facility] [address] [facility] [address] Performing Lab: [facility] [place] [facility] [address] [facility] [address] [facility] [place] [facility] CBC AND DIFF (AUTO) BASOPHILS [#/VOLUME] IN BLOOD BY AUTOMATED COUNT 0.05 10*3/uL 0.01 - 0.13 11/15 Specimen Type: BLOOD No comment entered. Ordering Provider: EVE TORRES Report Released Date/Time: Nov 07, 2023 04:13 PM Reporting Lab: [facility] [place] [facility] [address] [facility] [address] Performing Lab: [facility] [place] [facility] [address] [facility] [address] [facility] [place] [facility] CBC AND DIFF (AUTO) IMMATURE GRANULOCYT ES/100 LEUKOCYTES IN BLOOD BY AUTOMATED COUNT 0.3 0.0 - 0.7 11/15 Specimen Type: BLOOD No comment entered. Ordering Provider: EVE TORRES Report Released Date/Time: Nov 07, 2023 04:13 PM Reporting Lab: [facility] [place] [facility] [address] [facility] [address] Performing Lab: [facility] [place] [facility] [address] [facility] [address] [facility] [place] [place] [facility] CBC AND DIFF (AUTO) IMMATURE GRANULOCYT ES [#/VOLUME] IN BLOOD 0.02 10*3/uL 0.00 - 0.06 11/15 Specimen Type: BLOOD No comment entered. Ordering Provider: EVE TORRES Report Released Date/Time: Nov 07, 2023 04:13 PM Reporting Lab: [facility] [place] [facility] [address] [facility] [address] Performing Lab: [facility] [place] [address] [address] [facility] [place] [facility] TSH THYROTROPI N [UNITS/VOL UME] IN SERUM OR PLASMA 1.79 u[IU]/mL 0.35 - 5.00 11/15 Specimen Type: SERUM No comment entered. Ordering Provider: EVE TORRES Report Released Date/Time: Nov 07, 2023 04:13 PM Reporting Lab: [facility] [place] [facility] [address] [facility] [address] Performing Lab: [facility] [place] [facility] [address] [facility] [address] [facility] [place] [facility] LIPID PANEL FASTING CHOLESTERO L [MASS/VOLU ME] IN SERUM OR PLASMA 173 mg/dL 11/15 Specimen Type: SERUM No comment entered. Ordering Provider: EVE TORRES Report Released Date/Time: Nov 07, 2023 04:13 PM Reporting Lab: [facility] [place] [facility] [address] [facility] [address] Performing Lab: [facility] [place] [address] [address] [facility] [place] [facility] LIPID PANEL FASTING TRIGLYCERI DE [MASS/VOLU ME] IN SERUM OR PLASMA 132 mg/dL 0 - 150 11/15 Specimen Type: SERUM No comment entered. Ordering Provider: EVE TORRES Report Released Date/Time: Nov 07, 2023 04:13 PM Reporting Lab: [facility] [place] [facility] [address] [facility] [address] Performing Lab: [facility] [place] [facility] [address] [facility] [address] [facility] [place] [facility] LIPID PANEL FASTING CHOLESTERO L IN LDL [MASS/VOLU ME] IN SERUM OR PLASMA BY CALCULATIO N 98 mg/dL 0 - 129 11/15 Specimen Type: SERUM No comment entered. Ordering Provider: EVE TORRES Report Released Date/Time: Nov 07, 2023 04:13 PM Reporting Lab: [facility] [place] [facility] [address] [facility] [address] Performing Lab: [facility] [place] [address] [address] [facility] [place] [facility] LIPID PANEL FASTING CHOLESTERO L.TOTAL/CH OLESTEROL IN HDL [MASS RATIO] IN SERUM OR PLASMA 3.5 11/15 Specimen Type: SERUM No comment entered. Ordering Provider: EVE TORRES Report Released Date/Time: Nov 07, 2023 04:13 PM Reporting Lab: [facility] [address] Performing Lab: [facility] [address] [facility] LIPID PANEL FASTING CHOLESTERO L IN HDL [MASS/VOLU ME] IN SERUM OR PLASMA 49 mg/dL 40 - 60 11/15 Specimen Type: SERUM No comment entered. Ordering Provider: EVE TORRES Report Released Date/Time: Nov 07, 2023 04:13 PM Reporting Lab: [facility] [address] Performing Lab: [facility] [address] [facility] [place] [facility] MAGNESIU M MAGNESIUM [MASS/VOLU ME] IN SERUM OR PLASMA 2.1 mg/dL 1.6 - 2.6 11/15 Specimen Type: SERUM No comment entered. Ordering Provider: EVE TORRES Report Released Date/Time: Nov 07, 2023 04:13 PM Reporting Lab: [facility] [place] [address] [address] Performing Lab: [facility] [place] [address] [address] [facility] PSA PROSTATE SPECIFIC AG [MASS/VOLU ME] IN SERUM OR PLASMA 0.77 ng/mL 0.00 - 4.00 11/15 Specimen Type: SERUM No comment entered. Ordering Provider: EVE TORRES Report Released Date/Time: Nov 07, 2023 04:13 PM Reporting Lab: [facility] TRN [address] [address] Performing Lab: [facility] [place] [facility] [address] [facility] [address] [facility] [place] [facility] URINALYS IS CLEAN CATCH COLOR OF URINE Light-Ye llow 11/15 Specimen Type: URINE Comment: If Glucose = >500 and Ketones are positive, please alert the Physician. Ordering Provider: EVE TORRES Report Released Date/Time: Nov 07, 2023 04:13 PM Reporting Lab: [facility] [place] [facility] [address] [facility] [address] Performing Lab: [facility] [place] [facility] [address] [facility] [address] [facility] [place] [facility] URINALYS IS CLEAN CATCH APPEARANCE OF URINE Clear 11/15 Specimen Type: URINE Comment: If Glucose = >500 and Ketones are positive, please alert the Physician. Ordering Provider: EVE TORRES Report Released Date/Time: Nov 07, 2023 04:13 PM Reporting Lab: [facility] [place] [address] [address] Performing Lab[facility] [place] [address] [address] [facility] [place] [facility] URINALYS IS CLEAN CATCH GLUCOSE [MASS/VOLU ME] IN URINE NEGATIVE mg/dL 11/15 Specimen Type: URINE Comment: If Glucose = >500 and Ketones are positive, please alert the Physician. Ordering Provider: EVE TORRES Report Released Date/Time: Nov 07, 2023 04:13 PM Reporting Lab: [facility] [place] [address] [address] Performing Lab: [facility] [place] [address] [address] [facility] [place] [facility] URINALYS IS CLEAN CATCH KETONES [MASS/VOLU ME] IN URINE BY TEST STRIP NEGATIVE mg/dL 11/15 Specimen Type: URINE Comment: If Glucose = >500 and Ketones are positive, please alert the Physician. Ordering Provider: EVE TORRES Report Released Date/Time: Nov 07, 2023 04:13 PM Reporting Lab: [facility] [place] [facility] [address] [facility] [address] Performing Lab: [facility] [place] [facility] [address] [facility] [address] [facility] [place] [facility] URINALYS IS CLEAN CATCH ERYTHROCYT ES [PRESENCE] IN URINE SEDIMENT BY LIGHT MICROSCOPY NEGATIVE mg/dL 11/15 Specimen Type: URINE Comment: If Glucose = >500 and Ketones are positive, please alert the Physician. Ordering Provider: EVE TORRES Report Released Date/Time: Nov 07, 2023 04:13 PM Reporting Lab: [facility] [place] [facility] [address] [facility] [address] Performing Lab: [facility] [place] [facility] [address] [facility] [address] [facility] [place] [facility] URINALYS IS CLEAN CATCH PROTEIN [MASS/VOLU ME] IN URINE BY TEST STRIP NEGATIVE mg/dL 11/15 Specimen Type: URINE Comment: If Glucose = >500 and Ketones are positive, please alert the Physician. Ordering Provider: EVE TORRES Report Released Date/Time: Nov 07, 2023 04:13 PM Reporting Lab: [facility] [place] [facility] [address] [facility] [address] Performing Lab: [facility] [place] [facility] [address] [facility] [address] [facility] [place] [facility] URINALYS IS CLEAN CATCH NITRITE [PRESENCE] IN URINE NEGATIVE mg/dL 11/15 Specimen Type: URINE Comment: If Glucose = >500 and Ketones are positive, please alert the Physician. Ordering Provider: EVE TORRES Report Released Date/Time: Nov 07, 2023 04:13 PM Reporting Lab: [facility] [place] [facility] [address] [facility] [address] Performing Lab: [facility] [place] [facility] [address] [facility] [address] [facility] [place] [facility] URINALYS IS CLEAN CATCH BILIRUBIN. TOTAL [PRESENCE] IN URINE NEGATIVE mg/dL 11/15 Specimen Type: URINE Comment: If Glucose = >500 and Ketones are positive, please alert the Physician. Ordering Provider: EVE TORRES Report Released Date/Time: Nov 07, 2023 04:13 PM Reporting Lab: [facility] [address] Performing Lab: [facility] [place] [facility] [address] [facility] [place] [facility] URINALYS IS CLEAN CATCH SPECIFIC GRAVITY OF URINE BY REFRACTOME TRY 1.018 1.016 - 1.022 11/15 Specimen Type: URINE Comment: If Glucose = >500 and Ketones are positive, please alert the Physician. Ordering Provider: EVE TORRES Report Released Date/Time: Nov 07, 2023 04:13 PM Reporting Lab: [facility] [place] [facility] [address] Performing Lab: [facility] [address] [facility] URINALYS IS CLEAN CATCH PH OF URINE BY TEST STRIP 6.5 5.0 - 9.0 11/15 Specimen Type: URINE Comment: If Glucose = >500 and Ketones are positive, please alert the Physician. Ordering Provider: EVE TORRES Report Released Date/Time: Nov 07, 2023 04:13 PM Reporting Lab: [facility] [place] [facility] [address] Performing Lab: [facility]ITALTRN [facility] [address] [facility] [place] [facility] URINALYS IS CLEAN CATCH UROBILINOG EN [MASS/VOLU ME] IN URINE BY TEST STRIP <2.0mg/d L <2.0 - 2.0 11/15 Specimen Type: URINE Comment: If Glucose = >500 and Ketones are positive, please alert the Physician. Ordering Provider: EVE TORRES Report Released Date/Time: Nov 07, 2023 04:13 PM Reporting Lab: [facility] [place] [facility] [address] [facility] [address] Performing Lab: [facility] [place] [facility] [address] [facility] [address] [facility] [place] [facility] URINALYS IS CLEAN CATCH LEUKOCYTE ESTERASE [PRESENCE] IN URINE BY TEST STRIP NEGATIVE 11/15 Specimen Type: URINE Comment: If Glucose = >500 and Ketones are positive, please alert the Physician. Ordering Provider: EVE TORRES Report Released Date/Time: Nov 07, 2023 04:13 PM Reporting Lab: [facility] [place] [facility] [address] [facility] [address] Performing Lab: [facility] [place] [facility] [address] [facility] [address] [facility] [place] [facility] Vital Signs Combined list of inpatient and [...] included; 2) Encounters from the Department of [facility] facilities going backup to 280 months. Location Location Details Encounter Type Encounter Number Reason For Visit Attending Provider ADM Date DC Date Status [facility] OUTPATIENT [id number] Eye exam TANA WALLACE 04/22 Released w/o Limitations [facility]) OUTPATIENT [id number] CL fitting F/U TANA WALLACE 05/15 Released w/o Limitations [facility]( [facility]) [facility] Outpatient Encounter [id number] D 07/15 [facility] [place] Encounter [id number] D 07/20 [facility] En[facility] [id number] 07/27 [facility] Encounter [id number] D 08/03 [facility] Encounter [id number] 08/05 [facility] Encounter [id number] 08/06 [facility] OFF/OP EST MAY X REQ PHY/QHP [id number] Diagnos is: ICD-10- CM I10 Essenti al (primar y) hyperte mayte WAGNERMARIBEL A 08/18 [facility] En[facility] [id number] 08/18 [facility] Encounter [id number] 09/02 [facility] Encounter [id number] 09/10 [facility] Encounter [id number] 09/22 [facility] Encounter [id number] 09/23 [facility] OFF/OP EST MAY X REQ PHY/QHP [id number] Diagnos is: ICD-10- CM I10 Essenti al (primar y) hyperte mayte YATESMARIBEL FORBES 09/29 [facility] Encounter [id number] 10/02 [facility] Encounter [id number] 10/05 [facility] Out[facility] Encounter [id number] Diagnos is: ICD-10- CM Z02.89 Encount er for other adminis trative examina RAUDEL BacaRaymundo L 10/28 [facility] Encounter [id number] 11/10 [facility] Encounter [id number] 11/10 [facility] [place] [facility] OFFICE O/P EST SF 10 MIN [id number] Diagnos is: ICD-10- CM I10 Essenti al (primar y) hyperte LELAND Mcdowell RD D 11/17 [facility] [place] [facility] [id number] Diagnos is: ICD-10- CM Z13.6 Encount er for screeni ng for cardiov ascular disorde rs [place] NOEL 11/17 [place] [facility] [place] [facility] ELECTROCAR DIOGRAM TRACING [id number] Diagnos is: ICD-10- CM I10 Essenti al (primar y) hyperte LELAND Mcdowell RD D 11/17 [facility] Encounter [id number] 11/25 [facility] Encounter [id number] 12/02 [facility] Encounter [id number] D 03/04 [facility] Encounter [id number] D 03/07 [facility] Encounter [id number] 03/16 [facility] OFFICE O/P EST SF 10 MIN [id number] Diagnos is: ICD-10- CM I10 Essenti al (primar y) hyperte nsion LELAND TORRES RD 03/25 [facility] En[facility] [id number] 03/28 [facility] En[facility] [id number] OSMEL BEAVER 04/05 [facility] Encounter [id number] 04/07 [facility] OFF/OP EST MAY X REQ PHY/QHP [id number] Diagnos is: ICD-10- CM I10 Essenti al (primar y) hyperte nsion NICO CUADRA 04/25 [facility] Out[facility] Encounter [id number] 04/26 [facility] Out[facility] Encounter [id number] 05/17 [facility] OFFICE O/P EST LOW 20 MIN [id number] Diagnos is: ICD-10- CM M25.561 Pain in right knee LELAND TORRES RD D 05/18 [facility] Out[facility] Encounter [id number] D 05/18 [facility] Out[facility] Encounter [id number] D 05/19 [facility] Out[facility] Encounter [id number] 1.06/02 [facility] [place]M [id number] 1. Diagnos is: ICD-10- CM H40.013 Open angle with borderl ine finding s, low risk, bilater WENDY Guardado E 06/06 [facility] CMPTR OPHTH IMG OPTIC NERVE [id number] 1. Diagnos is: ICD-10- CM H40.013 Open angle with borderl ine finding s, low risk, bilater al WENDY MCDONNELL E 06/06 [facility] COMPRE OPH EXAM EST PT 1/> [id number] 1. 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, bilater EYAD Albright 06/09 [facility] FIT SPECTACLES MULTIFOCAL [id number] Diagnos is: ICD-10- CM Z46.0 Encount er for fit/adj st of spectac les and contact lenses HOWARDEAYD Wiggins 06/09 [facility] OFF/OP EST DECEMBER X REQ PHY/QHP [id number] Diagnos is: ICD-10- CM I10 Essenti al (primar y) hyperte nsion KRISTYMARIBEL Enriquez 06/20 [facility] Out[facility] Encounter [id number] 06/21 [facility] [facility] En[facility] [id number] 06/23 [facility] Encounter [id number] 06/30 [facility] Encounter [id number] 07/07 [facility] Encounter [id number] 07/12 [facility] Encounter [id number] 07/14 [facility] HEARING AID REPAIR/MOD IFYING [id number] Diagnos is: ICD-10- CM Z46.1 Encount er for fitting and adjustm ent of hearing aid JACKIE FLOWER 07/18 [facility] OFF/OP EST DECEMBER X REQ PHY/QHP [id number] Diagnos is: ICD-10- CM I10 Essenti al (primar y) hyperte nsMARIBEL Pereira A 07/22 [facility] Out[facility] Encounter [id number] D 07/22 [facility] Out[facility] Encounter [id number] D 08/08 [facility] Encounter [id number] D 08/08 [facility] Out[facility] Encounter [id number] 08/23 [facility] Out[facility] Encounter [id number] 09/13 [facility] Out[facility] Encounter [id number] 09/22 [facility] Out[facility] Encounter [id number] D 11/01 [facility] Out[facility] Encounter [id number] D 11/02 [facility] Out[facility] Encounter [id number] 11/23 [facility] Out[facility] Encounter [id number] 11/23 [facility] Out[facility] Encounter [id number] 11/24 [facility] Out[facility] Encounter [id number] D 11/28 [facility] SPECIAL SUPPLIES PHYS/QHP [id number] Diagnos is: ICD-10- CM J44.9 Chronic obstruc tive pulmona ry disease , unspeci fied JARMOLOWIC Z,SOFIYA 11/29 [facility] Out[facility] Encounter [id number] 12/01 [facility] Out[facility] Encounter [id number] D 12/19 [facility] Outpatient Encounter [id number] 12/28 [facility] Procedures Combined list of: 1) Procedures from Department of Veterans Affairs facilities going back up to thelast 18 months, not all VA non-surgical procedures are included; 2) All procedures from the Department of Defense facilities. Procedure Procedure Type Code Date Perfomer Hemla chisholm Ophthalmological Prior Patient Start Intermediate Level Care Ophthalmological Prior Patient Start Intermediate Level Care 16217 TANA SOTOMAYOR Ophthalmological Prior Patient Start Intermediate Level Care Ophthalmological Prior Patient Start Intermediate Level Care 5 TANA WALLACE Determination Of Refractive State Determination Of Refractive State [id number] TANA WALLACE Prescription & Fitting Bilateral Corneal Lenses (Not Aphakia Prescription & Fitting Bilateral Corneal Lenses (Not Aphakia [phone] 5 TANA WALLACE DoD SUPP &MATERIAL (EXCEPT SPECTACLE),PROVID,THE [facility]/OTH QUALIFIED HEALTH INSTRUMENT TECHNICIAN APPRENTICE OVER &ABOVE THOSE USUALLY INCLD W THE OFFICE VISIT/OTH SER RENDERED (LIST DRUG,TRAYS,SUPP,OR MATERIAL PROVID) 3 DoD SUPP &MATERIAL (EXCEPT SPECTACLE),PROVID,THE PHYS/OT QUALIFIED HEALTH INSTRUMENT TECHNICIAN APPRENTICE OVER &ABOVE THOSE USUALLY INCLD W THE OFFICE VISIT/OTH SER RENDERED (LIST DRUG,TRAYS,SUPP,OR MATERIAL PROVID) 3 DoD DRESSING CHANGE (FOR OTHER THAN GODWIN) UNDER ANESTHESIA (OTHER THAN LOCAL) 3 DoD DRESSING CHANGE (FOR OTHER THAN GODWIN) UNDER ANESTHESIA (OTHER THAN LOCAL) 2 DoD NEUROPLASTY AND/OR TRANSPOSITION; ULNAR NERVE AT ELBOW 2 DoD SKIN TEST; TUBERCULOSIS, JEANINE TEST 2 DoD PHYSICAL THERAPY RE-EVALUATION 2 DoD THERAPEUTIC PROCEDURE, 1 OR MORE AREAS, EACH 15 MINUTES; THERAPEUTIC EXERCISES TO DEVELOP STRENGTH AND ENDURANCE, RANGE OF MOTION AND FLEXIBILITY 2 DoD THERAPEUTIC PROCEDURE, 1 OR MORE AREAS, EACH 15 MINUTES; THERAPEUTIC EXERCISES TO DEVELOP STRENGTH AND ENDURANCE, RANGE OF MOTION AND FLEXIBILITY 2 DoD THERAPEUTIC PROCEDURE, 1 OR MORE AREAS, EACH 15 MINUTES; THERAPEUTIC EXERCISES TO DEVELOP STRENGTH AND ENDURANCE, RANGE OF MOTION AND FLEXIBILITY 2 DoD THERAPEUTIC PROCEDURE, 1 OR MORE AREAS, EACH 15 MINUTES; THERAPEUTIC EXERCISES TO DEVELOP STRENGTH AND ENDURANCE, RANGE OF MOTION AND FLEXIBILITY 2 DoD THERAPEUTIC PROCEDURE, 1 OR MORE AREAS, EACH 15 MINUTES; THERAPEUTIC EXERCISES TO DEVELOP STRENGTH AND ENDURANCE, RANGE OF MOTION AND FLEXIBILITY 2 DoD THERAPEUTIC PROCEDURE, 1 OR MORE AREAS, EACH 15 MINUTES; THERAPEUTIC EXERCISES TO DEVELOP STRENGTH AND ENDURANCE, RANGE OF MOTION AND FLEXIBILITY 2 DoD PHYSICAL THERAPY RE-EVALUATION 2 DoD THERAPEUTIC PROCEDURE, 1 OR MORE AREAS, EACH 15 MINUTES; THERAPEUTIC EXERCISES TO DEVELOP STRENGTH AND ENDURANCE, RANGE OF MOTION AND FLEXIBILITY 2 DoD OPHTHALMOLOGICAL SERVICES: MEDICAL EXAMINATION AND EVALUATION, WITH INITIATION OR CONTINUATION OF DIAGNOSTIC AND TREATMENT PROGRAM; INTERMEDIATE, ESTABLISHED PATIENT 5 DoD PRESCRIPTION OF OPTICAL AND PHYSICAL CHARACTERISTICS OF AND FITTING OF CONTACT LENS, WITH MEDICAL SUPERVISION OF ADAPTATION; CORNEAL LENS, BOTH EYES, EXCEPT FOR APHAKIA 5 DoD DETERMINATION OF REFRACTIVE STATE 5 DoD DETERMINATION OF REFRACTIVE STATE 5 DoD OPHTHALMOLOGICAL SERVICES: MEDICAL EXAMINATION AND EVALUATION, WITH INITIATION OR CONTINUATION OF DIAGNOSTIC AND TREATMENT PROGRAM; INTERMEDIATE, ESTABLISHED PATIENT 5 DoD SUPPLY OF SPECTACLES, EXCEPT PROSTHESIS FOR APHAKIA AND LOW VISION AIDS 4 DoD PURE TONE AUDIOMETRY (THRESHOLD); AIR ONLY 4 DoD IMMUNIZATION ADMINISTRATION (INCLUDES PERCUTANEOUS, INTRADERMAL, SUBCUTANEOUS, OR INTRAMUSCULAR INJECTIONS); 1 VACCINE (SINGLE OR COMBINATION VACCINE/TOXOID) 4 DoD EDUCATIONAL SUPPLIES, SUCH BOOKS, TAPES, AND PAMPHLETS, FOR THE PATIENT'S EDUCATION AT COST TO PHYSICIAN OR OTHER QUALIFIED HEALTH INSTRUMENT TECHNICIAN APPRENTICE 4 DoD APPLICATION OF A MODALITY TO 1 OR MORE AREAS; ULTRASOUND, EACH 15 MINUTES 3 DoD MANUAL THERAPY TECHNIQUES (EG, MOBILIZATION/ MANIPULATION, MANUAL LYMPHATIC DRAINAGE, MANUAL TRACTION), 1 OR MORE REGIONS, EACH 15 MINUTES 3 DoD APPLICATION OF A MODALITY TO 1 OR MORE AREAS; ULTRASOUND, EACH 15 MINUTES 3 DoD MANUAL THERAPY TECHNIQUES (EG, MOBILIZATION/ MANIPULATION, MANUAL LYMPHATIC DRAINAGE, MANUAL TRACTION), 1 OR MORE REGIONS, EACH 15 MINUTES 3 DoD PRESCRIPTION OF OPTICAL AND PHYSICAL CHARACTERISTICS OF AND FITTING OF CONTACT LENS, WITH MEDICAL SUPERVISION OF ADAPTATION; CORNEAL LENS, BOTH EYES, EXCEPT FOR APHAKIA 3 DoD ARTHROCENTESIS, ASPIRATION AND/OR INJECTION, INTERMEDIATE JOINT OR BURSA (EG, TEMPOROMANDIBULAR, ACROMIOCLAVICULAR, WRIST, ELBOW OR ANKLE, OLECRANON BURSA); WITHOUT ULTRASOUND GUIDANCE 3 DoD FITTING OF CONTACT LENS FOR TREATMENT OF DISEASE, INCLUDING SUPPLY OF LENS 2 DoD PURE TONE AUDIOMETRY (THRESHOLD); AIR ONLY 1 DoD SKIN TEST; TUBERCULOSIS, INTRADERMAL 1 DoD DETERMINATION OF REFRACTIVE STATE 1 DoD FITTING OF CONTACT LENS FOR TREATMENT OF DISEASE, INCLUDING SUPPLY OF LENS 1 DoD PRESCRIPTION OF OPTICAL AND PHYSICAL CHARACTERISTICS OF AND FITTING OF CONTACT LENS, WITH MEDICAL SUPERVISION OF ADAPTATION; CORNEAL LENS, BOTH EYES, EXCEPT FOR APHAKIA 1 DoD DETERMINATION OF REFRACTIVE STATE 1 DoD BIOPSY, SOFT TISSUE OF BACK OR FLANK; SUPERFICIAL 1 DoD FITTING OF SPECTACLES, EXCEPT FOR APHAKIA; MONOFOCAL 0 DoD FITTING OF SPECTACLES, EXCEPT FOR APHAKIA; MONOFOCAL 0 DoD SKIN TEST; TUBERCULOSIS, INTRADERMAL 0 DoD Social History Combined list of available smoking, tobacco, and other social history from Department of Defense and Veterans Affairs facilities. Social History Type Response Date Comment Sour e Tobacco smoking status NHIS VA-TOBACCO FORMER USER 11/18/2023 [facility] [place] History of tobacco use VA-TOBACCO QUIT 15 YRS OR MORE 11/18/2023 [facility] History of tobacco use VA-TOBACCO FORMER USER 08/01/2022 [facility] [place] History of tobacco use VA-TOBACCO QUIT 15 YRS OR MORE 2021 [facility] [place] History of tobacco use VA-TOBACCO FORMER USER 07/12/2020 [facility] History of tobacco use VA-TOBACCO NEVER USED 09/23/2019 [facility] History of tobacco use VA-TOBACCO QUIT 15 YRS OR MORE 08/26/2019 [facility] History of tobacco use VA-TOBACCO FORMER USER 01/07/2019 [facility] History of tobacco use VA-TOBACCO NEVER USED 07/16/2018 [facility] History of tobacco use NON-TOBACCO USER 07/16/2017 [facility] This section is an empty social history section. DoD Plan of Care List of future care activities from Department of Veterans Affairs facilities. Additional future care activities may be listed in the Assessment and Plan section. Date/Time Care Activity Care Activity Detail Facili ty 05/15/2025 AMBULATORY - MEDICINE AMBULATORY - MEDICI NE [facility] [place]
== END 2025-01-03 14:55 | disposition home or self-care (01) ==
LOC: HO.HOS 14:11
PROVIDERS: PCP Internal Medicine; Visit Provider Orthopaedic Surgery
DX: S83.241A Other tear of medial meniscus, current injury, right knee, initial encounter (principal)
CPT/HCPCS: 99213; G2211

== ENCOUNTER → 2025-01-03 14:11 | Outpatient (BNVA) | payer OTHER, SELFPAY | PROVIDERS: PCP Internal Medicine; Visit Provider Orthopaedic Surgery | DX: S83.241A Other tear of medial meniscus, current injury, right knee, initial encounter (principal) | CPT/HCPCS: 99212 ==

== ENCOUNTER 2025-02-20 06:01 | Day surgery (SDC) | payer OTHER, SELFPAY ==
[2025-02-06 08:53] VITALS: BMI 31.9
--- OUTSIDE RECORDS SUMMARY | 2025-02-13 16:36 | XMS_ITS ---
Author Name [facility] [place] [facility] [place] Address [address] [place] [address] Care Team Providers Care Acquisitions Assistant Name Role Phone ИРИНА BAILEY Primary Care [...] PRESCRIPT ION HDHP Aug 31, 2022 [id number] [id number] [phone] DADA BARRON PATIENT [facility] 2018 PRIME Aug 31, 2017 [id number] [phone] DADA BARRON PATIENT [facility] 2024 PRIME RETIR ED Aug 31, 2024 PRIME RETIRED [id number] DADA BARRON PATIENT [facility] JOY E Aug 31, 2022 [id number] [phone] DADA BARRON PATIENT Selected Encounter This section includes the information on record at [place] for the Encounter. Date/Time Encounter Type Encounter Description Reason Pro vider Source Nov 24, 2024 11:04 AM Outpatient Encounter COMMUNITY CARE CONSULT IHE Encounter Template Text not used by [place] Plan of Treatment: Future Appointments (+ 6 months) and Future Tests (+/- 45 days) The Plan of Treatment section includes future care activities for the patient from all [place] [facility]. This section includes future appointments and future orders which are active, pending or scheduled. Future Appointments This section includes appointments that were scheduled to occur 6 months from the date of the Encounter, up to a maximum of 20 appointments. The data comes from all [place] treatment facilities. Appointment Date/Time Appointment Type Appointme nt Facility Name Dec 15, 2024 09:00 AM AMBULATORY - MEDICINE [facility] [place] [facility] January 27, 2025 01:00 PM AMBULATORY - MEDICINE [facility] [place] [facility] May 15, 2025 01:30 PM AMBULATORY - MEDICINE [facility] [place] [facility] Social History: Smoking Status (Most current) and Tobacco Use (All prior to encounter date) This section includes the most current, and the historical, smoking and tobacco- related health factors from the [place] facility where the Encounter took place. Current Smoking Status This section includes the most current smoking, or tobacco-related health factor, from the [place] facility where the Encounter took place. Date/Time Current Smoking Status Comment Kye ity Nov 18, 2023 11:00 AM VA-TOBACCO FORMER USER [place] [facility] [place] [facility] Tobacco Use History This section includes a history of the smoking, or tobacco-related health factors, that were collected on or before the date of the Encounter. The data comes from the [place] facility where the Encounter took place. Date/Time Smoking Status/Tobacco Use Comment F acility Nov 18, 2023 11:00 AM VA-TOBACCO QUIT 15 YRS OR MORE [facility] [place] [facility] Aug 01, 2022 10:30 AM VA-TOBACCO FORMER USER [facility] [place] [facility] Aug 01, 2022 10:30 AM VA-TOBACCO QUIT 15 YRS OR MORE [facility] [place] [facility] 2021 09:56 AM VA-TOBACCO FORMER USER [facility] [place] [facility] 2021 09:56 AM VA-TOBACCO QUIT 15 YRS OR MORE [facility] [place] [facility] Encounter Notes: All associated encounter notes This section contains the clinical notes associated to the Encounter. Date/Time Encounter Note(s) Provider Source Nov 24, 2024 02:07 PM ADDENDUM: LOCAL TITLE: Addendum STANDARD TITLE: ADDENDUM DATE OF NOTE: NOV 24, 2024@14:07:46 ENTRY DATE: NOV 24, 2024@14:07:47 AUTHOR: CAMILLE LABOY COSIGNER: URGENCY: STATUS: COMPLETED done. please sign if agree. thank you. /kalani Laboy RN, BSN Primary Care Signed: 11/24/2024 14:08 Receipt Acknowledged By: 11/24/2024 14:12 /presley/ Gilbert Torres MD Staff Physician ====== --- Original Document --- 11/24/24 COMMUNITY CARE-REQUEST FOR SERVICE NOTE: Request for Services (RFS) documentation has been sent for scanning to [facility] Emergency Department Consult: COMMUNITY CARE-PULMONARY [facility] [address] [place] [address] [place] [address] [facility] p [phone] F [phone] Dx: asthma J45.909 appt on 11/23/2024 alert to PACT to enter CC pulmonary consult. Thank you /kalani LAST [facility] RN Signed: 11/24/2024 11:06 Receipt Acknowledged By: 11/24/2024 14:08 /presley/ Camille Laboy RN, BSN Primary Care 11/24/2024 ADDENDUM STATUS: COMPLETED appt time of 9:15 AM /kalani LAST [facility] RN Signed: 11/24/2024 11:07 11/24/2024 ADDENDUM STATUS: COMPLETED Signed. /presley/ Gilbert Torres MD Staff Physician Signed: 11/24/2024 14:12 CAMILLE LABOY [facility] [place] [facility] Nov 24, 2024 11:04 AM NONVA NOTE: LOCAL TITLE: COMMUNITY CARE-REQUEST FOR SERVICE NOTE STANDARD TITLE: NONVA NOTE DATE OF NOTE: NOV 24, 2024@11:04 ENTRY DATE: NOV 24, 2024@11:04:21 AUTHOR: COLLETTE LAST EXP COSIGNER: URGENCY: STATUS: COMPLETED COMMUNITY CARE-REQUEST FOR SERVICE NOTE Has ADDENDA Request for Services (RFS) documentation has been sent for scanning to [employer] [facility] Consult: [facility]-PULMON[facility] [address] [place] [address] [place] [address] [facility] p [phone] F [phone] Dx: asthma J45.909 appt on 11/23/2024 alert to PACT to enter CC pulmonary consult. Thank you /presley/ COLLETTE LAST [facility] Care RN Signed: 11/24/2024 11:06 Receipt Acknowledged By: 11/24/2024 14:08 /presley/ Camille Laboy RN, BSN Primary Care 11/24/2024 ADDENDUM STATUS: COMPLETED appt time of 9:15 AM /kalani LAST [facility] RN Signed: 11/24/2024 11:07 11/24/2024 ADDENDUM STATUS: COMPLETED done. please sign if agree. thank you. /kalani Laboy RN, BSN Primary Care Signed: 11/24/2024 14:08 Receipt Acknowledged By: 11/24/2024 14:12 /presley/ Gilbert Torres MD Staff Physician 11/24/2024 ADDENDUM STATUS: COMPLETED Signed. /presley/ Gilbert Torres MD Staff Physician Signed: 11/24/2024 14:12 COLLETTE LAST [facility] [place] [facility]
[2025-02-20] VITALS (9 sets, daily range): BP systolic 133–148; BP diastolic 82–90; PULSE 64–77; RESP 14–18; TEMP 36.2–36.9; O2SAT 93–100
[2025-02-20] MEDS: Lactated Ringers 1,000 ML 80 ML IVCONT (07:02)
--- NOTE | 2025-02-20 07:24 | HO.ANESPROP2 ---
HPI - Anesthesia Eval Consult details Narrative: 59 yo M presenting for right knee arthroscopy PMFSH Active Problems Active Problems: All Active Problems Tear of medial meniscus of right knee (Acute) Left knee pain (Acute) Right knee pain (Acute) Pleural thickening (Acute) Asthma (Acute) COPD (chronic obstructive pulmonary disease) (Acute) Pulmonary nodule (Acute) Dyspnea (Acute) Past Medical History Medical History (Updated 02/06/25 @ 08:52 by Olga Kearns RN) Skin cancer PONV (postoperative nausea and vomiting) Migraine Elevated cholesterol HTN (hypertension) Asthma-COPD overlap syndrome Pulmonary nodule Family History Family history of problems with anesthesia: No Surgical History Surgical History (Updated 02/06/25 @ 08:51 by Olga Kearns RN) Hx of appendectomy History of surgery on upper extremity Hx of arthroscopy of shoulder H/O colonoscopy Hx of knee surgery History of Problems with Anesthesia: Yes (PONV) Social History Social History Patient Tobacco Use Status: Former Tobacco user Tobacco use type: Cigarette Cigarette Packs Per Day: 1 Years Smoked: 5 Use of substances other than those prescribed or required for medical reasons: No Have you been hit, kicked, punched, or otherwise hurt by someone within the past year? 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 Meds Allergies Allergy/AdvReac Type Severity Reaction Status Date / Time amlodipine AdvReac Intermediate edema of Verified 02/06/25 08:55 legs lisinopril AdvReac Intermediate Cough Verified 02/03/25 08:20 Active Medications: Current Medications Lactated Ringer's (Lr) 1,000 mls @ 80 mls/hr IVCONT .[id number] TOM Last Admin: 02/20/25 07:02 Dose: 80 mls/hr Home Medications ?Medication ?Instructions ?Recorded ?Confirmed ?Last Taken ?Type atorvastatin 20 mg tablet 10 mg PO BEDTIME 09/02/23 02/03/25 Unknown History magnesium oxide 420 mg tablet 420 mg PO DAILY 09/02/23 02/03/25 Unknown History metoprolol succinate 25 mg 25 mg PO BID 05/17/24 02/03/25 Unknown History tablet,extended release 24 hr losartan 25 mg tablet 25 mg PO BEDTIME 09/13/24 02/06/25 Unknown History Exam Exam Date and Time: 02/20/25 0722 Height,Weight and Vital Signs: Height 5 ft 10 in Weight 100.698 kg Last Vital Signs Temp 97.9 F 02/20/25 06:55 Pulse 77 02/20/25 06:55 Resp 16 02/20/25 06:55 BP 134/87 02/20/25 06:55 Pulse Ox 95 02/20/25 06:55 O2 Del Method Room Air 02/20/25 06:55 Airway Mallampati Class: I TM Dist: >3cm Neck ROM: Full Loose/Missing/Broken Teeth: No (patient denies any loose or broken teeth) Heart: S1S2 Lungs: CTAB Assessment and Plan Assessment Anesthesia Assessment: Anesthesia Plan Discussed and Chart Reviewed Final Anesthetic Review Family History of Problems with Anesthesia: No History of Problems with Anesthesia: Yes (PONV) NPO: Yes ASA Class: II Final Preanesthetic Review: No Changes in Pt Med Stat, Meds/Allgs Chart Reviewed, Consent Obtained/Reviewed and Anes Risks/Benef Reviewed Patient Risk: Low Procedure Risk: Low Anesthetic Plan Anesthetic Plan: GA and Agree w/ Assess. and Plan Disposition: Standard PACU
[2025-02-20] MEDS: ceFAZolin Sodium/Dextrose,Iso 2 GM/50 ML PIGGYBACK IV (07:40)
[2025-02-20] MEDS: fentaNYL citrate/PF 100 MCG/2 ML VIAL 50 MCG IVPUSH ×2 (08:37→08:53)
--- NOTE | 2025-02-20 08:40 | PM.OP ---
Brief Operative Note Date of Service: 02/20/25 Pre-op diagnosis: Right knee medial meniscus tear, right knee lateral meniscus tear, right knee degenerative joint disease Post-op diagnosis: same Procedure: Right knee arthroscopic partial medial and lateral meniscectomies, right knee arthroscopic chondroplasty of the undersurface of the patella as well as the medial femoral condyle Implants: None Surgeon: Jack Lei MD Anesthesia: GLMA Was an Dry Placer Machine Operator used for this Procedure?: No Estimated blood loss (mL): 10 Pathology: none sent Condition: stable Disposition: PACU
--- NOTE | 2025-02-20 08:41 | W.PM.OPN ---
Operative Note Operative Note Date of Service: 02/20/25 Narrative: After the patient was identified as Kvng Cosme and his right knee was initialed by myself they were brought to the operating room where general anesthesia was induced by the anesthesiologist in routine fashion. The patient was given 2 g of IV Ancef for infection prophylaxis. A formal time-out was completed. The patient's right lower extremity was prepped and draped in sterile fashion. Marcaine with epinephrine was injected into the planned incision sites as well as their right knee joint. A # 11 scalpel blade was used to make an anterolateral portal 1 cm proximal to the joint line and 1 cm lateral to the patellar tendon. Blunt trocar technique was used into the suprapatellar pouch with the knee in extension. Diagnostic arthroscopy showed multiple bands of thickened plica which would be excised at the end of the procedure. There were no loose bodies or abnormalities found in either the medial or lateral gutters. There were diffuse grades 1 and 2 degenerative changes of the undersurface of the patella as well as grades 1 and 2 degenerative changes of the trochlear groove. The patient's knee was flexed to 45 degrees and a valgus force was placed upon it. The medial compartment was entered. An anteromedial portal was made 1 cm proximal to the joint line and 1 cm medial to the patellar tendon. Probing of the medial meniscus showed a radial tear of the posterior horn. A partial medial meniscectomy was performed using the arthroscopic shaver. Following the partial meniscectomy the remainder of the meniscus tissue was stable. There were diffuse grades 2 and 3 degenerative changes of the medial femoral condyle as well as diffuse grades 1 and 2 degenerative changes of the medial tibial plateau. The articular surface of the medial femoral condyle was made smooth using the arthroscopic shaver. The articular surface of the medial tibial plateau was already smooth so no chondroplasty was indicated. The patient's knee was then placed into a neutral position. There was no injury to the anterior cruciate ligament. The patient's knee was then placed into the figure of 4 position and the lateral compartment was entered. There were minimal degenerative changes of the lateral femoral condyle and lateral tibial plateau. There was a radial tear of the anterior horn of the lateral meniscus. A partial lateral meniscectomy was performed using the arthroscopic shaver. Following the partial meniscectomy the remainder of the meniscus tissue was stable. The patient's knee was once again brought into extension and the suprapatellar pouch was entered. The arthroscopic shaver and the ArthroCare Wand were used to excise the thickened bands of plica. The undersurface of the patella was then made smooth using the arthroscopic shaver. The articular surface of the trochlear groove was already smooth so no chondroplasty was indicated. The knee joint was irrigated and then drained. All arthroscopic instruments were removed. The 2 portals were closed with 3-0 nylon interrupted suture. The knee joint was injected with Marcaine. Dry sterile dressing and Uriel bandages were placed over the patient's knee. The patient was awoken and extubated in the operating room. They were transferred to the recovery room in stable condition.
[2025-02-20] MEDS: cefTRIAXone sodium 1 GM VIAL IVPUSH (08:44)
== END 2025-02-20 09:36 | disposition home or self-care (01) ==
PROVIDERS: PCP Internal Medicine; Visit Provider Orthopaedic Surgery
PROC: (CPT 29870; principal; 2025-02-20 07:30)
DX: M23.211 Derangement of anterior horn of medial meniscus due to old tear or injury, right knee (principal); M23.241 Derangement of anterior horn of lateral meniscus due to old tear or injury, right knee; M67.51 Plica syndrome, right knee; M25.561 Pain in right knee; M23.51 Chronic instability of knee, right knee; M17.11 Unilateral primary osteoarthritis, right knee; J44.9 Chronic obstructive pulmonary disease, unspecified; I10 Essential (primary) hypertension; E78.00 Pure hypercholesterolemia, unspecified; Z79.51 Long term (current) use of inhaled steroids; Z79.899 Other long term (current) drug therapy; Z98.890 Other specified postprocedural states; Z87.891 Personal history of nicotine dependence
CPT/HCPCS: 29880; 29876; J0171; J0690; J0696; J1100; J1885; J2003; J2250; J2405; J2704; J2795; J3010

== ENCOUNTER → 2025-02-20 06:01 | Outpatient (BNV) | payer OTHER, SELFPAY | PROVIDERS: PCP Internal Medicine; Visit Provider Orthopaedic Surgery | DX: S83.241A Other tear of medial meniscus, current injury, right knee, initial encounter (principal); S83.281A Other tear of lateral meniscus, current injury, right knee, initial encounter | CPT/HCPCS: 29880 ==

== ENCOUNTER 2025-03-07 09:02 | Outpatient (AMB) | payer OTHER, SELFPAY ==
--- NOTE | 2025-03-07 09:08 | MHC.OFFVIS ---
Intake Visit Reasons: PO-Rt Knee 02/20/25 Intake Note: Kvng is a 59 year old male who presents today for a post op appointment s/p Right knee arthroscopic partial medial and lateral meniscectomies, right knee arthroscopic chondroplasty of the undersurface of the patella as well as the medial femoral condyle 02/20/25 Patient reports he is doing well. He mentions that he is having little to no pain at the moment. Allergies amlodipine Adverse Reaction (Intermediate, Verified 03/07/25 09:11) edema of legs lisinopril Adverse Reaction (Intermediate, Verified 03/07/25 09:11) Cough HPI HPI PO-Rt Knee 02/20/25 DR: Details: Mr. Cosme is a 59 year old male who presents to the office today for followup s/p right knee arthroscopy for partial medial and lateral menisectomy. Overall the patient is doing very well with little pain. [facility] Medical History (Updated 03/07/25 @ 09:38 by Blessing Cameron PA-C) Skin cancer PONV (postoperative nausea and vomiting) Migraine Elevated cholesterol HTN (hypertension) Asthma-COPD overlap syndrome Pulmonary nodule Surgical History (Updated 03/07/25 @ 09:38 by Blessing Cameron PA-C) Hx of appendectomy History of surgery on upper extremity Hx of arthroscopy of shoulder H/O colonoscopy Hx of knee surgery Social History Are you a primary customer care assistant to a significant other at home: No Do you presently have visiting nurse or other home services: No Patient Tobacco Use Status: Former Tobacco user Tobacco use type: Cigarette Cigarette Packs Per Day: 1 Years Smoked: 5 Current occupational status: employed 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 Sutures are intact. No surrounding erythema or drainage. No signs of infection. Range of motion 0-110 degrees. NVI Assessment & Plan Assessment & Plan (1) Tear of medial meniscus of right knee: Code(s): S83.241A - Other tear of medial meniscus, current injury, right knee, initial encounter Category: Medical (2) Tear of lateral meniscus of right knee: Code(s): S83.281A - Other tear of lateral meniscus, current injury, right knee, initial encounter Category: Medical (3) Status post arthroscopy of right knee: Code(s): Z98.890 - Other specified postprocedural states Category: Surgical Plan Mr. Cosme is a 59 year old male who presents to the office today for followup s/p right knee arthroscopy for partial medial and lateral menisectomy. Overall the patient is doing very well with little pain. While the office today, sutures removed and Steri-Strips were applied. We discussed the role of physical therapy. However, the patient is able to perform full range of motion in his experiencing little to no pain. He can resume back to his normal activities and follow up PRN, sooner if needed. Coding Level of Care Code Global (81861) Diagnoses Tear of medial meniscus of right knee S83.241A Tear of lateral meniscus of right knee S83.281A Status post arthroscopy of right knee Z98.890
--- OUTSIDE RECORDS SUMMARY | 2025-03-07 09:27 | XMS_ITS | Data Portability ---
Author Organization [place] - [facility], Allergy Address [address] [place] [id number] Care Team Providers Care Production Support Specialist Name Role Phone JERICHO TORRES Primary Care Provider [phone] Assessment Encounter Date Assessment Date Assessment LastModified [...] for June 102023 025 [email or web address] [facility] [place], [address] [facility], [facility] [address], [place], [address], 07/12/2024 15:09:15 Medication Orders None recorded. Patient TargetsNo targets recorded. Patient InstructionsNo instructions recorded. Reason for Referral None Reported. Problems Name Problem SNOMED Code Status Onset Date Resolution Date Notes Provider Name and Address Organization Details Recorded Time Mass of neck 901111603 Active 2022 Localized swelling, mass and lump, neck; Note: Date Diagnosed: 09/08/2022 2:30 PM (R22.1) Not Available [facility] 4 02:43:36 Neck swelling 938227121 Active 2022 Localized swelling, mass and lump, neck; Note: Date Diagnosed: 09/08/2022 2:30 PM (R22.1) Not Available [facility] 4 02:43:36 Problem Notes None recorded. Medical Equipment None Reported. Allergies No known drug allergies Medications Name Sig Start Date Stop Date Status Note LastModified by Organization Details LastModified Time magnesium oxide 420 mg tablet active Not Available Not Available No t Available atorvasta tin 10 mg tablet active Medicati on ID: [id number] B rand Name: atorvast atin Sen d Method: E-Prescr ibed Sub s Allowed: subs OK Medic ationGen ericName : atorvast atin Not Available Not Available Not Available amlodipin e 2.5 mg tablet 07/12 completed Medicati on ID: [id number] B rand Name: amlodipi ne Send Method: [...] Updated DateTime 07/12/2024 177.8 cm 30.8 kg/m2 52787.36 g Cristela Bosch [place] - [facility] 07/12/2024 14:58:35 Social History None recorded. Functional Status None recorded. Mental Status None recorded. Family History Nothing Reported. Medical History No medical history recorded. Past Encounters Encounter ID Performer Location Encounter Start Date Encounter Closed Date Diagnosis/Indication Diagnosis SNOMED-CT Code Diagnosis ICD10 Code Diagnosis Note [id number] LUKAS NAQVI MD [facility] [address] [address] 07/12/2024 14:41:03 07/12/2024 15:09:15 Neck swelling 560226349 R22.1 Health Concerns Section Related Observation LastModified by Organization Detai ls LastModified Time None Recorded Concern Status LastModified by Organization Details LastModified Time None Recorded Advance Directives Directive None Recorded Payers Insurance Date Sequence Insurance Name Policy Number Policy Rust Covered Member ID Rust Member ID Guarantor Name 07/19/2024 [employer] [facility] [place] [facility] Kvng Dickerson [id number] Kvng Dickerson Notes Date Note Type Note Provider Name and Address Organization Details Recorded Time 07/12/2024 text/html 59-year-old male presents today for evaluation of left-sided dermal nodules. He has had these present since at least 2020, and we have been monitoring them for about 2 years without any significant change. LUKAS NAQVI MD [address] [place] [address], [phone], [facility] - [facility] 07/13/2024 10:52:35
== END 2025-03-07 09:36 | disposition home or self-care (01) ==
LOC: HO.HOS 09:07
PROVIDERS: PCP Internal Medicine; Referring Provider Physician Assistant; Visit Provider Physician Assistant
DX: S83.241A Other tear of medial meniscus, current injury, right knee, initial encounter (principal); S83.281A Other tear of lateral meniscus, current injury, right knee, initial encounter; Z98.890 Other specified postprocedural states
CPT/HCPCS: 99024

== ENCOUNTER → 2025-03-07 09:02 | Outpatient (BNVA) | payer OTHER, SELFPAY | PROVIDERS: PCP Internal Medicine; Visit Provider Physician Assistant | DX: S83.241A Other tear of medial meniscus, current injury, right knee, initial encounter (principal); S83.281A Other tear of lateral meniscus, current injury, right knee, initial encounter; Z98.890 Other specified postprocedural states | CPT/HCPCS: 99212 ==

== ENCOUNTER 2025-04-25 10:39 | Outpatient (AMB) | payer OTHER, SELFPAY ==
--- NOTE | 2025-04-25 10:41 | MHC.OFFVIS ---
Vital Signs 04/25/25 10:45 Height 5 ft 10 in Weight 215 lb BMI 30.8 Intake Visit Reasons: Bilateral knee pains Intake Note: Kvng is a 59 year old male who presents with complaints of bilateral knee pains. He describes his pains as sharp in nature. He did undergo right knee arthroscopic surgery earlier this year. That surgery gave him temporary relief. He has failed the last 3 months of conservative treatment which has included Tylenol, anti-inflammatory medicines, physical therapy exercises and a home exercise program. At this point his bilateral knee pains are interfering with his activities of daily living and his ability to sleep well through the night. He has had cortisone injections in the past which gave him no relief. He has not had a viscosupplementation injection. Wishes to hold off on total knee replacement surgery for as long as possible. Allergies amlodipine Adverse Reaction (Intermediate, Verified 04/25/25 10:45) edema of legs lisinopril Adverse Reaction (Intermediate, Verified 04/25/25 10:45) Cough Medication List - Last Reconciled 04/25/25 by Jack Lei MD albuterol sulfate 2.5 mg (3 mL) inhalation Q4-6H PRN albuterol sulfate 90 mcg/actuation 2 puffs inhalation Q4-6H PRN atorvastatin 10 mg PO BEDTIME fluticasone propion-salmeterol 250-50 mcg/dose (Wixela Inhub) 1 inh inhalation Q12H losartan 25 mg PO BEDTIME magnesium oxide 420 mg PO DAILY metoprolol succinate ER 25 mg PO BID PFSH Medical History (Updated 04/25/25 @ 11:13 by Jack Lei MD) Skin cancer PONV (postoperative nausea and vomiting) Migraine Elevated cholesterol HTN (hypertension) Asthma-COPD overlap syndrome Pulmonary nodule Surgical History (Updated 03/07/25 @ 09:38 by Blessing Cameron PA-C) Hx of appendectomy History of surgery on upper extremity Hx of arthroscopy of shoulder H/O colonoscopy Hx of knee surgery Social History Are you a primary ambulatory care to a significant other at home: No Do you presently have visiting nurse or other home services: No Patient Tobacco Use Status: Former Tobacco user Tobacco use type: Cigarette Cigarette Packs Per Day: 1 Years Smoked: 5 Current occupational status: employed 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, 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 Exam Vital Signs: BMI result Body Mass Index 30.8 Const Other: Well-nourished well-developed very friendly male awake alert and oriented x3 in no acute distress Extrem Other: Bilateral lower extremity examination shows good capillary refill, no skin lesions noted, normal sensation light touch Bilateral knee examination shows minimal effusions, palpable crepitus with range of motion, pain with range of motion, no instability Results Reviewed Results Reviewed: X-rays of the patient's bilateral knee show joint space narrowing, subchondral sclerosis, no acute bony abnormalities Assessment & Plan Assessment & Plan (1) Osteoarthritis of left knee: Code(s): M17.12 - Unilateral primary osteoarthritis, left knee Category: Medical (2) Osteoarthritis of right knee: Code(s): M17.11 - Unilateral primary osteoarthritis, right knee Category: Medical Plan Mr. Cosme presents with bilateral knee pains due to osteoarthritis. I had a lengthy discussion with the patient regarding the treatment options. He wishes to hold off on further surgery if at all possible. I agree with this plan. Thus, I will see if his insurance company will cover a viscosupplementation injection, such as Durolane, for both of his knees. I will see him back in 2 months' time. Feel free to call me at any time should questions regarding his orthopedic management arise. I spent 20 minutes in reviewing the patient's records and imaging studies, seeing the patient and documenting in the medical record. Coding Level of Care Code Est Pt Level 3 (35608) Complex EM visit Add On G2211 Diagnoses Osteoarthritis of left knee M17.12 Osteoarthritis of right knee M17.11
[2025-04-25 10:45] VITALS: BMI 30.8
--- OUTSIDE RECORDS SUMMARY | 2025-04-25 11:31 | XMS_ITS | Clinical Summary ---
Author Organization [facility] Address [address] [place] [phone] Phone Care Team Providers Care School Secretary Name Role Phone Gilbert Torres MD Primary Care Provider + Allergies Active Allergy Reactions Criticality Noted Date Comments Lisinopril Cough Medium 09/12/2022 Medications atorvastatin (LIPITOR) 20 MG tablet TAKE ONE-HALF TABLET BY MOUTH AT BEDTIME FOR CHOLESTEROL 1 Active lisinopril (PRINIVIL,ZESTRI L) 10 MG tablet TAKE ONE TABLET BY MOUTH ONCE DAILY TO CONTROL BLOOD PRESSURE 1 Active gatifloxacin (ZYMAXID) 0.5 % Drop Place 1 drop into the left eye 2 (two) times a day. To start three days prior the procedure 5 mL 3 2 Active prednisoLONE acetate (PRED FORTE) 1 % ophthalmic suspension Place 1 drop into the left eye 4 (four) times a day. To start following procedure 5 mL 3 2 Active LORazepam (ATIVAN) 1 MG tablet Take 1 tablet PO 20 minutes prior to procedure 1 tablet 2 2 Active HYDROcodone-acet aminophen (NORCO) 5-325 mg per tablet Take 1-2 tablets PO q6h as needed for pain Partial fill ok 10 tablet 2 Active prednisoLONE acetate (PRED FORTE) 1 % ophthalmic suspensionIndica tions:Unstable keratoconus of right eye Place 1 drop into the right eye 4 (four) times a day. 10 mL 2 2 Active diclofenac sodium (VOLTAREN) 75 MG EC tablet Take 1 tablet (75 mg total) by mouth 2 (two) times a day. 60 tablet 1 5 Active Hospital, Clinic, or Other Facility Administered Medication Ordered Dose Route Frequency Start Date End Date Status lidocaine (XYLOCAINE) 1% injection 2 mLIndications:Primar y localized osteoarthritis of left knee 2 mL See Adm Inst See admin instructions 03/28/2024 Active BUPivacaine HCl (MARCAINE) 0.25% injection 2 mLIndications:Primar y localized osteoarthritis of left knee 2 mL See Adm Inst See admin instructions 03/28/2024 Active triamcinolone acetonide (KENALOG-40) 40 mg/mL injection 80 mgIndications:Primar y localized osteoarthritis of left knee 80 mg See Adm Inst See admin instructions 03/28/2024 Active Social History Tobacco Use Types Packs/Day Years Used Date Smoking Tobacco: Former Smokeless Tobacco: Never Alcohol Use Standard Drinks/Week Comments Not Asked 1 (1 standard drink = 0.6 oz pur e alcohol) Education Answer Date Recorded Are you interested in more education? Not on scar e 12/27/2022 Are you concerned about learning? Not on file 12/27/2022 No 12/27/2022 No 12/27/2022 Digital Access Answer Date Recorded No 01/21/2023 No 01/21/2023 Reliable internet access at home? Not on file 01/21/2023 Device with a working camera? Not on file Sex and Gender Information Value Date Recorded Sex Assigned at Male 01/03/2022 6:51 PM EDT Legal Sex Male 9:56 AM EST Gender Identity Male 01/03/2022 6:51 PM EDT Sexual Orientation Straight 01/03/2022 6: 51 PM EDT Plan of Treatment Health Maintenance Due Date Last Done Comments Adult Td,Tdap Booster 1964 LIPID PANEL 1964 DEPRESSION SCREENING 1976 SMOKING Hx and SMOKELESS TOB ACCO SCREENING 1977 HEPATITIS C SCREENING 1982 HIV ONE-TIME SCREENING (18-6 5 YEARS) 1982 COLOGUARD 2009 COLONOSCOPY 2009 COLORECTAL CANCER SCREENING 2009 FIT TEST 2009 FOBT 2009 SIGMOIDOSCOPY 2009 VIRTUAL COLONOSCOPY 2009 PNEUMOCOCCAL VACCINES (50+ y ears) (1 of 1 - PCV) 2014 ZOSTER VACCINES (1 of 2) 2014 COVID-19 VACCINE (1 - 2023-2 5 season) 2024 RSV VACCINE (1 - 1-dose 75+ series) 2039 HEPATITIS A VACCINES Aged Out No long er eligible based on patient's age to complete this topic HIB VACCINES Aged Out No longer eligi ble based on patient's age to complete this topic MENINGOCOCCAL VACCINES (ACWY) Aged Out No longer eligible based on patient's age to complete this topic MENINGOCOCCAL VACCINES (B) Aged Out N o longer eligible based on patient's age to complete this topic Medical Devices Not on file Insurance [facility] [address] [place] [address] [facility] Care Teams School Secretary Relationship Specialty Start Date End Date Gilbert Torres MD [address] [place] [id number] PCP - General Internal Medicine 08/02/21 Additional Source Comments The information contained in this document represents components of the legal health record. It is not the complete legal health record.[facility]
== END 2025-04-25 11:06 | disposition home or self-care (01) ==
LOC: HO.HOS 10:40
PROVIDERS: PCP Internal Medicine; Referring Provider Orthopaedic Surgery; Visit Provider Orthopaedic Surgery
DX: M17.0 Bilateral primary osteoarthritis of knee (principal)
CPT/HCPCS: 99213; G2211

== ENCOUNTER → 2025-04-25 10:39 | Outpatient (BNVA) | payer OTHER, SELFPAY | PROVIDERS: PCP Internal Medicine; Visit Provider Orthopaedic Surgery | DX: M17.12 Unilateral primary osteoarthritis, left knee (principal); M17.11 Unilateral primary osteoarthritis, right knee | CPT/HCPCS: 99212 ==

== ENCOUNTER 2025-06-13 08:39 | Outpatient (AMB) | payer OTHER, SELFPAY ==
--- NOTE | 2025-06-13 08:52 | MHC.OFFVIS ---
Vital Signs 06/13/25 08:53 Height 5 ft 10 in Weight 223 lb 8 oz BMI 32.1 BP 132/78 Blood Pressure Location Rt brachial Position Sitting Pulse 56 Pulse Source Pulse Oximeter Pulse Oximetry (%) 97 Oxygen Delivery Method Room Air Intake Visit Reasons: copd: 6 month f/u Allergies amlodipine Adverse Reaction (Intermediate, Verified 06/13/25 08:57) edema of legs lisinopril Adverse Reaction (Intermediate, Verified 06/13/25 08:57) Cough HPI HPI copd: 6 month f/u: Details: Kvng is a pleasant 59 year old male, with less than 10 pack year history, quit 30+ years ago, with underlying asthma COPD overlap and hypertension. Patient has been well controlled on Wixela 250 mcg, using albuterol MDI/neb infrequently. At this time he denies any respiratory symptoms. He denies any visits to urgent care or hospitalizations since the last visit. [facility] Medical History (Updated 04/25/25 @ 11:13 by Jack Lei MD) Skin cancer PONV (postoperative nausea and vomiting) Migraine Elevated cholesterol HTN (hypertension) Asthma-COPD overlap syndrome Pulmonary nodule Surgical History (Updated 03/07/25 @ 09:38 by Blessing Cameron PA-C) Hx of appendectomy History of surgery on upper extremity Hx of arthroscopy of shoulder H/O colonoscopy Hx of knee surgery Social History Are you a primary home care associate to a significant other at home: No Do you presently have visiting nurse or other home services: No Patient Tobacco Use Status: Former Tobacco user Tobacco use type: Cigarette Cigarette Packs Per Day: 1 Years Smoked: 5 Current occupational status: employed 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, 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 Review of Systems Const Denies chills, Denies excessive sweating, Denies fever(s), Denies headache(s) and Denies night sweats Eyes Denies dry eyes, Denies irritation and Denies itchy eyes ENT Reports Normal hearing present, Denies headache(s), Denies nasal congestion, Denies nasal discharge, Denies post nasal drip and Denies sore throat Card Denies chest pain, Denies chest pain at rest, Denies chest pain with activity, Denies claudication, Denies leg edema, Denies dyspnea, Denies dyspnea on exertion, Denies orthopnea and Denies paroxysmal nocturnal dyspnea Resp Denies chest congestion, Denies cough, Denies excessive phlegm production, Denies pain on inspiration, Denies pain with cough, Denies dyspnea, Denies dyspnea on exertion, Denies stridor and Denies wheezing Musc Denies myalgias Neuro Reports Normal hearing present and Denies headache(s) Endo Denies excessive sweating Mauricio/Lymph Denies lymphadenopathy Aller/Immun Denies itchy eyes, Denies seasonal rhinorrhea and Denies wheezing Physical Exam Vital Signs: Last Vital Signs Pulse 56 06/13/25 08:53 BP 132/78 06/13/25 08:53 Pulse Ox 97 06/13/25 08:53 Oxygen Delivery Method Room Air 06/13/25 08:53 BMI result Body Mass Index 32.1 Const General: cooperative, healthy appearing, comfortable, no acute distress, well developed and alert Nutritional Appearance: obese Orientation/consciousness: patient oriented x3 Limitations: no limitations HEENT Head: Yes normal to inspection, Yes normocephalic and Yes atraumatic Ears: hearing grossly normal bilaterally and external ears normal Eyes General: appearance normal, both eyes and all related structures Eyelids: Yes eyelids normal Sclerae: sclerae normal EOM: EOMs intact bilaterally Neck Neck: Yes normal visual inspection and Yes no lymphadenopathy Lymphatic: no lymphadenopathy noted Chest Chest palpation & inspection: normal inspection of the chest Resp Effort & Inspection: normal respiratory effort, able to speak in complete sentences, no audible wheezes, no cough, no stridor, not tachypneic, no tripod positioning and no use of accessory muscles Auscultation: clear to auscultation bilaterally Cardio Jugular venous distension: no JVD Rate: regular rate Rhythm: regular rhythm Skin Other: warm, dry General skin exam: no rashes or lesions noted Neuro General: patient oriented x3 Cranial nerves: Yes Normal hearing present Cognition (Neuro): normal cognition Gait exam (Neuro): Normal gait present Extrem General: Yes normal to inspection, Yes capillary refill normal, Yes no clubbing, cyanosis or edema and Yes no pedal edema Psych Appearance: grossly normal and well kempt Speech and movement: Normal speech and movement present and Clear speech present Affect: normal affect Attitude: cooperative Thought process: Normal thought process present Thought content: Normal thought content present Insight: Good insight present (Psych) Judgement: Good judgement present (Psych) Assessment & Plan Assessment & Plan (1) Asthma: Code(s): J45.909 - Unspecified asthma, uncomplicated Category: Medical (2) Dyspnea: Code(s): R06.00 - Dyspnea, unspecified Category: Medical Plan At this time, Kvng reports good control of respiratory symptoms, advised to continue. Will send refills. He is aware to call if symptoms change. All questions were answered and patient is in agreement of plan. Will follow in 6 months or sooner if needed. Medications: Refilled fluticasone propion-salmeterol 250-50 mcg/dose (Wixela Inhub) 1 inh inhalation Q12H 60 ea 6RF Coding Level of Care Code Est Pt Level 3 (96854) Diagnoses Asthma J45.909 Dyspnea R06.00
[2025-06-13 08:53] VITALS: BP 132/78; PULSE 56; O2SAT 97; BMI 32.1
--- OUTSIDE RECORDS SUMMARY | 2025-06-13 09:04 | XMS_ITS | Data Portability ---
Author Organization [place] - [facility], Allergy Address [address] [address] Care Team Providers Care Freight Elevator Operator Name Role Phone JERICHO TORRES Primary Care [...] 1B, pleae schedule for June 102023 025 [email or web address] [facility] [place], [address] , [facility] [address], [place], [address], 05/17/2025 10:20:07 Medication Orders None recorded. Patient TargetsNo targets recorded. Patient InstructionsNo instructions recorded. Reason for Referral None Reported. Problems Name Problem SNOMED Code Status Onset Date Resolution Date Notes Provider Name and Address Organization Details Recorded Time Mass of neck 853965497 Active 2022 Localized swelling, mass and lump, neck; Note: Date Diagnosed: 09/08/2022 2:30 PM (R22.1) Not Available [facility] 4 02:43:36 Neck swelling 325610706 Active 2022 Localized swelling, mass and lump, neck; Note: Date Diagnosed: 09/08/2022 2:30 PM (R22.1) Not Available [facility] 4 02:43:36 Problem Notes None recorded. Medical Equipment None Reported. Allergies No known drug allergies Medications Name Sig Start Date Stop Date Status Note LastModified by Organization Details LastModified Time magnesium oxide 420 mg tablet active Not Available Not Available No t Available atorvasta tin 10 mg tablet active Medicati on ID: [id number] B rand Name: atorvast atin Sen d Method: E-Prescr ibed Sub s Allowed: subs OK Medic ationGen ericName : atorvast atin Not Available Not Available Not Available amlodipin e 2.5 mg tablet 07/12 completed Medicati on ID: [id number] B rand Name: amlodipi ne Send Method: [...] Updated DateTime 07/12/2024 177.8 cm 30.8 kg/m2 91282.36 g Cristela Potvin [place] - [facility] 07/12/2024 14:58:35 Social History None recorded. Functional Status None recorded. Mental Status None recorded. Family History Nothing Reported. Medical History No medical history recorded. Past Encounters Encounter ID Performer Location Encounter Start Date Encounter Closed Date Diagnosis/Indication Diagnosis SNOMED-CT Code Diagnosis ICD10 Code Diagnosis IMO Codes Diagnosis Note [id number] LUKAS NAQVI MD [facility] of [address] [address] 07/12/2024 14:41:03 07/12/2024 15:09:15 Neck swelling 339301532 R22.1 Health Concerns Section Related Observation LastModified by Organization Detai ls LastModified Time None Recorded Concern Status LastModified by Organization Details LastModified Time None Recorded Advance Directives Directive None Recorded Payers Insurance Date Sequence Insurance Name Policy Number Policy Rust Covered Member ID Rust Member ID Guarantor Name 05/30/2025 [employer] - [place] [facility] ([facility]) Kvng Dickerson [id number] Kvng Cosme Notes Date Note Type Note Provider Name and Address Organization Details Recorded Time 07/12/2024 text/html 59-year-old male presents today for evaluation of left-sided dermal nodules. He has had these present since at least 2020, and we have been monitoring them for about 2 years without any significant change. LUKAS NAQVI MD [address] [place] [address], [phone], [place] - [facility] 07/13/2024 10:52:35
--- OUTSIDE RECORDS SUMMARY | 2025-06-13 09:04 | XMS_ITS | Clinical Summary ---
Author Organization [facility] Address [address] [place] [phone] Phone Care Team Providers Care Gin Clerk Name Role Phone Gilbert Torres MD Primary [...] 2014 ZOSTER VACCINES (1 of 2) 2014 INFLUENZA VACCINE (#1) 2025 05/17/2024 COVID-19 VACCINE (1 - 2024-2 6 season) 2025 RSV VACCINE (1 - 1-dose 75+ series) [...] topic Medical Devices Not on file Insurance [facility] Care Teams Gin Clerk Relationship Specialty Start Date End Date Gilbert Torres MD [address] [place] [id number] PCP - General Internal Medicine 08/02/21 Additional Source Comments The information contained in this document represents components of the legal health record. It is not the complete legal health record.[facility]
== END 2025-06-13 09:07 | disposition home or self-care (01) ==
LOC: HO.HPSW 08:40
PROVIDERS: PCP Family Medicine; Visit Provider Nurse Practitioner Family
DX: J45.909 Unspecified asthma, uncomplicated (principal); R06.00 Dyspnea, unspecified
CPT/HCPCS: 99213

== ENCOUNTER → 2025-06-13 08:39 | Outpatient (BNVA) | payer OTHER, SELFPAY | PROVIDERS: PCP Family Medicine; Visit Provider Nurse Practitioner Family | DX: J45.909 Unspecified asthma, uncomplicated (principal); R06.00 Dyspnea, unspecified | CPT/HCPCS: 99212 ==

== ENCOUNTER 2025-06-27 11:11 | Outpatient (AMB) | payer OTHER, SELFPAY ==
--- NOTE | 2025-06-27 11:13 | A.OFFVIS_ITS ---
Intake Visit Reasons: Bilateral knee pain Intake Note: Kvng is a 59 year old male who presents with complaints of bilateral knee pains. He describes his pains as sharp in nature. He has failed the last 3 months of conservative treatment. He has tried Tylenol, anti-inflammatory medicines and physical therapy which aggravated his pain. He has had cortisone injections in the past which gave him minimal relief. He has not had a viscosupplementation injection. He continues to ride his electric bike for [employer]ise. Allergies amlodipine Adverse Reaction (Intermediate, Verified 06/13/25 08:57) edema of legs lisinopril Adverse Reaction (Intermediate, Verified 06/13/25 08:57) Cough Medication List - Last Reconciled 06/27/25 by Jack Lei MD albuterol sulfate 2.5 mg (3 mL) inhalation Q4-6H PRN albuterol sulfate 90 mcg/actuation 2 puffs inhalation Q4-6H PRN atorvastatin 10 mg PO BEDTIME fluticasone propion-salmeterol 250-50 mcg/dose (Wixela Inhub) 1 inh inhalation Q12H losartan 25 mg PO BEDTIME magnesium oxide 420 mg PO DAILY metoprolol succinate ER 25 mg PO BID PFSH Medical History (Updated 04/25/25 @ 11:13 by Jack Lei MD) Skin cancer PONV (postoperative nausea and vomiting) Migraine Elevated cholesterol HTN (hypertension) Asthma-COPD overlap syndrome Pulmonary nodule Surgical History (Updated 03/07/25 @ 09:38 by Blessing Cameron PA-C) Hx of appendectomy History of surgery on upper extremity Hx of arthroscopy of shoulder H/O colonoscopy Hx of knee surgery Social History Are you a primary career developer to a significant other at home: No Do you presently have visiting nurse or other home services: No Patient Tobacco Use Status: Former Tobacco user Tobacco use type: Cigarette Cigarette Packs Per Day: 1 Years Smoked: 5 Current occupational status: employed 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, 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 Exam Const Other: Well-nourished well-developed very friendly male awake alert and oriented x3 in no acute distress Extrem Other: Bilateral knee examination shows minimal effusions, palpable crepitus with range of motion, pain with range of motion, no instability Office Procedures AMB Joint Injection/Aspiration Joint Injection/Aspiration Primary Site: left knee Prep: site was prepped using aseptic technique Injected: 60 mg of (Durolane viscosupplementation), with 4 mL of and 1% plain lidocaine Procedure: The patient tolerated the procedure well Coding 99463 - Large joint Procedure code (CPT) selection complete AMB Joint Injection/Aspiration Joint Injection/Aspiration Primary Site: right knee Prep: site was prepped using aseptic technique Injected: 60 mg of (Durolane viscosupplementation), with 4 mL of and 1% plain lidocaine Procedure: The patient tolerated the procedure well Coding 06110 - Large joint Procedure code (CPT) selection complete Results Reviewed Results Reviewed: X-rays of the patient's bilateral knees taken previously show joint space narrowing, subchondral sclerosis, no acute bony abnormalities Assessment & Plan Assessment & Plan (1) Osteoarthritis of left knee: Code(s): M17.12 - Unilateral primary osteoarthritis, left knee Category: Medical (2) Osteoarthritis of right knee: Code(s): M17.11 - Unilateral primary osteoarthritis, right knee Category: Medical (3) Pain in both knees: Code(s): M25.561 - Pain in right knee; M25.562 - Pain in left knee Plan Mr. Csome presents with bilateral knee pains due to osteoarthritis. The risks and benefits of bilateral knee Durolane viscosupplementation injections were discussed at length with the patient. The patient wished to proceed. He tolerated the injections well. He will continue with his home exercise program. He will contact me prior to his follow-up appointment in 3 months should any questions or concerns arise. Feel free to call me at any time should questions regarding his orthopedic management arise. I spent 22 minutes in reviewing the patient's records and imaging studies, seeing the patient and documenting in the medical record. Orders: Orders AMB Joint Injection/Aspiration Today M17.12 - Unilateral primary osteoarthritis, left knee AMB Joint Injection/Aspiration Today M17.11 - Unilateral primary osteoarthritis, right knee Coding Level of Care Code Est Pt Level 3 (50829) Complex EM visit Add On G2211 Diagnoses Osteoarthritis of left knee M17.12 Osteoarthritis of right knee M17.11 Pain in both knees M25.561; M25.562 CPT Codes Coding - 12431 Large joint: 16282 - Large joint ([id number]) Coding - 19755 Large joint: 74699 - Large joint ([id number])
--- OUTSIDE RECORDS SUMMARY | 2025-06-27 14:29 | XMS_ITS | Clinical Summary ---
Author Organization [facility] Address [address] [place] [address] Phone Care Team Providers Care Mental Health Social Worker Name Role Phone Gilbert Torres MD Primary [...] topic Medical Devices Not on file Insurance [facility] Care Teams Mental Health Social Worker Relationship Specialty Start Date End Date Gilbert Torres MD [address] [place] [phone] PCP - General Internal Medicine 08/02/21 Additional Source Comments The information contained in this document represents components of the legal health record. It is not the complete legal health record.[facility]
--- OUTSIDE RECORDS SUMMARY | 2025-06-27 14:29 | XMS_ITS | Data Portability ---
Author Organization [place] [facility] Address [address] [address] Care Team Providers Care Window Tinter Name Role Phone JERICHO TORRES Primary Care Provider [phone] Assessment Encounter Date Assessment Date Assessment LastModified [...] 1B, pleae schedule for June 102023 025 [email or web address] [facility], [address] , [facility] [address], [place], [address], 05/17/2025 10:20:07 Medication Orders None recorded. Patient TargetsNo targets recorded. Patient InstructionsNo instructions recorded. Reason for Referral None Reported. Results Created Date Observation Date Name Description Value Unit Range Abnormal Flag Note LastModifiedBy Organization Detail LastModifiedTime 06/25/2006/22/2025 US, neck, soft tissu e No observ ation record ed. [email or web address] [facility] [address] [facility] [address], [place], [address], 06/27/2025 12:30:36 Result Notes None recorded. Problems Name Problem SNOMED Code Status Onset Date Resolution Date Notes Provider Name and Address Organization Details Recorded Time Mass of neck 504502334 Active 2022 Localized swelling, mass and lump, neck; Note: Date Diagnosed: 09/08/2022 2:30 PM (R22.1) Not Available [facility] 4 02:43:36 Neck swelling 318481266 Active 2022 Localized swelling, mass and lump, neck; Note: Date Diagnosed: 09/08/2022 2:30 PM (R22.1) Not Available [facility] 4 02:43:36 Localized enlarged lymph nodes 292349753 Active 2024 LUKAS NAQVI MD [address] [place] [address], [place], [address] , [facility] - [facility] 12:30:54 Problem Notes None recorded. Medical Equipment None Reported. Allergies No known drug allergies Medications Name Sig Start Date Stop Date Status Note LastModified by Organization Details LastModified Time magnesium oxide 420 mg tablet active Not Available Not Available No t Available atorvasta tin 10 mg tablet active Medicati on ID: [id number] B rand Name: atorvast atin Sen d Method: E-Prescr ibed Sub s Allowed: subs OK Medic ationGen ericName : atorvast atin Not Available Not Available Not Available amlodipin e 2.5 mg tablet 07/12 completed Medicati on ID: [id number] B rand Name: amlodipi ne Send Method: [...] Updated DateTime 07/12/2024 177.8 cm 30.8 kg/m2 52507.36 g Cristela Bosch [place] - [facility] 07/12/2024 14:58:35 Social History None recorded. Functional Status None recorded. Mental Status None recorded. Family History Nothing Reported. Medical History No medical history recorded. Past Encounters Encounter ID Performer Location Encounter Start Date Encounter Closed Date Diagnosis/Indication Diagnosis SNOMED-CT Code Diagnosis ICD10 Code Diagnosis IMO Codes Diagnosis Note [id number] LUKAS NAQVI MD [facility] on [address] [place] [address] 07/12/2024 14:41:03 07/12/2024 15:09:15 Neck swelling 285582103 R22.1 Health Concerns Section Related Observation LastModified by Organization Detai ls LastModified Time None Recorded Concern Status LastModified by Organization Details LastModified Time None Recorded Advance Directives Directive None Recorded Payers Insurance Date Sequence Insurance Name Policy Number Policy Rust Covered Member ID Rust Member ID Guarantor Name 05/30/2025 [employer] [facility] [place] [facility] Kvng Dickerson [id number] Kvng Cosme Notes Date Note Type Note Provider Name and Address Organization Details Recorded Time 07/12/2024 text/html 59-year-old male presents today for evaluation of left-sided dermal nodules. He has had these present since at least 2020, and we have been monitoring them for about 2 years without any significant change. LUKAS NAQVI MD [address] [place] [address], [phone], [place] - [facility] 07/13/2024 10:52:35
== END 2025-06-27 11:52 | disposition home or self-care (01) ==
LOC: HO.HOS 11:12
PROVIDERS: PCP Internal Medicine; Visit Provider Orthopaedic Surgery
DX: M17.0 Bilateral primary osteoarthritis of knee (principal)
CPT/HCPCS: 20610; 99213

== ENCOUNTER → 2025-06-27 11:11 | Outpatient (BNVA) | payer OTHER, SELFPAY | PROVIDERS: PCP Internal Medicine; Visit Provider Orthopaedic Surgery | DX: M17.0 Bilateral primary osteoarthritis of knee (principal); M25.561 Pain in right knee; M25.562 Pain in left knee | CPT/HCPCS: 20610; 99212; J2003; J7318 ==